=== PATIENT | male | born 1955 | race Caucasian/White ===

== ENCOUNTER → 2018-01-06 | Outpatient (CLI) | payer BC ==
[~2018-01-06] MED LIST: ATOR-24 PO; MELO7.5T5 PO; METF-383 PO; OMEP40CA PO; propanolol PO
--- NOTE | 2018-01-06 18:00 | DIAGNOSTIC IMAGING REPORT ---
L HAND MIN 3 VIEWS ROUTINE CLINICAL HISTORY: M79.641, M79.642, Z00.00 LEFT HAND PAIN. ARTHRITIS. COMPARISON: None. DISCUSSION: The bones are mildly osteopenic. No acute fractures are visualized. There are mild osteoarthritic changes present most pronounced the level of the distal interphalangeal joints, and first and second carpal metacarpal joints. No erosive changes are visualized IMPRESSION: Mild osteoarthritic change. No evidence of erosive disease. Electronically signed by: Marcio Rosen M.D. 01/06/2018 5:59 PM Dictated Date/Time: 01/06/2018 5:58 PM
--- NOTE | 2018-01-06 18:03 | DIAGNOSTIC IMAGING REPORT ---
L KNEE 1 OR 2 VIEWS ROUTINE, R KNEE 1 OR 2 VIEWS ROUTINE HISTORY: 62 years-old Male M79.641, M79.642, Z00.00 chronic bilateral knee pain with history of arthritis COMPARISON: Left knee radiographs 03/04/2008 TECHNIQUE: 2 views of the bilateral knees FINDINGS: LEFT: Left knee arthroplasty noted with satisfactory alignment. No evidence of hardware fracture or loosening. Prior patellar resurfacing. Linear ossifications are noted adjacent to the lateral aspect of the lateral femoral condyle and medial tibial plateau suggesting fragmented osteophytes. No large joint effusion. 4 mm ossification projects over Hoffa fat pad, possibly reflecting a loose body. RIGHT: Mild to moderate medial and lateral compartment joint space narrowing with mild patellofemoral joint space narrowing. The bones appear mildly demineralized. No acute fracture or subluxation. No large joint effusion or opaque foreign body. IMPRESSION: 1. Left knee total joint arthroplasty without evidence of hardware complication. 2. 4 mm ossification projecting over the left infra-patellar fat region may reflect a loose body. 3. No acute fracture or subluxation. 4. Tricompartmental osteoarthritis about the right knee, mild to moderate. The above report was generated using voice recognition software. It may contain grammatical, syntax or spelling errors. Electronically signed by: Antonio Lindquist M.D. 01/06/2018 6:02 PM Dictated Date/Time: 01/06/2018 5:57 PM
--- NOTE | 2018-01-06 18:10 | DIAGNOSTIC IMAGING REPORT ---
R HAND MIN 3 VIEWS ROUTINE CLINICAL HISTORY: M79.641, M79.642, Z00.00 RIGHT HAND PAIN COMPARISON: None. DISCUSSION: The bones are mildly osteopenic. The patient was unable to straighten his fingers fully. There are no erosive changes. There are mild osteoarthritic changes in the hand. There are moderate osteoarthritic changes in the wrist with significant narrowing of the lunate capitate interspace.. IMPRESSION: 1. No acute fractures 2. Osteoarthritic changes, most pronounced within the wrist 3. No evidence of erosive disease Electronically signed by: Marcio Rosen M.D. 01/06/2018 6:08 PM Dictated Date/Time: 01/06/2018 6:07 PM
[2018-01-06 18:25] LABS: TRANSFERRIN 232 mg/dl (200-360)
== END | disposition home or self-care (01) ==
LOC: C.RAD 17:22
PROVIDERS: ATTEND Internal Medicine Rheumatology
DX: Z00.00 Encounter for general adult medical examination without abnormal findings (principal); M79.641 Pain in right hand; M79.642 Pain in left hand; Z96.652 Presence of left artificial knee joint; M17.11 Unilateral primary osteoarthritis, right knee

== ENCOUNTER → 2018-01-23 | Outpatient (CLI) | payer BC ==
[2018-01-23 10:10] LABS: BASO % 0.1 %; BASO ABS # 0.01 K/uL (0-0.2); EOS % 0.5 %; EOS ABS # 0.06 K/uL (0-0.5); HEMATOCRIT 36.3 % (42-52); HEMOGLOBIN 12.4 g/dL (14.0-18.0); IG# 0.03 K/uL (0.00-0.02); LYMPH ABS # 3.03 K/uL (1.2-3.4); MEAN CELL VOLUME 91.4 fL (80-100); MEAN CORPUSCULAR HEMOGLOBIN 31.2 pg (25-34); MEAN CORPUSCULAR HGB CONC 34.2 g/dl (32-36); MEAN PLATELET VOLUME 10.3 fL (7.4-10.4); MONO % 4.1 %; MONO ABS # 0.46 K/uL (0.11-0.59); NEUT ABS # 7.65 K/uL (1.4-6.5); PLATELET COUNT 216 K/uL (130-400); RED CELL DISTRIBUTION WIDTH CV 14.6 % (11.5-14.5); RED CELL DISTRIBUTION WIDTH SD 48.7 fL (36.4-46.3); WHITE BLOOD COUNT 11.24 K/uL (4.8-10.8)
[2018-01-23 10:41] LABS: HEMOGLOBIN A1C 6.6 % (4.5-5.6)
[2018-01-23 10:42] LABS: ALBUMIN 4.2 gm/dl (3.4-5.0); ALT/SGPT 27 U/L (12-78); AST/SGOT 14 U/L (15-37); BLOOD UREA NITROGEN 25 mg/dl (7-18); CALCIUM 8.9 mg/dl (8.5-10.1); CARBON DIOXIDE 29 mmol/L (21-32); CREATININE 0.79 mg/dl (0.60-1.40); GLUCOSE 122 mg/dl (70-99); POTASSIUM 4.5 mmol/L (3.5-5.1); SODIUM 136 mmol/L (136-145)
[2018-01-23 10:47] LABS: ALKALINE PHOSPHATASE 59 U/L (45-117); CHOLESTEROL 144 mg/dl (0-200); LDL CHOLESTEROL CALCULATED 65 mg/dl; TOTAL PROTEIN 7.7 gm/dl (6.4-8.2)
== END | disposition home or self-care (01) ==
LOC: C.LAB1850 09:24
PROVIDERS: ATTEND Physician Assistant
DX: Z00.00 Encounter for general adult medical examination without abnormal findings (principal); E11.9 Type 2 diabetes mellitus without complications

== ENCOUNTER → 2018-05-13 | Outpatient (CLI) | payer BC ==
[2018-05-13 15:36] LABS: BASO % 0.4 %; BASO ABS # 0.03 K/uL (0-0.2); EOS % 1.3 %; EOS ABS # 0.09 K/uL (0-0.5); HEMATOCRIT 35.5 % (42-52); HEMOGLOBIN 11.8 g/dL (14.0-18.0); IG# 0.03 K/uL (0.00-0.02); LYMPH % 48.8 %; LYMPH ABS # 3.35 K/uL (1.2-3.4); MEAN CELL VOLUME 100.6 fL (80-100); MEAN CORPUSCULAR HEMOGLOBIN 33.4 pg (25-34); MEAN CORPUSCULAR HGB CONC 33.2 g/dl (32-36); MEAN PLATELET VOLUME 10.7 fL (7.4-10.4); MONO % 7.4 %; MONO ABS # 0.51 K/uL (0.11-0.59); NEUT % 41.7 %; NEUT ABS # 2.86 K/uL (1.4-6.5); PLATELET COUNT 203 K/uL (130-400); RED CELL DISTRIBUTION WIDTH CV 17.6 % (11.5-14.5); RED CELL DISTRIBUTION WIDTH SD 64.1 fL (36.4-46.3); WHITE BLOOD COUNT 6.87 K/uL (4.8-10.8)
[2018-05-13 16:09] LABS: ALBUMIN 4.2 gm/dl (3.4-5.0); ALKALINE PHOSPHATASE 54 U/L (45-117); ALT/SGPT 38 U/L (12-78); AST/SGOT 18 U/L (15-37); CREATININE 0.85 mg/dl (0.60-1.40); TOTAL PROTEIN 7.4 gm/dl (6.4-8.2)
== END | disposition home or self-care (01) ==
LOC: C.LAB1850 14:11
PROVIDERS: ATTEND Internal Medicine Rheumatology
DX: M06.09 Rheumatoid arthritis without rheumatoid factor, multiple sites (principal); Z79.899 Other long term (current) drug therapy; K21.9 Gastro-esophageal reflux disease without esophagitis

== ENCOUNTER 2019-04-20 16:14 | Inpatient (IN) ==
[2019-04-20] MEDS ORDERED: MoRPHine SULFATE 4 MG/ML 1 ML CARP\\VIAL IV STA (17:38)
[2019-04-20] MEDS ORDERED: ONDANSETRON INJ 2 MG/ML 2 ML VIAL IV STA (17:38)
[2019-04-20] MEDS: SODIUM CHLORIDE 0.9% 1000ML 1,000 ML IV SCH ×2 (18:41→18:42)
[2019-04-20 18:43] LABS: Basophils # (auto) 0.04 K/uL (0-0.2); Basophils % (auto) 0.9 %; Eosinophils # (auto) 0.13 K/uL (0-0.5); Hematocrit (blood only) 37.4 % (42-52); Lymphocytes # (auto) 1.75 K/uL (1.2-3.4); Lymphocytes % (auto) 40.9 %; Mean Corpuscular Hgb Conc 34.8 g/dL (32-36); Mean Corpuscular Volume 93.7 fL (80-100); Mean Platelet Volume 11.2 fL (7.4-10.4); Monocytes % (auto) 9.3 %; Neutrophils # (auto) 1.96 K/uL (1.4-6.5); Neutrophils % (auto) 45.9 %; Platelet Count 162 K/uL (130-400); RDW Coefficient of Variation 15.3 % (11.5-14.5); RDW Standard Deviation 50.7 fL (36.4-46.3); Red Blood Count 3.99 M/uL (4.7-6.1); White Blood Count 4.28 K/uL (4.8-10.8)
[2019-04-20 18:51] LABS: INR 1.2 (0.9-1.1); Prothrombin Time 12.6 Seconds (9.0-12.0)
[2019-04-20 18:59] LABS: Alanine Aminotransferase 30 U/L (12-78); Aspartate Aminotransferase 37 U/L (15-37); BUN Creatinine Ratio 4.3 (10-20); Blood Urea Nitrogen 6 mg/dl (7-18); Carbon Dioxide 28 mmol/L (21-32); Chloride 103 mmol/L (98-107); Creatinine Clr Calc Pharmacy 61.3 ml/min; Est GFR (African American) 59.8; Est GFR (Non-African American) 51.6; Glucose 126 mg/dl (70-99); Potassium 3.1 mmol/L (3.5-5.1); Sodium 141 mmol/L (136-145)
[2019-04-20 19:04] LABS: Albumin Globulin Ratio 1.4 (0.9-2); Alkaline Phosphatase 36 U/L (45-117); Bilirubin,Total 1.6 mg/dl (0.2-1); Globulin 2.9 gm/dl (2.5-4.0); Total Protein 6.9 gm/dl (6.4-8.2); Troponin I < 0.015 ng/ml (0-0.045)
[2019-04-20] MEDS ORDERED: SODIUM CHLORIDE 0.9% 1000ML 1,000 ML IV ONE (19:43)
[2019-04-20] MEDS ORDERED: IOVERSOL 100ml IV PRN (20:07)
[2019-04-20 20:22] LABS: Appearance Urine Clear (Clear); Bilirubin Urine Negative (Negative); Blood Urine Negative (Negative); Color Urine Yellow; Glucose Urine UA Negative (Negative); Ketones Urine Trace (Negative); Leukocyte Esterase Urine Negative (Negative); Nitrite Urine Negative (Negative); Protein Urine Negative (Negative); Specific Gravity Urine 1.018 (1.000-1.030); Urobilinogen Urine Negative (Negative)
--- NOTE | 2019-04-20 20:36 | CT Scan Report ---
CT OF THE ABDOMEN AND PELVIS WITH CONTRAST CLINICAL HISTORY: Severe abdominal pain and vomiting. COMPARISON STUDY: CT of the abdomen and pelvis April 13, 2019. TECHNIQUE: Following IV administration of Optiray-320, axial images of the abdomen and pelvis were ob tained from the lung bases to the proximal femurs. Images were reviewed in the axial, sagittal, and c oronal planes. IV contrast was administered without complication. Automated exposure control was uti lized for the study. A dose lowering technique was utilized adhering to the principles of ALARA. CT DOSE: 1050.74 mGy.cm FINDINGS: Fatty infiltration of the liver is noted. The spleen, adrenal glands, kidneys and pancreas are normal. There is no peripancreatic infiltration. No biliary or pancreatic ductal dilatation is no philippe. There is no hydronephrosis. The appendix is normal. The caliber and wall thickness of small and large bowel are normal. Postoperative findings within the spine are noted. There is no lymphadenopath y or ascites. No pneumatosis, free air or portal venous gas is present. Right testis may be located w ithin the right inguinal canal. This was not evident on prior CT. This may reflect a retractile testi s. IMPRESSION: 1. No acute process within the abdomen or pelvis. 2. Fatty liver. Electronically signed by: Steven Jackson M.D. 04/20/2019 8:35 PM
--- NOTE | 2019-04-20 20:51 | XRay Report ---
XR chest 1V portable CLINICAL HISTORY: vomiting COMPARISON STUDY: Chest radiograph April 13, 2019. FINDINGS: Lung volumes are normal. Linear left basilar opacity suggests atelectasis. There is no pneu mothorax or pleural effusion. Mild cardiomegaly is noted. Mediastinal contours are normal. There is n o evidence for pulmonary edema. IMPRESSION: No acute cardiopulmonary findings. Electronically signed by: Steven Jackson M.D. 04/20/2019 8:50 PM
--- NOTE | 2019-04-20 20:53 | Emergency Department Note ---
Entered by Emma Torres acting as a scribe for History of Present Illness General Chief complaint: Pain (Generalized) Stated complaint: STOMACH , BACK, LEG PAIN Source: patient and family History of Present Illness Onset (ago): week(s) 2 Location: abdomen Pain Consistency: + other (persistent) Maximum Pain Intensity: 5 Quality: + other (generalized pain) Relieved By: not by medication (Zofran) Exacerbated By: + eating Associated symptoms: + fever/chills (Positive chills. Negative fever. ), + nausea/vomiting, + weakness and + other (abdomianl pain, fatigue, pain with urination, hard bowel movements, leg swelling, leg pain) The patient is a 63 year old male who presents to the ED with complaints of persistent generalized pain starting 2 weeks ago. Patient was referred in by his PCP. The patient states that for the past 2 weeks he has been unable to keep anything down. He states that he has been able to keep down minimal fluids. He notes that he does feel like something gets stuck when he swallows in his chest. He states that he has also had abdominal pain across where his belt lays. He reports that it is worse with eating. He states that he as at the ED for the same symptoms on the . He states that they did blood work, a chest x-ray and a CT of his chest. He reports that they discharged him with Zofran. He states that he followed up with his PCP who gave him another prescription of Zofran, but it has not been working. He reports that now he is too weak and t ired to do anything. The patient complains of chills, pain with urination starting a few days ago, bowel movements that are hard as a rock, and leg swelling and pain. The patients notes that this is very unlike him and he is usually very busy running around. She notes that he had back surgery 10/10/2018 that he has a 6 month check up tomorrow to be released to go back to work. The patient denies fever. Of note patient does have a history of esophageal stricture with dilation performed around last July. Home Medications Home Medications Medication Instructions Recorded Confirmed Type atorvastatin 40 mg PO QAM 08/07/18 04/20/19 History meloxicam 15 mg PO QAM 08/07/18 04/20/19 History propranolol 20 mg PO BID 08/07/18 04/20/19 History folic acid 1 mg tablet 1 mg PO DAILY #90 tab 03/25/19 04/20/19 Rx metformin 1,000 mg tablet 1,000 mg PO BID #180 tab 03/25/19 04/20/19 Rx omeprazole 20 mg capsule,delayed 20 mg PO BID #180 cap 04/01/19 04/20/19 Rx release etanercept 50 mg/mL (0.98 mL) 50 mg SQ WK ml 04/13/19 04/20/19 History subcutaneous syringe ondansetron 8 mg PO Q8H PRN 04/20/19 04/20/19 History Allergies Allergy/AdvReac Type Severity Reaction Status Date / Time No Known Allergies Allergy Verified 04/20/19 18:38 Past Med/Surg History Medical History Esophageal stricture Central stenosis of spinal canal (Inactive) Sciatica (Inactive) 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 Degenerative disc disease Diabetes mellitus, type 2 History of esophageal stricture S/P DILATION Hyperlipidemia Hypertension Migraine Obesity Rheumatoid arthritis Surgical History History of back surgery History of blepharoplasty History of esophagogastroduodenoscopy (EGD) History of tooth extraction History of total knee replacement LEFT Family History Mother Family history of diabetes mellitus Hypertension Father Cancer Social History Preferred Language: Kazakh Communication Ability: Effective Visual Impairment: No Limitations Hearing Ability: Normal Beliefs That Will Affect Care: None marital status: Current Living Situation: Spouse current occupational status: employed Feels Safe at Home: Yes Smoking Status: Never smoker Second Hand Exposure: No Hx Alcohol Use: No Hx Substance Use: No Review of Systems See HPI for pertinent positives & negatives. and A total of 10 systems reviewed and were otherwise negative Physical Exam Vital Signs Vital Signs - 24 hr 04/20/19 16:32 04/20/19 17:38 04/20/19 18:22 Temperature 36.9 C Temperature Source Oral Sepsis Recent Fever Within 48 Hours No Sepsis Action Taken by Nursing No Action Required Pulse Rate 78 72 73 Pulse Rate [Apical] Pulse Rate from SpO2 Sensor Pulse Rhythm Regular Regular Pulse Rhythm [Apical] Pulse Strength Normal Pulse Strength [Apical] Respiratory Rate 20 20 20 Respiratory Effort / Characteristics Non-Labored Spontaneous Respiratory Depth Normal Respiratory Pattern Blood Pressure 122/80 164/99 H Blood Pressure [Left Arm] Blood Pressure Mean 94 120 Blood Pressure Mean [Left Arm] Blood Pressure Position [Left Arm] Pulse Oximetry 95 97 Oxygen Delivery Method Room Air Room Air 04/20/19 18:31 04/20/19 18:48 04/20/19 18:53 Temperature Temperature Source Sepsis Recent Fever Within 48 Hours Sepsis Action Taken by Nursing Pulse Rate 78 72 70 Pulse Rate [Apical] Pulse Rate from SpO2 Sensor Pulse Rhythm Pulse Rhythm [Apical] Pulse Strength Pulse Strength [Apical] Respiratory Rate 22 19 17 Respiratory Effort / Characteristics Respiratory Depth Respiratory Pattern Blood Pressure 211/140 H 123/72 Blood Pressure [Left Arm] Blood Pressure Mean 163 89 Blood Pressure Mean [Left Arm] Blood Pressure Position [Left Arm] Pulse Oximetry Oxygen Delivery Method 04/20/19 19:00 04/20/19 20:50 Temperature Temperature Source Sepsis Recent Fever Within 48 Hours Sepsis Action Taken by Nursing Pulse Rate 66 Pulse Rate [Apical] 77 Pulse Rate from SpO2 Sensor 65 Pulse Rhythm Pulse Rhythm [Apical] Regular Pulse Strength Pulse Strength [Apical] Normal Respiratory Rate 18 24 Respiratory Effort / Characteristics Non-Labored Respiratory Depth Normal Respiratory Pattern Regular Blood Pressure 131/71 Blood Pressure [Left Arm] 117/76 Blood Pressure Mean 91 Blood Pressure Mean [Left Arm] 89 Blood Pressure Position [Left Arm] Lying Pulse Oximetry 93 93 Oxygen Delivery Method Room Air GENERAL: sitting up in bed, ill appearing, dishevled, falling asleep through conversation EYE EXAM: normal conjunctiva OROPHARYNX: no exudate, no erythema, lips, buccal mucosa, and tongue normal and mucous membranes are moist NECK: supple, no nuchal rigidity, no adenopathy, non-tender LUNGS: Clear to auscultation. Normal chest wall mechanics HEART: no murmurs, S1 normal and S2 normal ABDOMEN: abdomen soft, tender to palpation throughout the upper abdomen, normo- active bowel sounds, no masses, no rebound or guarding. BACK: Back is symmetrical on inspection and there is no deformity, no midline tenderness, no CVA tenderness. SKIN: no rashes and no bruising UPPER EXTREMITIES: upper extremities are grossly normal. LOWER EXTREMITIES: No pitting edema. NEURO EXAM: Normal sensorium, cranial nerves II-XII grossly intact, normal speech, no gross weakness of arms, no gross weakness of legs. Able to ambulate without difficulty. Course ED COURSE: Vital signs were reviewed and showed hypertension situationally. The patients medical record was reviewed The above diagnostic studies were performed and reviewed. ED treatments and interventions as stated above. 1730: The patient was evaluated in room C6. A complete history and physical examination was performed. 1950: I reevaluated the patient and he got up to give a urine at this time. []: Upon reevaluation, the patient is resting comfortably. I discussed my findings with the patient and he understands and agrees with the treatment plan. Based on the patients age, coexisting illnesses, exam and lab findings the decision to treat as an inpatient was made. The patient remained stable while under my care. The patient will be evaluated for further management. []: I discussed the patient's case with []- [] [facility]. They will evaluate the patient for further management. Consultations Consultation #1: I discussed the patient's case with []- [] [facility]. They will evaluate the patient for further management. Administered Medications Ioversol (Optiray 320 100ml) 94 ml IV ONCE PRN PRN Reason: Interaction Checking Stop: 04/24/19 20:06 Last Admin: 04/20/19 20:07 Dose: 94 ml Documented by: [id number] Discontinued Medications Sodium Chloride (Nss 1000ml) 1,000 mls @ 999 mls/hr IV .Q1H1M KATIE Stop: 04/20/19 19:45 Last Infusion: 04/20/19 19:53 Dose: 0 mls/hr Documented by: [id number] Admin: 04/20/19 18:42 Dose: 999 mls/hr Documented by: [id number] Infusion: 04/20/19 18:42 Dose: 999 mls/hr Documented by: [id number] Admin: 04/20/19 18:41 Dose: 999 mls/hr Documented by: [id number] Sodium Chloride (Nss 1000ml) 1,000 mls @ 999 mls/hr IV .Q1H1M ONE Stop: 04/20/19 20:43 Last Admin: 04/20/19 19:58 Dose: 999 mls/hr Documented by: [id number] Morphine Sulfate (Morphine Sulfate) 4 mg IV NOW STA Stop: 04/20/19 17:39 Last Admin: 04/20/19 18:42 Dose: 4 mg Documented by: [id number] Ondansetron HCl (Zofran) 4 mg IV NOW STA Stop: 04/20/19 17:39 Last Admin: 04/20/19 18:42 Dose: 4 mg Documented by: [id number] Medical Decision Making Differential Diagnosis Differential Diagnosis includes but is not limited to dehydration, stroke, anemia, hypoglycemia, hyponatremia, hypernatremia, urinary tract infection, pneumonia, bronchitis, sepsis, gastroenteritis, additional abdominal pathology, metabolic abnormalities and infections. Medical Records Attestation: I reviewed the patient's medical records. Home Medications Current Medication List: was personally reviewed by me Laboratory Data Attestation: I reviewed the patient's lab results. Result diagrams: 04/20/19 18:24 04/20/19 18:24 Lab Results 04/20/19 04/20/19 04/20/19 Range/Units 18:24 18:24 18:24 WBC 4.28 L (4.8-10.8) K/uL RBC 3.99 L (4.7-6.1) M/uL Hgb 13.0 L (14.0-18.0) g/dL Hct 37.4 L (42-52) % MCV 93.7 (80-100) fL MCH 32.6 (25-34) pg MCHC 34.8 (32-36) g/dL RDW Std Deviation 50.7 H (36.4-46.3) fL RDW Coeff of Tanvir 15.3 H (11.5-14.5) % Plt Count 162 (130-400) K/uL MPV 11.2 H (7.4-10.4) fL Immature Gran % (Auto) 0.0 % Neut % (Auto) 45.9 % Lymph % (Auto) 40.9 % [place] % (Auto) 9.3 % Eos % (Auto) 3.0 % Baso % (Auto) 0.9 % Immature Gran # (Auto) 0.00 (0.00-0.02) K/uL Neut # (Auto) 1.96 (1.4-6.5) K/uL Lymph # (Auto) 1.75 (1.2-3.4) K/uL [place] # (Auto) 0.40 (0.11-0.59) K/uL Eos # (Auto) 0.13 (0-0.5) K/uL Baso # (Auto) 0.04 (0-0.2) K/uL PT 12.6 H (9.0-12.0) Seconds INR 1.2 H (0.9-1.1) Sodium 141 (136-145) mmol/L Potassium 3.1 L (3.5-5.1) mmol/L Chloride 103 (98-107) mmol/L Carbon Dioxide 28 (21-32) mmol/L Anion Gap 10.0 (3-11) BUN 6 L (7-18) mg/dl Creatinine 1.45 H (0.6-1.4) mg/dl Est Cr Clr Drug Dosing 61.3 ml/min Est GFR ( Amer) 59.8 Est GFR (Non-Af Amer) 51.6 BUN/Creatinine Ratio 4.3 L (10-20) Glucose 126 H (70-99) mg/dl Calcium 9.0 (8.5-10.1) mg/dl Total Bilirubin 1.6 H (0.2-1) mg/dl AST 37 (15-37) U/L ALT 30 (12-78) U/L Alkaline Phosphatase 36 L (45-117) U/L Troponin I < 0.015 (0-0.045) ng/ml Total Protein 6.9 (6.4-8.2) gm/dl Albumin 4.0 (3.4-5.0) gm/dl Globulin 2.9 (2.5-4.0) gm/dl Albumin/Globulin Ratio 1.4 (0.9-2) Lipase 187 (73-393) U/L Urine Color Urine Appearance (Clear) Urine pH (4.5-7.5) Ur Specific [place] (1.000-1.030) Urine Protein (Negative) Urine Glucose (UA) (Negative) Urine Ketones (Negative) Urine Blood (Negative) Urine Nitrite (Negative) Urine Bilirubin (Negative) Urine Urobilinogen (Negative) Ur Leukocyte Esterase (Negative) 04/20/19 Range/Units 20:03 WBC (4.8-10.8) K/uL RBC (4.7-6.1) M/uL Hgb (14.0-18.0) g/dL Hct (42-52) % MCV (80-100) fL MCH (25-34) pg MCHC (32-36) g/dL RDW Std Deviation (36.4-46.3) fL RDW Coeff of Tanvir (11.5-14.5) % Plt Count (130-400) K/uL MPV (7.4-10.4) fL Immature Gran % (Auto) % Neut % (Auto) % Lymph % (Auto) % [place] % (Auto) % Eos % (Auto) % Baso % (Auto) % Immature Gran # (Auto) (0.00-0.02) K/uL Neut # (Auto) (1.4-6.5) K/uL Lymph # (Auto) (1.2-3.4) K/uL [place] # (Auto) (0.11-0.59) K/uL Eos # (Auto) (0-0.5) K/uL Baso # (Auto) (0-0.2) K/uL PT (9.0-12.0) Seconds INR (0.9-1.1) Sodium (136-145) mmol/L Potassium (3.5-5.1) mmol/L Chloride (98-107) mmol/L Carbon Dioxide (21-32) mmol/L Anion Gap (3-11) BUN (7-18) mg/dl Creatinine (0.6-1.4) mg/dl Est Cr Clr Drug Dosing ml/min Est GFR ( Amer) Est GFR (Non-Af Amer) BUN/Creatinine Ratio (10-20) Glucose (70-99) mg/dl Calcium (8.5-10.1) mg/dl Total Bilirubin (0.2-1) mg/dl AST (15-37) U/L ALT (12-78) U/L Alkaline Phosphatase (45-117) U/L Troponin I (0-0.045) ng/ml Total Protein (6.4-8.2) gm/dl Albumin (3.4-5.0) gm/dl Globulin (2.5-4.0) gm/dl Albumin/Globulin Ratio (0.9-2) Lipase (73-393) U/L Urine Color Yellow Urine Appearance Clear (Clear) Urine pH 5.0 (4.5-7.5) Ur Specific [place] 1.018 (1.000-1.030) Urine Protein Negative (Negative) Urine Glucose (UA) Negative (Negative) Urine Ketones Trace H (Negative) Urine Blood Negative (Negative) Urine Nitrite Negative (Negative) Urine Bilirubin Negative (Negative) Urine Urobilinogen Negative (Negative) Ur Leukocyte Esterase Negative (Negative) Imaging Data Radiologist's Impression: CT OF THE ABDOMEN AND PELVIS WITH CONTRAST CLINICAL HISTORY: Severe abdominal pain and vomiting. COMPARISON STUDY: CT of the abdomen and pelvis April 13, 2019. TECHNIQUE: Following IV administration of Optiray-320, axial images of the abdomen and pelvis were obtained from the lung bases to the proximal femurs. Images were reviewed in the axial, sagittal, and coronal planes. IV contrast was administered without complication. Automated exposure control was utilized for the study. A dose lowering technique was utilized adhering to the principles of ALARA. CT DOSE: 1050.74 mGy.cm FINDINGS: Fatty infiltration of the liver is noted. The spleen, adrenal glands, kidneys and pancreas are normal. There is no peripancreatic infiltration. No biliary or pancreatic ductal dilatation is noted. There is no hydronephrosis. The appendix is normal. The caliber and wall thickness of small and large bowel are normal. Postoperative findings within the spine are noted. There is no lymphadenopathy or ascites. No pneumatosis, free air or portal venous gas is present. Right testis may be located within the right inguinal canal. This was not evident on prior CT. This may reflect a retractile testis. IMPRESSION: 1. No acute process within the abdomen or pelvis. 2. Fatty liver. ECG Data Attestation: I personally reviewed and interpreted this ECG as follows: Indication: abdominal pain Rate (beats per minute): 67 Rhythm: sinus rhythm Findings: + other (t wave flattening in the lateral leads), + RBBB and + prolonged QT; no PVC Comparison ECG Date: from (04/13/2019) Change: the following changes noted (T wave flattening in the lateral leads is new) Blood Pressure Blood Pressure Findings: Elevated blood pressure Blood Pressure Disposition: elevated BP felt to be situational MDM Narrative Patient is a 63-year-old male who presents the ER for diffuse abdominal pain associated with myalgias and feeling food gets stuck and vomiting it back up. He has a past medical history of a previous esophageal stricture with dilation last July. He notes the symptoms do feel slightly similar. Patient was seen here notes that symptom has been present for the past 2 to 3 weeks. He notes he has been unable to eat anything as after eating he vomits everything back up and has severe belly pain. Patient was referred in by the primary care doctor as he is unable to eat anything. He has been using Zofran without improvement. Patient was given IV fluids. Labs show no significant leukocytosis or anemia. BMP with baseline creatinine of 0.9. Currently slightly elevated at 1.45. Potassium was low at 3.1. LFTs was unremarkable. Bilirubin was slightly elevated at 1.6. Troponin was negative. Lipase was unremarkable. Chest x-ray with some atelectasis in left lower lobe. CT abdomen pelvis shows again no acute findings. Patient was given IV fluids. He was given IV Zofran. Updated bedside. Discussed with the hospitalist as he was sent in by the PCP and this is second visit and still unable to keep anything down. Do favor he may end up needing another EGD with the history of esophageal strictures and unable to keep anything down at this time. Discussed with Dr. Joel at 9 PM and patient will be evaluated for further work-up. Impression & Plan Nausea & vomiting, Abdominal pain, Esophageal stricture Discharge Plan Visit Data Chief Complaint: Pain (Generalized) Stated Complaint: STOMACH , BACK, LEG PAIN ED Provider: Clay Garcias Discharge Problem: Nausea & vomiting, Abdominal pain, Esophageal stricture Patient Disposition: Being Evaluated by Hospitalist Forms Stand Alone Forms: My [facility] Prescriptions Prescriptions: No Action folic acid 1 mg tablet 1 mg PO DAILY Qty: 90 RF: 1 metformin 1,000 mg tablet 1,000 mg PO BID Qty: 180 RF: 1 omeprazole 20 mg capsule,delayed release(DR/EC) 20 mg PO BID Qty: 180 RF: 3 Enbrel 50 mg/mL (0.98 mL) syringe 50 mg SQ WK RF: 0 ondansetron 8 mg tablet,disintegrating 8 mg PO Q8H PRN (Reason: Nausea) RF: 0 atorvastatin 40 mg Tablet 40 mg PO QAM RF: 0 meloxicam 15 mg Tablet 15 mg PO QAM RF: 0 propranolol 20 mg Tablet 20 mg PO BID RF: 0 Referrals Referrals: Pro,Fadi Lau MD [Primary Care Provider] - The scribe's documentation has been prepared under my direction and personally reviewed by me in its entirety. I confirm that the note above accurately reflects all work, treatment, procedures, and medical decision making performed by me.
--- NOTE | 2019-04-20 22:02 | History & Physical Report ---
Date of Service April 20, 2019 Assessment & Plan (1) Nausea & vomiting: Patient presenting with nausea, post-prandial vomiting and feeling of food getting stuck. 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 EGD performed on 08/04/18 with normal esop hagus. NO endoscopic evidence of Nascimento's esophagus. Biopsy showed inflammation with no evidence of Nascimento's esophagitis. Normal stomach and duodenum. Patient with poor appetite, PO intolerance and post-prandial nausea and vomiting. ?GERD vs esophagitis vs Nascimento's vs stricture. ?steroid withdrawal syndrome? -Observation to medical floor -IVF hydration -Electrolyte repletion -Avoid QT prolonging agents as QTc= 505 -Pepcid 20mg IV BID -GI consultation - appreciate assistance with this case. -NPO for now, holding Meloxicam for now for possible EGD/biopsy Present on Admission?: Yes (2) Acute dehydration: Mildly increased Cr, hypokalemia. Patient reports poor po tolerance. Normal UOP. Received 2L NSS in ER -LR at 125mL/hr x 2 liters -Repeat chemistry in AM Present on Admission?: Yes (3) Hypertension: Blood pressure stable at present -Continue Propranolol -Continue to monitor Present on Admission?: Yes (4) Rheumatoid arthritis: Patient presently on Enbrel q weekly, last received today. Was on MTX and steroids in the past but has since been weaned off. ?steroid withdrawal as patient's symptoms began at the time that steroids were discontinued - weakness/fatigue/lethargy/poor appetite/nausea. He is hemodynamically stable, electrolytes with mild hypokalemia. -Continue Enbrel q weekly -Continue Folic Acid -Will give Prednisone 5mg po daily and assess symptoms -Followup with Rheumatology Present on Admission?: Yes (5) Diabetes: Well controlled with Metformin. BS presently 126, HgAIC=7.2 in September 2018 -Hold Metformin while inpatient -ISS Present on Admission?: Yes (6) High cholesterol: Chronic. -Continue Atorvastatin F/E/N - LR at 125mL/hr x 2 liters, KCL 20mEQ IV, NPO for now Ppx - Pepcid BID, low risk for DVT Code - DNR/DNI per discussion with patient Dispo - Observation to medical floor History of Present Illness Chief Complaint: Nausea, post-prandial vomiting, po intoleratnce Primary Care Provider: Fadi Bhatt MD Jose Amado is a 63yo C male with history of DM, HTN, RA and Nascimento's esophagus s/p dilation presenting with post-prandial nausea and vomiting as well as weakness, fatigue and malaise. Patient with history of RA for which he was taking Prednisone for approximately 3 years. He has since been tapered off - last dose of Prednisone was approximately 3 weeks ago. Patient began feeling unwell shortly after steroids were stopped. He developed nausea, watery diarrhea and post-prandial vomiting 3 weeks ago followed by weakness/fatigue and lethargy appx 2 weeks ago. He has had worsening nausea and dry heaves as well as poor appetite for the last 3-4 days. He reports food getting stuck in the substernal region with vomiting of liquid and mucus 10 minutes after eating. No hematemesis/coffee ground emesis. He has had constipation - last BM yesterday, small/hard stool. Mild lower abdominal pain. He has been taking Zofran frequently at home for nausea. Denies chest pain, palpitations, SOB. No urinary complaints. No fevers/chills. No additional complaints at this time. ER Course: Zofran, Morphine, NSS x 2 liters Allergies Allergy/AdvReac Type Severity Reaction Status Date / Time No Known Allergies Allergy Verified 04/20/19 18:38 Home Medications Home Medications Medication Instructions Recorded Confirmed Type atorvastatin 40 mg PO QAM 08/07/18 04/20/19 History meloxicam 15 mg PO QAM 08/07/18 04/20/19 History propranolol 20 mg PO BID 08/07/18 04/20/19 History folic acid 1 mg tablet 1 mg PO DAILY #90 tab 03/25/19 04/20/19 Rx metformin 1,000 mg tablet 1,000 mg PO BID #180 tab 03/25/19 04/20/19 Rx omeprazole 20 mg capsule,delayed 20 mg PO BID #180 cap 04/01/19 04/20/19 Rx release etanercept 50 mg/mL (0.98 mL) 50 mg SQ WK ml 04/13/19 04/20/19 History subcutaneous syringe ondansetron 8 mg PO Q8H PRN 04/20/19 04/20/19 History Past Med/Surg History Medical History Central stenosis of spinal canal (Inactive) Sciatica (Inactive) 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 Degenerative disc disease Diabetes mellitus, type 2 History of esophageal stricture S/P DILATION Hyperlipidemia Hypertension Migraine Obesity Rheumatoid arthritis Surgical History History of back surgery History of blepharoplasty History of tooth extraction History of total knee replacement LEFT Family History Mother Family history of diabetes mellitus Hypertension Father Cancer Social History Preferred Language: Venezuelan Communication Ability: Effective Visual Impairment: No Limitations Hearing Ability: Normal Beliefs That Will Affect Care: None marital status: Current Living Situation: Spouse current occupational status: employed Feels Safe at Home: Yes Smoking Status: Never smoker Second Hand Exposure: No Hx Alcohol Use: No Hx Substance Use: No Review of Systems Review of Systems: All systems reviewed & are unremarkable except as noted in HPI & below +weakness, lethargy, malaise +dysphagia +appetite loss +constipation Physical Exam Physical Exam: General: patient resting comfortably, NAD, non-toxic in appearance, AA&O x 4 Skin: warm, dry, intact, no rashes or lesions HEENT: NC/AT, PERRL, EOMI, anicteric sclera, conjunctiva without injection, external ear normal to inspection and nontender, nares patent, DRY cracked lips and mucus membranes, adentulous, no oropharyngeal lesions, neck supple, trachea midline, no LAD, no thyromegaly, no JVD Heart: +S1/S2, regular, no m/r/g Lungs: equal air entry bilaterally, no rales/rhonchi/wheezes Abd: +BS, soft, NT/ND, no masses/organomegaly/ascites Ext: warm, 2+ pulses in UE/LE bilaterally, +digital clubbing in fingers, + trace pitting edema of bilateral LEs Neuro: nonfocal, patient AA&O x 4, speech intact, no facial droop, moving all extremities on command with equal strength mildly diminished 4/5 Results & Data Vital Signs (Past 12 Hours) Vital Signs Temp Pulse Pulse Resp BP BP Pulse Ox 04/20/19 20:50 77 24 117/76 93 04/20/19 19:00 66 18 131/71 93 04/20/19 18:53 70 17 123/72 04/20/19 18:48 72 19 211/140 H 04/20/19 18:31 78 22 04/20/19 18:22 73 20 164/99 H 04/20/19 17:38 72 20 97 04/20/19 16:32 36.9 C 78 20 122/80 95 Laboratory Results Lab Results 04/20/19 04/20/19 04/20/19 Range/Units 18:24 18:24 18:24 WBC 4.28 L (4.8-10.8) K/uL RBC 3.99 L (4.7-6.1) M/uL Hgb 13.0 L (14.0-18.0) g/dL Hct 37.4 L (42-52) % MCV 93.7 (80-100) fL MCH 32.6 (25-34) pg MCHC 34.8 (32-36) g/dL RDW Std Deviation 50.7 H (36.4-46.3) fL RDW Coeff of Tanvir 15.3 H (11.5-14.5) % Plt Count 162 (130-400) K/uL MPV 11.2 H (7.4-10.4) fL Immature Gran % (Auto) 0.0 % Neut % (Auto) 45.9 % Lymph % (Auto) 40.9 % Trigg % (Auto) 9.3 % Eos % (Auto) 3.0 % Baso % (Auto) 0.9 % Immature Gran # (Auto) 0.00 (0.00-0.02) K/uL Neut # (Auto) 1.96 (1.4-6.5) K/uL Lymph # (Auto) 1.75 (1.2-3.4) K/uL Trigg # (Auto) 0.40 (0.11-0.59) K/uL Eos # (Auto) 0.13 (0-0.5) K/uL Baso # (Auto) 0.04 (0-0.2) K/uL PT 12.6 H (9.0-12.0) Seconds INR 1.2 H (0.9-1.1) Sodium 141 (136-145) mmol/L Potassium 3.1 L (3.5-5.1) mmol/L Chloride 103 (98-107) mmol/L Carbon Dioxide 28 (21-32) mmol/L Anion Gap 10.0 (3-11) BUN 6 L (7-18) mg/dl Creatinine 1.45 H (0.6-1.4) mg/dl Est Cr Clr Drug Dosing 61.3 ml/min Est GFR ( Amer) 59.8 Est GFR (Non-Af Amer) 51.6 BUN/Creatinine Ratio 4.3 L (10-20) Glucose 126 H (70-99) mg/dl Calcium 9.0 (8.5-10.1) mg/dl Total Bilirubin 1.6 H (0.2-1) mg/dl AST 37 (15-37) U/L ALT 30 (12-78) U/L Alkaline Phosphatase 36 L (45-117) U/L Troponin I < 0.015 (0-0.045) ng/ml Total Protein 6.9 (6.4-8.2) gm/dl Albumin 4.0 (3.4-5.0) gm/dl Globulin 2.9 (2.5-4.0) gm/dl Albumin/Globulin Ratio 1.4 (0.9-2) Lipase 187 (73-393) U/L Urine Color Urine Appearance (Clear) Urine pH (4.5-7.5) Ur Specific [place] (1.000-1.030) Urine Protein (Negative) Urine Glucose (UA) (Negative) Urine Ketones (Negative) Urine Blood (Negative) Urine Nitrite (Negative) Urine Bilirubin (Negative) Urine Urobilinogen (Negative) Ur Leukocyte Esterase (Negative) 04/20/19 Range/Units 20:03 WBC (4.8-10.8) K/uL RBC (4.7-6.1) M/uL Hgb (14.0-18.0) g/dL Hct (42-52) % MCV (80-100) fL MCH (25-34) pg MCHC (32-36) g/dL RDW Std Deviation (36.4-46.3) fL RDW Coeff of Tanvir (11.5-14.5) % Plt Count (130-400) K/uL MPV (7.4-10.4) fL Immature Gran % (Auto) % Neut % (Auto) % Lymph % (Auto) % Trigg % (Auto) % Eos % (Auto) % Baso % (Auto) % Immature Gran # (Auto) (0.00-0.02) K/uL Neut # (Auto) (1.4-6.5) K/uL Lymph # (Auto) (1.2-3.4) K/uL Trigg # (Auto) (0.11-0.59) K/uL Eos # (Auto) (0-0.5) K/uL Baso # (Auto) (0-0.2) K/uL PT (9.0-12.0) Seconds INR (0.9-1.1) Sodium (136-145) mmol/L Potassium (3.5-5.1) mmol/L Chloride (98-107) mmol/L Carbon Dioxide (21-32) mmol/L Anion Gap (3-11) BUN (7-18) mg/dl Creatinine (0.6-1.4) mg/dl Est Cr Clr Drug Dosing ml/min Est GFR ( Amer) Est GFR (Non-Af Amer) BUN/Creatinine Ratio (10-20) Glucose (70-99) mg/dl Calcium (8.5-10.1) mg/dl Total Bilirubin (0.2-1) mg/dl AST (15-37) U/L ALT (12-78) U/L Alkaline Phosphatase (45-117) U/L Troponin I (0-0.045) ng/ml Total Protein (6.4-8.2) gm/dl Albumin (3.4-5.0) gm/dl Globulin (2.5-4.0) gm/dl Albumin/Globulin Ratio (0.9-2) Lipase (73-393) U/L Urine Color Yellow Urine Appearance Clear (Clear) Urine pH 5.0 (4.5-7.5) Ur Specific [place] 1.018 (1.000-1.030) Urine Protein Negative (Negative) Urine Glucose (UA) Negative (Negative) Urine Ketones Trace H (Negative) Urine Blood Negative (Negative) Urine Nitrite Negative (Negative) Urine Bilirubin Negative (Negative) Urine Urobilinogen Negative (Negative) Ur Leukocyte Esterase Negative (Negative) Diagnostic Findings XR chest 1V portable CLINICAL HISTORY: vomiting COMPARISON STUDY: Chest radiograph April 13, 2019. FINDINGS: Lung volumes are normal. Linear left basilar opacity suggests atelectasis. There is no pneumothorax or pleural effusion. Mild cardiomegaly is noted. Mediastinal contours are normal. There is no evidence for pulmonary edema. IMPRESSION: No acute cardiopulmonary findings. Electronically signed by: Steven Jackson M.D. 04/20/2019 8:50 PM Dictated: 04/20/192048 Transcribed: 04/20/192048 CT OF THE ABDOMEN AND PELVIS WITH CONTRAST CLINICAL HISTORY: Severe abdominal pain and vomiting. COMPARISON STUDY: CT of the abdomen and pelvis April 13, 2019. TECHNIQUE: Following IV administration of Optiray-320, axial images of the abdomen and pelvis were obtained from the lung bases to the proximal femurs. Images were reviewed in the axial, sagittal, and coronal planes. IV contrast was administered without complication. Automated exposure control was utilized for the study. A dose lowering technique was utilized adhering to the principles of ALARA. CT DOSE: 1050.74 mGy.cm FINDINGS: Fatty infiltration of the liver is noted. The spleen, adrenal glands, kidneys and pancreas are normal. There is no peripancreatic infiltration. No biliary or pancreatic ductal dilatation is noted. There is no hydronephrosis. The appendix is normal. The caliber and wall thickness of small and large bowel are normal. Postoperative findings within the spine are noted. There is no lymphadenopathy or ascites. No pneumatosis, free air or portal venous gas is present. Right testis may be located within the right inguinal canal. This was not evident on prior CT. This may reflect a retractile testis. IMPRESSION: 1. No acute process within the abdomen or pelvis. 2. Fatty liver. Electronically signed by: Steven Jackson M.D. 04/20/2019 8:35 PM Dictated: 04/20/192025 Transcribed: 04/20/192025 ECG Additional Comments: The study shows NSR at 67bpm, left axis deviation, QP=144, SJO=647, EHa=777, nonspecific ST changes Code Status & VTE Plan Code Status DNR per discussion with patient and Critical Care Time Critical Care Time: No PG Care Time/CCT Total # of Minutes Spent Total Time Spent with Patient: Total time spent is greater than 50% in coordination of care (as documented) at patient's floor/unit and/or counseling patient: Critical Care Time: No (1) Nausea & vomiting Vomiting Intractability: non-intractable Vomiting type: unspecified Qualified Code(s): R11.2 - Nausea with vomiting, unspecified (2) Hypertension Hypertension type: essential hypertension Qualified Code(s): I10 - Essential (primary) hypertension (3) Rheumatoid arthritis Rheumatoid arthritis location: unspecified site Rheumatoid factor presence: unspecified presence Qualified Code(s): M06.9 - Rheumatoid arthritis, unspecified (4) Diabetes Diabetes mellitus type: type 2 Diabetes mellitus manager intermediate insulin use: without retirement use Diabetes mellitus complication status: without complication Qualified Code(s): E11.9 - Type 2 diabetes mellitus without complications
[2019-04-20] MEDS ORDERED: GLUCAGON FOR INJ 1 MG VIAL SQ PRN (23:08)
[2019-04-20] MEDS ORDERED: GLUCOSE 10 TABS/TUBE PO PRN (23:08)
[2019-04-20] MEDS ORDERED: CARBOHYDRATES FOR HYPOGLYCEMIA PO PRN (23:08)
[2019-04-20] MEDS ORDERED: GLUCOSE 40% GEL 15 GM TUBE PO PRN (23:08)
[2019-04-20] MEDS ORDERED: DEXTROSE 50% 50 ML SYRINGE IV PRN (23:08)
[2019-04-20] MEDS ORDERED: POLYETHYLENE (MIRALAX) 17 GM PACK PO PRN (23:08)
[2019-04-20] MEDS ORDERED: DOCUSATE SODIUM 100 MG CAP PO PRN (23:08)
[2019-04-20] MEDS ORDERED: Nursing to Pharmacy Communication ONE (23:24)
[2019-04-20 23:26] LABS: Magnesium 1.5 mg/dl (1.8-2.4)
[2019-04-21] MEDS: LACTATED RINGER'S 1,000 ML IV SCH ×2 (00:05→08:22)
[2019-04-21] MEDS: POTASSIUM CHLORIDE / WTR 10 MEQ/100 ML PLCT IV SCH ×6 (00:07→17:38)
[2019-04-21] MEDS: FAMOTIDINE 20 MG in SYRINGE 3 ML IV SCH ×3 (00:11→21:44)
[2019-04-21 06:20] LABS: Basophils # (auto) 0.03 K/uL (0-0.2); Basophils % (auto) 0.8 %; Eosinophils # (auto) 0.13 K/uL (0-0.5); Eosinophils % (auto) 3.3 %; Hematocrit (blood only) 35.4 % (42-52); Hemoglobin 12.1 g/dL (14.0-18.0); Lymphocytes # (auto) 1.76 K/uL (1.2-3.4); Lymphocytes % (auto) 44.3 %; Mean Corpuscular Hgb Conc 34.2 g/dL (32-36); Mean Corpuscular Volume 92.9 fL (80-100); Mean Platelet Volume 11.5 fL (7.4-10.4); Monocytes # (auto) 0.31 K/uL (0.11-0.59); Monocytes % (auto) 7.8 %; Neutrophils # (auto) 1.74 K/uL (1.4-6.5); Neutrophils % (auto) 43.8 %; Platelet Count 138 K/uL (130-400); RDW Coefficient of Variation 15.2 % (11.5-14.5); RDW Standard Deviation 50.5 fL (36.4-46.3); Red Blood Count 3.81 M/uL (4.7-6.1); White Blood Count 3.97 K/uL (4.8-10.8)
[2019-04-21] MEDS: INSULIN ASPART 100 UNITS/ML 3 ML PEN SC SCH ×4 (06:26→23:59)
[2019-04-21 06:45] LABS: Estimated Average Glucose 186 mg/dl; Hemoglobin A1C 8.1 % (4.5-5.6)
[2019-04-21 06:46] LABS: BUN Creatinine Ratio 3.8 (10-20); Creatinine Clr Calc Pharmacy 77.3 ml/min; Est GFR (African American) 83.5; Est GFR (Non-African American) 72.1; Potassium 3.2 mmol/L (3.5-5.1)
[2019-04-21] MEDS ORDERED: POTASSIUM CHLORIDE 20 MEQ TABCR PO STA (08:11)
[2019-04-21] MEDS: PROPRANOLOL HCL 20 MG TAB PO SCH ×2 (08:22→08:38)
[2019-04-21] MEDS: ATORVASTATIN 40 MG TAB PO SCH ×2 (08:22→08:38)
[2019-04-21] MEDS: predniSONE 5 MG TAB PO SCH ×2 (08:22→08:38)
[2019-04-21] MEDS: FOLIC ACID 1 MG TAB PO SCH ×2 (08:22→08:38)
[2019-04-21] MEDS ORDERED: PROCHLORPERAZINE 10 MG in SYRINGE 8 ML IV PRN (08:53)
[2019-04-21] MEDS ORDERED: PROCHLORPERAZINE 5 MG in SYRINGE 4 ML IV PRN (08:54)
--- NOTE | 2019-04-21 10:09 | Gastrointestinal Consultation ---
Date of Consultation April 21, 2019 Assessment & Plan (1) Nausea & vomiting: Differentials considered are henry, reflux esophagitis, withdrawal from steroids. 1. EGD today by Dr. Mon 2. Further recommendations to follow EGD. Present on Admission?: Yes (2) Dysphagia: Present on Admission?: Yes Supervising Physician Co-Signing Physician Notes I performed a history and physical examination of the patient, including specifically on physical exam - soft, nontender abdomen. I have discussed the patient's management with Alysha. Please refer to the nurse practitioner's note for the documented findings and plan of care. 63 male patient with GERD admitted with nausea and dysphagia, prior EGD unremarkable. Plan: EGD today GES as OP to r/o Gastroparesis. History of Present Illness Reason for Consultation: Dysphagia Requesting Physician: Roxie Joel Attending Physician: Minnie Larson MD History of Present Illness Mr. Jose Amado is a 63 yr old male pt of Dr. Fadi Bhatt with a hx of DM, HTN, RA and Nascimento's esophagus, on long terms steroids which were dc'ed about 3-4 weeks ago. Symptoms began at the time that the steroids were discontinued and at that time consisted of nausea and difficulty swallowing both liquids and solids. About a week ago he began with vomiting and in the past 3 days is not been able to hold down any foods. He presented to the ED yesterday. On arrival, CT of the abdomen and pelvis with IV but no oral contrast was without any acute abnormalities. No significant abnormalities and lab work-up. Most recent GD 08/04/18 Dr. Worley: - Normal upper third of esophagus, middle third of esophagus and lower third of esophagus. - There is no endoscopic evidence of Nascimento's esophagus. - Z-line regular, 40 cm from the incisors. - Normal stomach. - Normal examined duodenum Path:Gastroesophageal junction mucosa with chronic and focal acute inflammation and reactive epithelial change. Negative for intestinal metaplasia and dysplasia. Allergies Allergy/AdvReac Type Severity Reaction Status Date / Time No Known Allergies Allergy Verified 04/20/19 18:38 Home Medications Home Medications Medication Instructions Recorded Confirmed Type atorvastatin 40 mg PO QAM 08/07/18 04/20/19 History meloxicam 15 mg PO QAM 08/07/18 04/20/19 History propranolol 20 mg PO BID 08/07/18 04/20/19 History folic acid 1 mg tablet 1 mg PO DAILY #90 tab 03/25/19 04/20/19 Rx metformin 1,000 mg tablet 1,000 mg PO BID #180 tab 03/25/19 04/20/19 Rx omeprazole 20 mg capsule,delayed 20 mg PO BID #180 cap 04/01/19 04/20/19 Rx release etanercept 50 mg/mL (0.98 mL) 50 mg SQ WK ml 04/13/19 04/20/19 History subcutaneous syringe ondansetron 8 mg PO Q8H PRN 04/20/19 04/20/19 History Patient History Medical History Central stenosis of spinal canal (Inactive) Sciatica (Inactive) 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 Degenerative disc disease Diabetes mellitus, type 2 History of esophageal stricture S/P DILATION Hyperlipidemia Hypertension Migraine Obesity Rheumatoid arthritis Surgical History History of back surgery History of blepharoplasty History of tooth extraction History of total knee replacement LEFT Family History Mother Family history of diabetes mellitus Hypertension Father Cancer Social History Preferred Language: Upper Sorbian Communication Ability: Effective Visual Impairment: No Limitations Hearing Ability: Normal Beliefs That Will Affect Care: None marital status: Current Living Situation: Spouse current occupational status: employed Feels Safe at Home: Yes Smoking Status: Never smoker Second Hand Exposure: No Hx Alcohol Use: No Hx Substance Use: No Review of Systems Review of Systems: ROS: Gen: +weakness, No fevers Eyes: No eye redness, or pain, no recent vision changes Resp: No SOB, no cough Cardio: No palpitations/irregular beats, no chest pain GI: + nausea/vomiting; + dysphagia; no abdominal pain : Denies pain on urination Skin: No jaundice, itching or new rashes Constitutional: +weakness, weight loss, denies fevers Physical Exam Constitutional: WD/WN, vitals as above Eyes: PERRL, conjunctivae normal, anicteric sclerae ENMT: Mouth: + oral mucosal abnormality (white plagues - suggesive of henry) Throat: uvula midline; no tonsil abnormality Neck: trachea midline, no thyromegaly Respiratory: normal respiratory effort, lungs clear to auscultation Cardiovascular: RRR, no murmur, no edema Gastrointestinal (Abdomen): normal bowel sounds, soft, nontender, no hepatosplenomegaly Skin: no rashes, warm and dry Neurologic: PERRL, EOMI, accommodation nl, no face palsy, no dysarthria Psychiatric: A+Ox3, euthymic affect Results & Data Vital Signs (Past 12 Hours) Vital Signs Temp Pulse Pulse Pulse Resp BP BP 04/21/19 07:44 36.7 C 75 20 117/77 04/20/19 23:40 36.7 C 78 18 135/78 04/20/19 23:30 37.3 C 80 18 127/81 04/20/19 22:32 77 21 110/80 Pulse Ox 04/21/19 07:44 93 04/20/19 23:40 91 04/20/19 23:30 94 04/20/19 22:32 93 Laboratory Results He has mild pancytopenia hemoglobin 12 hematocrit 35 platelets 138. BUN is 4 creatinine is 1.1 potassium is 3.2 and sodium is [address] abd/pelvis with IV, no oral contrast: 1. No acute process within the abdomen or pelvis. 2. Fatty liver. (1) Nausea & vomiting Vomiting Intractability: non-intractable Vomiting type: unspecified Qualified Code(s): R11.2 - Nausea with vomiting, unspecified
[2019-04-21] MEDS: MAGNESIUM SULFATE / D5W 1 GM/100 ML BAG IV SCH ×2 (10:14→11:22)
[2019-04-21] MEDS: HYDROCORTISONE SOD 25 MG in SYRINGE 0 ML IV SCH ×2 (10:14→18:36)
--- NOTE | 2019-04-21 12:31 | Anesthesiology Consultation ---
Date of Service April 21, 2019 Assessment & Plan Chart Review Chart Review: Acceptable Risk for Surgery and Patient NOT seen in Pre Admission Testing Consults Requested none History Surgery Operation Date: 04/21/19 08:30 Proposed Procedures p Esophagogastroduodenoscopy Dr Mon - Stella Mon MD Height/Weight Height: 5 ft 7 in Weight: 94.5 kg Allergies Allergy/AdvReac Type Severity Reaction Status Date / Time No Known Allergies Allergy Verified 04/20/19 18:38 Medications Home Medications Medication Instructions Recorded Confirmed Last Taken atorvastatin 40 mg PO QAM 08/07/18 04/20/19 10/09/18 13:00 meloxicam 15 mg PO QAM 08/07/18 04/20/19 10/09/18 13:00 propranolol 20 mg PO BID 08/07/18 04/20/19 10/09/18 13:00 folic acid 1 mg tablet 1 mg PO DAILY #90 tab 03/25/19 04/20/19 Unknown metformin 1,000 mg tablet 1,000 mg PO BID #180 tab 03/25/19 04/20/19 Unknown omeprazole 20 mg capsule,delayed 20 mg PO BID #180 cap 04/01/19 04/20/19 04/20/19 release AM DOSE etanercept 50 mg/mL (0.98 mL) 50 mg SQ WK ml 04/13/19 04/20/19 04/20/19 subcutaneous syringe ondansetron 8 mg PO Q8H PRN 04/20/19 04/20/19 04/20/19 13:00 Active Medications Generic Name Dose Route Start Last Admin Trade Name Freq PRN Reason Stop Dose Admin Famotidine 20 mg/ Syringe 5 mls @ 2.5 mls/min 04/20/19 23:08 04/21/19 08:28 IV 05/20/19 23:07 2.5 mls/min BID KATIE Administration Lactated Ringer's 1,000 mls @ 125 mls/hr 04/20/19 23:15 04/21/19 08:22 Lr IV 04/21/19 15:14 125 mls/hr .Q8H KATIE Administration Hydrocortisone Sodium 0.5 mls @ 4 mls/min 04/21/19 10:00 04/21/19 10:14 Succinate 25 mg/ Syringe IV 05/21/19 08:44 4 mls/min Q8H KATIE Administration Potassium Chloride 10 meq in 100 mls @ 100 mls/hr 04/21/19 09:00 04/21/19 11:22 K Pete / Wtr IV 04/21/19 12:59 100 mls/hr Q1H KATIE Administration Insulin Aspart 0 units 04/21/19 06:00 04/21/19 06:26 Novolog Flexpen SC 05/21/19 05:59 Not Given Q6 KATIE Ioversol 94 ml 04/20/19 20:07 04/20/19 20:07 Optiray 320 100ml IV 04/24/19 20:06 94 ml ONCE PRN Administration Interaction Checking NPO Date Last Intake of Fluids: 04/21/19 Time Last Intake of Fluids: 08:20 Last Intake of Fluids Comment: sip of water that pt spit back out into basin Past Medical History Medical History Central stenosis of spinal canal (Inactive) Sciatica (Inactive) 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 Degenerative disc disease Diabetes mellitus, type 2 History of esophageal stricture S/P DILATION Hyperlipidemia Hypertension Migraine Obesity Rheumatoid arthritis Past Family History Family History Mother Family history of diabetes mellitus Hypertension Father Cancer Past Surgical History Surgical History History of back surgery History of blepharoplasty History of tooth extraction History of total knee replacement LEFT Social History Smoking Status: Never smoker Do You Dip or Chew Tobacco: No Hx Alcohol Use: No Hx Substance Use: No substance use type: does not use Physical Exam Vital Signs Last Vital Signs Temp 36.7 C 04/21/19 07:44 Pulse 75 04/21/19 07:44 Resp 20 04/21/19 07:44 BP 117/77 04/21/19 07:44 Pulse Ox 93 04/21/19 07:44 Testing Laboratory Results 04/21/19 05:54 04/21/19 05:54 PT 12.6 Seconds (9.0-12.0) H 04/20/19 18:24 INR 1.2 (0.9-1.1) H 04/20/19 18:24 Hemoglobin A1c 8.1 % (4.5-5.6) H 04/21/19 05:54 Urine Color Yellow 04/20/19 20:03 Urine Appearance Clear (Clear) 04/20/19 20:03 Urine pH 5.0 (4.5-7.5) 04/20/19 20:03 Ur Specific [place] 1.018 (1.000-1.030) 04/20/19 20:03 Urine Protein Negative (Negative) 04/20/19 20:03 Urine Glucose (UA) Negative (Negative) 04/20/19 20:03 Urine Ketones Trace (Negative) H 04/20/19 20:03 Urine Nitrite Negative (Negative) 04/20/19 20:03 Ur Leukocyte Esterase Negative (Negative) 04/20/19 20:03 04/21/19 04/21/19 11:50 06:19 POC Glucose 140 H 99
[2019-04-21] MEDS ORDERED: ePHEDrine sulfate 50 MG/ML AMP IV PRN (12:37)
[2019-04-21] MEDS ORDERED: ATROPINE SULFATE 0.1 MG/ML 10ML SYR IV PRN (12:37)
[2019-04-21] MEDS ORDERED: fentaNYL citrate 100 MCG/2 ML VIAL ONE (12:43)
[2019-04-21] MEDS ORDERED: LIDOCAINE HCL 2% 2 ML VIAL/AMP(20MG/ML) INFIL ONE (12:44)
[2019-04-21] MEDS ORDERED: PROPOFOL IV EMULSION 10 MG/ML 20 ML VIAL IV ONE (12:44)
[2019-04-21] MEDS: NYSTATIN SUSP 500,000 U/5 ML UDC PO SCH ×3 (13:03→21:45)
--- NOTE | 2019-04-21 13:10 | Hospitalist Progress Note ---
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 Had follow up EGD on 08/04/18, normal esophagus visualized. - May be related to GERD vs. stricture vs. adrenal insufficiency - Recently tapered off chronic steroids 3 weeks ago; symptoms started immediately after -- will start Hydrocortisone 25 mg IV q8hr (cannot take PO meds) - Pepcid 20 mg IV BID. LR at 125 cc/hr. - GI consulted, plan for EGD today for further evaluation. - NPO; holding PO meds due to inability to tolerate them. (2) Acute dehydration: - Creatinine increased at admission -- likely dehydration. - Continue LR at 125 cc/hr. - Monitor renal function daily. (3) Chronic steroid use: - Previously on chronic steroids, tapered ~3 weeks ago. - Random cortisol level this morning was 0.73. - Restarting steroids to evaluate for improvement -- Hydrocortisone 25 mg IV q8hr. - TSH pending in the AM. (4) Rheumatoid arthritis: - Receives Enbrel qweekly -- last dose on 04/20/19. - Now weaned off steroids/MTX -- restarting steroids as noted above. - Continue Enbrel qweekly; holding Folic acid due to N/V. - Will need to follow up with rheumatology. (5) Hypertension: - Holding propanolol due to NPO status. - BP is stable, will monitor. (6) Diabetes: - Hgb A1C was 7.2 in September 2018. - Holding Metformin while inpt; SSI coverage. (7) High cholesterol: - Continue statin as prescribed. (8) Thrush: - Due to immunocompromised state and recent N/V. - Start Nystatin QID. (9) Prolonged QT interval: - QTc was 505 on EKG at admission -- avoid QT prolonging meds. - Repeat EKG in the morning. (10) Electrolyte abnormality: - K level 3.2 -- ordered K 40 mEq IV. - Mag level 1.5 -- ordered mag sulfate 2 gm IV. (11) DVT prophylaxis: - Holding for procedure. Dispo: Med/surg for N/V -- GI consulted. Supervising Physician Co-Signing Physician Notes PA Supervision Note: I did not personally see or examine the patient today, but I verified all card points of EROS Lowe's assessment and plan with the following exceptions/additions: None Subjective Pt. complains of a dry mouth related to dehydration, limited PO intake. He had a very small BM 2 days ago, is constipated. Complains of ongoing nausea/vomiting -- cannot tolerate any PO intake, including pills or small sips of water. GI consulted, EGD completed today. His was present at bedside, updated her with plan of care. Review of Systems Review of Systems: All systems reviewed & are unremarkable except as noted in HPI & below Constitutional: + fatigue, + weakness and + anorexia; no fever and no chills Respiratory: no cough, no dyspnea and no dyspnea on exertion Cardiovascular: no chest pain, no palpitations and no edema Gastrointestinal: + nausea, + vomiting and + constipation; no abdominal pain and no diarrhea/loose stools Genitourinary: no difficulty urinating Musculoskeletal: no back pain and no joint pain Integumentary: no non-healing lesions Allergy / Immunological: no rash Physical Exam Physical Exam: General: Resting comfortably in no apparent distress HEENT: NC/AT; PERRLA with EOMI; [place] conjunctiva, MMM. No erythema of posterior pharynx Neck: Supple and nontender Cardiac: RRR Lungs: CTA bilaterally Abdomen: Bowel normoactive X 4; Nontender to palpation Extremities: Warm. No edema present Neuro: No focal weakness Skin: No rash Results & Data Vital Signs (Past 12 Hours) Vital Signs Temp Pulse Resp BP Pulse Ox 04/21/19 12:28 36.7 C 76 20 148/84 H 97 04/21/19 07:44 36.7 C 75 20 117/77 93 Laboratory Results 04/21/19 04/21/19 04/21/19 Range/Units 11:50 09:44 06:19 WBC (4.8-10.8) K/uL RBC (4.7-6.1) M/uL Hgb (14.0-18.0) g/dL Hct (42-52) % MCV (80-100) fL MCH (25-34) pg MCHC (32-36) g/dL RDW Std Deviation (36.4-46.3) fL RDW Coeff of Tanvir (11.5-14.5) % Plt Count (130-400) K/uL MPV (7.4-10.4) fL Immature Gran % (Auto) % Neut % (Auto) % Lymph % (Auto) % [place] % (Auto) % Eos % (Auto) % Baso % (Auto) % Immature Gran # (Auto) (0.00-0.02) K/uL Neut # (Auto) (1.4-6.5) K/uL Lymph # (Auto) (1.2-3.4) K/uL [place] # (Auto) (0.11-0.59) K/uL Eos # (Auto) (0-0.5) K/uL Baso # (Auto) (0-0.2) K/uL PT (9.0-12.0) Seconds INR (0.9-1.1) Sodium (136-145) mmol/L Potassium (3.5-5.1) mmol/L Chloride (98-107) mmol/L Carbon Dioxide (21-32) mmol/L Anion Gap (3-11) BUN (7-18) mg/dl Creatinine (0.6-1.4) mg/dl Est Cr Clr Drug Dosing ml/min Est GFR ( Amer) Est GFR (Non-Af Amer) BUN/Creatinine Ratio (10-20) Glucose (70-99) mg/dl POC Glucose 140 H 99 (70-99) Estimat Average Glucose mg/dl Hemoglobin A1c (4.5-5.6) % Calcium (8.5-10.1) mg/dl Phosphorus (2.5-4.9) mg/dl Magnesium (1.8-2.4) mg/dl Total Bilirubin (0.2-1) mg/dl AST (15-37) U/L ALT (12-78) U/L Alkaline Phosphatase (45-117) U/L Troponin I (0-0.045) ng/ml Total Protein (6.4-8.2) gm/dl Albumin (3.4-5.0) gm/dl Globulin (2.5-4.0) gm/dl Albumin/Globulin Ratio (0.9-2) Lipase (73-393) U/L Random Cortisol 0.73 mcg/dl Urine Color Urine Appearance (Clear) Urine pH (4.5-7.5) Ur Specific [place] (1.000-1.030) Urine Protein (Negative) Urine Glucose (UA) (Negative) Urine Ketones (Negative) Urine Blood (Negative) Urine Nitrite (Negative) Urine Bilirubin (Negative) Urine Urobilinogen (Negative) Ur Leukocyte Esterase (Negative) 04/21/19 04/21/19 04/21/19 Range/Units 05:54 05:54 05:54 WBC (4.8-10.8) K/uL RBC (4.7-6.1) M/uL Hgb (14.0-18.0) g/dL Hct (42-52) % MCV (80-100) fL MCH (25-34) pg MCHC (32-36) g/dL RDW Std Deviation (36.4-46.3) fL RDW Coeff of Tanvir (11.5-14.5) % Plt Count (130-400) K/uL MPV (7.4-10.4) fL Immature Gran % (Auto) % Neut % (Auto) % Lymph % (Auto) % [place] % (Auto) % Eos % (Auto) % Baso % (Auto) % Immature Gran # (Auto) (0.00-0.02) K/uL Neut # (Auto) (1.4-6.5) K/uL Lymph # (Auto) (1.2-3.4) K/uL [place] # (Auto) (0.11-0.59) K/uL Eos # (Auto) (0-0.5) K/uL Baso # (Auto) (0-0.2) K/uL PT (9.0-12.0) Seconds INR (0.9-1.1) Sodium 142 (136-145) mmol/L Potassium 3.2 L (3.5-5.1) mmol/L Chloride 108 H (98-107) mmol/L Carbon Dioxide 29 (21-32) mmol/L Anion Gap 5.0 (3-11) BUN 4 L (7-18) mg/dl Creatinine 1.10 D (0.6-1.4) mg/dl Est Cr Clr Drug Dosing 77.3 ml/min Est GFR ( Amer) 83.5 Est GFR (Non-Af Amer) 72.1 BUN/Creatinine Ratio 3.8 L (10-20) Glucose 95 (70-99) mg/dl POC Glucose (70-99) Estimat Average Glucose 186 mg/dl Hemoglobin A1c 8.1 H (4.5-5.6) % Calcium 8.0 L (8.5-10.1) mg/dl Phosphorus (2.5-4.9) mg/dl Magnesium 1.5 L (1.8-2.4) mg/dl Total Bilirubin (0.2-1) mg/dl AST (15-37) U/L ALT (12-78) U/L Alkaline Phosphatase (45-117) U/L Troponin I (0-0.045) ng/ml Total Protein (6.4-8.2) gm/dl Albumin (3.4-5.0) gm/dl Globulin (2.5-4.0) gm/dl Albumin/Globulin Ratio (0.9-2) Lipase (73-393) U/L Random Cortisol mcg/dl Urine Color Urine Appearance (Clear) Urine pH (4.5-7.5) Ur Specific [place] (1.000-1.030) Urine Protein (Negative) Urine Glucose (UA) (Negative) Urine Ketones (Negative) Urine Blood (Negative) Urine Nitrite (Negative) Urine Bilirubin (Negative) Urine Urobilinogen (Negative) Ur Leukocyte Esterase (Negative) 04/21/19 04/20/19 04/20/19 Range/Units 05:54 20:03 18:24 WBC 3.97 L (4.8-10.8) K/uL RBC 3.81 L (4.7-6.1) M/uL Hgb 12.1 L (14.0-18.0) g/dL Hct 35.4 L (42-52) % MCV 92.9 (80-100) fL MCH 31.8 (25-34) pg MCHC 34.2 (32-36) g/dL RDW Std Deviation 50.5 H (36.4-46.3) fL RDW Coeff of Tanvir 15.2 H (11.5-14.5) % Plt Count 138 (130-400) K/uL MPV 11.5 H (7.4-10.4) fL Immature Gran % (Auto) 0.0 % Neut % (Auto) 43.8 % Lymph % (Auto) 44.3 % [place] % (Auto) 7.8 % Eos % (Auto) 3.3 % Baso % (Auto) 0.8 % Immature Gran # (Auto) 0.00 (0.00-0.02) K/uL Neut # (Auto) 1.74 (1.4-6.5) K/uL Lymph # (Auto) 1.76 (1.2-3.4) K/uL [place] # (Auto) 0.31 (0.11-0.59) K/uL Eos # (Auto) 0.13 (0-0.5) K/uL Baso # (Auto) 0.03 (0-0.2) K/uL PT (9.0-12.0) Seconds INR (0.9-1.1) Sodium 141 (136-145) mmol/L Potassium 3.1 L (3.5-5.1) mmol/L Chloride 103 (98-107) mmol/L Carbon Dioxide 28 (21-32) mmol/L Anion Gap 10.0 (3-11) BUN 6 L (7-18) mg/dl Creatinine 1.45 H (0.6-1.4) mg/dl Est Cr Clr Drug Dosing 61.3 ml/min Est GFR ( Amer) 59.8 Est GFR (Non-Af Amer) 51.6 BUN/Creatinine Ratio 4.3 L (10-20) Glucose 126 H (70-99) mg/dl POC Glucose (70-99) Estimat Average Glucose mg/dl Hemoglobin A1c (4.5-5.6) % Calcium 9.0 (8.5-10.1) mg/dl Phosphorus 4.0 (2.5-4.9) mg/dl Magnesium 1.5 L (1.8-2.4) mg/dl Total Bilirubin 1.6 H (0.2-1) mg/dl AST 37 (15-37) U/L ALT 30 (12-78) U/L Alkaline Phosphatase 36 L (45-117) U/L Troponin I < 0.015 (0-0.045) ng/ml Total Protein 6.9 (6.4-8.2) gm/dl Albumin 4.0 (3.4-5.0) gm/dl Globulin 2.9 (2.5-4.0) gm/dl Albumin/Globulin Ratio 1.4 (0.9-2) Lipase 187 (73-393) U/L Random Cortisol mcg/dl Urine Color Yellow Urine Appearance Clear (Clear) Urine pH 5.0 (4.5-7.5) Ur Specific [place] 1.018 (1.000-1.030) Urine Protein Negative (Negative) Urine Glucose (UA) Negative (Negative) Urine Ketones Trace H (Negative) Urine Blood Negative (Negative) Urine Nitrite Negative (Negative) Urine Bilirubin Negative (Negative) Urine Urobilinogen Negative (Negative) Ur Leukocyte Esterase Negative (Negative) 04/20/19 04/20/19 Range/Units 18:24 18:24 WBC 4.28 L (4.8-10.8) K/uL RBC 3.99 L (4.7-6.1) M/uL Hgb 13.0 L (14.0-18.0) g/dL Hct 37.4 L (42-52) % MCV 93.7 (80-100) fL MCH 32.6 (25-34) pg MCHC 34.8 (32-36) g/dL RDW Std Deviation 50.7 H (36.4-46.3) fL RDW Coeff of Tanvir 15.3 H (11.5-14.5) % Plt Count 162 (130-400) K/uL MPV 11.2 H (7.4-10.4) fL Immature Gran % (Auto) 0.0 % Neut % (Auto) 45.9 % Lymph % (Auto) 40.9 % [place] % (Auto) 9.3 % Eos % (Auto) 3.0 % Baso % (Auto) 0.9 % Immature Gran # (Auto) 0.00 (0.00-0.02) K/uL Neut # (Auto) 1.96 (1.4-6.5) K/uL Lymph # (Auto) 1.75 (1.2-3.4) K/uL [place] # (Auto) 0.40 (0.11-0.59) K/uL Eos # (Auto) 0.13 (0-0.5) K/uL Baso # (Auto) 0.04 (0-0.2) K/uL PT 12.6 H (9.0-12.0) Seconds INR 1.2 H (0.9-1.1) Sodium (136-145) mmol/L Potassium (3.5-5.1) mmol/L Chloride (98-107) mmol/L Carbon Dioxide (21-32) mmol/L Anion Gap (3-11) BUN (7-18) mg/dl Creatinine (0.6-1.4) mg/dl Est Cr Clr Drug Dosing ml/min Est GFR ( Amer) Est GFR (Non-Af Amer) BUN/Creatinine Ratio (10-20) Glucose (70-99) mg/dl POC Glucose (70-99) Estimat Average Glucose mg/dl Hemoglobin A1c (4.5-5.6) % Calcium (8.5-10.1) mg/dl Phosphorus (2.5-4.9) mg/dl Magnesium (1.8-2.4) mg/dl Total Bilirubin (0.2-1) mg/dl AST (15-37) U/L ALT (12-78) U/L Alkaline Phosphatase (45-117) U/L Troponin I (0-0.045) ng/ml Total Protein (6.4-8.2) gm/dl Albumin (3.4-5.0) gm/dl Globulin (2.5-4.0) gm/dl Albumin/Globulin Ratio (0.9-2) Lipase (73-393) U/L Random Cortisol mcg/dl Urine Color Urine Appearance (Clear) Urine pH (4.5-7.5) Ur Specific [place] (1.000-1.030) Urine Protein (Negative) Urine Glucose (UA) (Negative) Urine Ketones (Negative) Urine Blood (Negative) Urine Nitrite (Negative) Urine Bilirubin (Negative) Urine Urobilinogen (Negative) Ur Leukocyte Esterase (Negative) PG Care Time/CCT Total # of Minutes Spent Total Time Spent with Patient: Total time spent is greater than 50% in coordination of care (as documented) at patient's floor/unit and/or counseling patient: (1) Rheumatoid arthritis Rheumatoid arthritis location: unspecified site Rheumatoid factor presence: unspecified presence Qualified Code(s): M06.9 - Rheumatoid arthritis, unspec ified (2) Diabetes Diabetes mellitus complication status: without complication Diabetes mellitus nursing home insulin use: without nursing home use Diabetes mellitus type: type 2 Qualified Code(s): E11.9 - Type 2 diabetes mellitus without complications (3) Nausea & vomiting Vomiting Intractability: non-intractable Vomiting type: unspecified Qualified Code(s): R11.2 - Nausea with vomiting, unspecified (4) Hypertension Hypertension type: essential hypertension Qualified Code(s): I10 - Essential (primary) hypertension
--- NOTE | 2019-04-21 13:21 | GI REPORT ---
Patient Name: Jose Amado Procedure Date: 04/21/2019 12:46 PM Date of : 1955 Admit Type: Inpatient Age: 63 Gender: Male Attending MD: Stella Mon MD Procedure: Upper GI endoscopy Providers: Stella Mon MD Referring MD: Minnie Larson Md, Fadi Bhatt Indications: Dysphagia, Nausea Medicines: Monitored Anesthesia Care Complications: No immediate complications. Estimated Blood Loss: Estimated blood loss: none. Procedure: Pre-Anesthesia Assessment: - Prior to the procedure, a History and Physical was performed, and patient medications and allergies were reviewed. The patient is competent. The risks and benefits of the procedure and the sedation options and risks were discussed with the patient. All questions were answered and informed consent was obtained. Patient identification and proposed procedure were verified by the physician and the nurse in the procedure room. Mental Status Examination: alert and oriented. Airway Examination: normal oropharyngeal airway and neck mobility. Respiratory Examination: clear to auscultation. CV Examination: normal. ASA Grade Assessment: III - A patient with severe systemic disease. After reviewing the risks and benefits, the patient was deemed in satisfactory condition to undergo the procedure. The anesthesia plan was to use monitored anesthesia care (MAC). Immediately prior to administration of medications, the patient was re-assessed for adequacy to receive sedatives. The heart rate, respiratory rate, oxygen saturations, blood pressure, adequacy of pulmonary ventilation, and response to care were monitored throughout the procedure. The physical status of the patient was re-assessed after the procedure. After obtaining informed consent, the endoscope was passed under direct vision. Throughout the procedure, the patient's blood pressure, pulse, and oxygen saturations were monitored continuously. The scope was introduced through the mouth, and advanced to the second part of duodenum. The upper GI endoscopy was accomplished without difficulty. The patient tolerated the procedure well. Findings: The Z-line was regular and was found 41 cm from the incisors. No endoscopic abnormality was evident in the esophagus to explain the patient's complaint of dysphagia. It was decided, however, to proceed with dilation of the entire esophagus. A guidewire was placed and the scope was withdrawn. Dilation was performed with a Savary dilator with no resistance at 45 Fr and 54 Fr. Mildly erythematous mucosa was found in the gastric antrum. Biopsies were taken with a cold forceps for Helicobacter pylori testing. Verification of patient identification for the specimen was done by the physician and nurse using the patient's name and date. The duodenal bulb and second portion of the duodenum were normal. Impression: - Z-line regular, 41 cm from the incisors. - No endoscopic esophageal abnormality to explain patient's dysphagia. Esophagus dilated. Dilated. - Erythematous mucosa in the antrum. Biopsied. - Normal duodenal bulb and second portion of the duodenum. Recommendation: - Return patient to [facility] for ongoing care. - Swallow evaluation to r/o oropharyngeal dysphagia. - Schedule a gastric emptying study as OP. - Schedule esophageal manometry as OP. - Consider stopping Metformin. Stella Mon MD 04/21/2019 1:20:48 PM This report has been signed electronically. Note Initiated On: 04/21/2019 12:46 PM Number of Addenda: 0 I attest to the content of the Intraoperative Record and orders documented therein, exceptions below {[id number]}
--- NOTE | 2019-04-21 13:38 | Anesthesiology Progress Note ---
Date of Service April 21, 2019 Anesthesia Post Procedure Vital Signs Vital Signs: Temp Pulse Pulse Pulse Pulse Resp BP 04/21/19 13:15 66 16 04/21/19 12:28 36.7 C 76 20 04/21/19 07:44 36.7 C 75 20 04/20/19 23:40 36.7 C 78 18 04/20/19 23:30 37.3 C 80 18 04/20/19 22:32 77 21 110/80 04/20/19 20:50 77 24 04/20/19 19:00 66 18 131/71 04/20/19 18:53 70 17 123/72 04/20/19 18:48 72 19 211/140 H 04/20/19 18:31 78 22 04/20/19 18:22 73 20 164/99 H 04/20/19 17:38 72 20 04/20/19 16:32 36.9 C 78 20 122/80 BP BP Pulse Ox 04/21/19 13:15 91/58 L 93 04/21/19 12:28 148/84 H 97 04/21/19 07:44 117/77 93 04/20/19 23:40 135/78 91 04/20/19 23:30 127/81 94 04/20/19 22:32 93 04/20/19 20:50 117/76 93 04/20/19 19:00 93 04/20/19 18:53 04/20/19 18:48 04/20/19 18:31 04/20/19 18:22 04/20/19 17:38 97 04/20/19 16:32 95 Pain Intensity Abdomen: Pain Intensity: 4 Transfer of Care Handoff Completed per policy Notes Mental Status: alert / awake / arousable Patient Amnestic to Procedure: Yes Nausea / Vomiting: adequately controlled Pain: adequately controlled Airway Patency, RR, SpO2: stable & adequate BP & HR: stable & adequate Hydration State: stable & adequate Anesthetic Complications: no major complications apparent and Pt Satisfied with anesthetic care
[2019-04-21 17:47] LABS: BUN Creatinine Ratio 3.8 (10-20); Calcium 8.6 mg/dl (8.5-10.1); Creatinine Clr Calc Pharmacy 98.8 ml/min; Est GFR (African American) 108.5; Est GFR (Non-African American) 93.6; Potassium 3.7 mmol/L (3.5-5.1)
--- NOTE | 2019-04-21 17:57 | Progress Note ---
Date of Service April 21, 2019 Subjective Patient underwent EGD today with empiric dilation. Plan: - Swallow evaluation to r/o oropharyngeal dysphagia. - Schedule a gastric emptying study as OP. - Schedule esophageal manometry as OP. - Consider stopping Metformin. - Trial of Reglan if needed. - Recall GI if any questions or concerns. Results & Data Vital Signs (Past 12 Hours) Vital Signs Temp Pulse Pulse Resp BP BP Pulse Ox 04/21/19 15:00 37.1 C 66 18 145/93 H 96 04/21/19 14:45 36.8 C 69 18 150/84 H 91 04/21/19 14:30 37.1 C 71 20 160/101 H 94 04/21/19 14:15 37.1 C 76 20 146/90 H 91 04/21/19 13:46 71 14 125/78 95 04/21/19 13:30 67 16 123/68 98 04/21/19 13:15 66 16 91/58 L 93 04/21/19 12:28 36.7 C 76 20 148/84 H 97 04/21/19 07:44 36.7 C 75 20 117/77 93
[2019-04-22] MEDS: HYDROCORTISONE SOD 25 MG in SYRINGE 0 ML IV SCH ×3 (01:48→18:39)
[2019-04-22 05:47] LABS: Hemoglobin 11.4 g/dL (14.0-18.0); Mean Corpuscular Hgb Conc 34.5 g/dL (32-36); Mean Corpuscular Volume 93.8 fL (80-100); Mean Platelet Volume 11.4 fL (7.4-10.4); Platelet Count 132 K/uL (130-400); RDW Standard Deviation 50.5 fL (36.4-46.3); Red Blood Count 3.52 M/uL (4.7-6.1); White Blood Count 5.01 K/uL (4.8-10.8)
[2019-04-22 06:15] LABS: BUN Creatinine Ratio 3.1 (10-20); Magnesium 1.7 mg/dl (1.8-2.4); Potassium 3.5 mmol/L (3.5-5.1)
[2019-04-22] MEDS: FAMOTIDINE 20 MG in SYRINGE 3 ML IV SCH (08:19)
[2019-04-22] MEDS: NYSTATIN SUSP 500,000 U/5 ML UDC PO SCH ×4 (08:19→20:47)
[2019-04-22] MEDS: INSULIN ASPART 100 UNITS/ML 3 ML PEN SC SCH ×4 (08:23→20:49)
[2019-04-22] MEDS ORDERED: POTASSIUM CHLORIDE 20 MEQ TABCR PO ONE (08:38)
[2019-04-22] MEDS ORDERED: HYDROCORTISONE SOD 12.5 MG in SYRINGE 0 ML IV SCH (10:00)
[2019-04-22] MEDS: MELOXICAM 7.5 MG TAB PO SCH (10:40)
[2019-04-22] MEDS: PROPRANOLOL HCL 20 MG TAB PO SCH ×2 (10:40→20:47)
[2019-04-22] MEDS: ATORVASTATIN 40 MG TAB PO SCH (10:40)
[2019-04-22] MEDS: POLYETHYLENE (MIRALAX) 17 GM PACK PO SCH (10:40)
[2019-04-22] MEDS: DOCUSATE SODIUM/SENNA 50/8.6MG TAB PO SCH ×2 (10:40→20:47)
[2019-04-22] MEDS: FOLIC ACID 1 MG TAB PO SCH (10:41)
[2019-04-22] MEDS: PANTOprazole 40 MG TAB PO SCH (10:41)
[2019-04-22] MEDS: MAGNESIUM SULFATE / D5W 1 GM/100 ML BAG IV SCH ×2 (10:43→11:54)
[2019-04-22] MEDS ORDERED: METOCLOPRAMIDE HCL INJ 5 MG/ML 2 ML VIAL IV SCH (11:00)
--- NOTE | 2019-04-22 11:12 | Fluoroscopy Report ---
MODIFIED BARIUM SWALLOW CLINICAL HISTORY: Dysphagia/nausea COMPARISON STUDY: None. FLUOROSCOPY TIME: 2 minutes. TECHNIQUE: A modified barium swallow was performed in conjunction with Speech Pathology. The patient ingested varying consistencies of barium containing material. Video fluoroscopy was performed. FINDINGS: No aspiration is identified within liquids, nectar thick liquids, pudding or crackers with paste. Epiglottic inversion is normal. Laryngeal elevation is normal. There is mild esophageal dysmot ility. IMPRESSION: 1. Intact swallowing mechanism. No tracheal aspiration. 2. Mild esophageal dysmotility. 3. Full recommendations by speech pathology to follow. Electronically signed by: Steven Jackson M.D. 04/22/2019 11:11 AM
--- NOTE | 2019-04-22 12:50 | Hospitalist Progress Note ---
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 Had follow up EGD on 08/04/18, normal esophagus visualized. - May be related to GERD vs. stricture vs. steroid withdrawal syndrome. - Recently tapered off chronic steroids 3 weeks ago; symptoms started immediately after -- will start Hydrocortisone 25 mg IV q8hr (cannot take PO meds) - Pepcid 20 mg IV BID. LR at 125 cc/hr. - GI consulted, plan for EGD today for further evaluation. - NPO; holding PO meds due to inability to tolerate them. (2) Acute dehydration: - Creatinine increased at admission -- likely dehydration. - Continue LR at 125 cc/hr. - Monitor renal function daily. (3) Chronic steroid use: - Previously on chronic steroids, tapered ~3 weeks ago. - Random cortisol level this morning was 0.73. - Restarting steroids to evaluate for improvement -- Hydrocortisone 25 mg IV q8hr. - TSH pending in the AM. (4) Rheumatoid arthritis: - Receives Enbrel qweekly -- last dose on 04/20/19. - Now weaned off steroids/MTX -- restarting steroids as noted above. - Continue Enbrel qweekly; holding Folic acid due to N/V. - Will need to follow up with rheumatology. (5) Hypertension: - Holding propanolol due to NPO status. - BP is stable, will monitor. (6) Diabetes: - Hgb A1C was 7.2 in September 2018. - Holding Metformin while inpt; SSI coverage. (7) High cholesterol: - Continue statin as prescribed. (8) Thrush: - Due to immunocompromised state and recent N/V. - Start Nystatin QID. (9) Prolonged QT interval: - QTc was 505 on EKG at admission -- avoid QT prolonging meds. - Repeat EKG in the morning. (10) Electrolyte abnormality: - K level 3.2 -- ordered K 40 mEq IV. - Mag level 1.5 -- ordered mag sulfate 2 gm IV. (11) DVT prophylaxis: - Holding for procedure. Dispo: Med/surg for N/V -- GI consulted. Subjective Pt. is doing well overall with exception of hiccups. He denies pain in ankle, chest pain, SOB, urinary retention. Results & Data Vital Signs (Past 12 Hours) Vital Signs Temp Pulse Resp BP Pulse Ox 04/22/19 07:37 36.6 C 71 21 117/75 95 PG Care Time/CCT Total # of Minutes Spent Total Time Spent with Patient: Total time spent is greater than 50% in coordination of care (as documented) at patient's floor/unit and/or counseling patient: (1) Nausea & vomiting Vomiting Intractability: non-intractable Vomiting type: unspecified Qu alified Code(s): R11.2 - Nausea with vomiting, unspecified (2) Rheumatoid arthritis Rheumatoid arthritis location: unspecified site Rheumatoid factor presence: unspecified presence Qualified Code(s): M06.9 - Rheumatoid arthritis, unspecified (3) Hypertension Hypertension type: essential hypertension Qualified Code(s): I10 - Essential (primary) hypertension (4) Diabetes Diabetes mellitus type: type 2 Diabetes mellitus fpc insulin use: without fpc use Diabetes mellitus complication status: without complication Qualified Code(s): E11.9 - Type 2 diabetes mellitus without complications
--- NOTE | 2019-04-22 15:08 | Hospitalist Progress Note ---
Date of Service April 22, 2019 Assessment & Plan (1) Nausea & vomiting: - Presented with nausea and vomiting for 3 week course. 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 Had follow up EGD on 08/04/18, normal esophagus visualized. - May be related to stricture vs. adrenal insufficiency vs. diabetic gastroparesis. - Recently tapered off chronic steroids 3 weeks ago; symptoms started immediately after -- continue IV steroids q8hr, start Pred 5 mg daily. - GI consulted, s/p EGD on 04/21 with empiric dilation. No acute findings noted with exception of ?gastroparesis. - Will need outpatient gastric emptying study and esophageal manometry. - CLD -- advance to moist diet for breakfast on 04/23 per speech therapy recs (did complete video swallow study this morning) - Continue PPI qAM. (2) Acute dehydration: - Creatinine increased at admission -- likely dehydration. - Renal function currently at baseline. (3) Chronic steroid use: - Previously on chronic steroids, tapered ~3 weeks ago. Adrenal insufficiency was likely leading to (at least partially) nausea/vomiting. - Random cortisol level was 0.73. - Started Hydrocortisone 25 mg IV q8hr with significant improvement in symptoms; will also start Pred 5 mg daily today. Pt. will need to f/u with oven equipment repairer to discuss steroid use in the future. (4) Rheumatoid arthritis: - Receives Enbrel qweekly -- last dose on 04/20/19. - Weaned off steroids/MTX -- restarted steroids as noted above. - Continue Enbrel qweekly; continue folic acid 1 mg daily. - Will need to follow up with rheumatology. (5) Constipation: - May be related to gastroparesis (see above) vs. other. - Senokot S BID with Miralax daily scheduled. - Will need additional agent if no improvement. (6) Hypertension: - Continue propanolol as prescribed. (7) Diabetes: - Hgb A1C is 8.1 (previously 7.2) - Holding Metformin as inpt -- plan to continue this med at discharge as medication was not likely the cause of N/V. - SSI coverage with gluc checks ac/hs. - tobacco educator consulted and glucometer provided; will need One Touch verio test strips and delica lancets at discharge. - F/u with Dr. Bhatt to discuss diabetic management. (8) High cholesterol: - Continue statin as prescribed. (9) Thrush: - Due to immunocompromised state and recent N/V. - Nystatin QID. (10) Prolonged QT interval: - QTc was 505 on EKG at admission -- avoid QT prolonging meds. - Repeat EKG showed improvement in QTc. (11) Electrolyte abnormality: - K level 3.5 - ordered K 20 mEq PO due to limited PO intake. - Mag level 1.7 -- ordered mag sulfate 2 gm IV. (12) DVT prophylaxis: - Lovenox daily. Dispo: Med/surg for treatment of N/V -- discharge likely on 04/23/19. Will need close follow up with GI. Supervising Physician Co-Signing Physician Notes PA Supervision Note: I did not personally see or examine the patient today, but I verified all card points of EROS Lowe's assessment and plan with the following exceptions/additions: None Subjective Pt. is feeling well overall -- he has not had any further episodes of nausea since admission. Is tolerating diet -- ate both dinner and breakfast this morning. He did have slight nausea after drinking water from plastic cup -- was able to drink bottled water without difficulty. He took all PO meds this morning. Has not had a BM -- currently receiving bowel regimen. Did well with swallow study; will need outpt GI studies as well to evaluate for gastroparesis. Discharge likely on 04/23/19 if he remains asymptomatic. Review of Systems Review of Systems: All systems reviewed & are unremarkable except as noted in HPI & below Constitutional: no fever, no chills, no fatigue, no weakness and no anorexia Respiratory: no cough, no dyspnea and no dyspnea on exertion Cardiovascular: no chest pain, no palpitations and no edema Gastrointestinal: + constipation; no abdominal pain, no nausea and no vomiting Genitourinary: no difficulty urinating Musculoskeletal: no back pain and no joint pain Integumentary: no non-healing lesions Allergy / Immunological: no rash Physical Exam Physical Exam: General: Resting comfortably in no apparent distress HEENT: NC/AT; PERRLA with EOMI; [place] conjunctiva, MMM. No erythema of posterior pharynx Neck: Supple and nontender Cardiac: RRR Lungs: CTA bilaterally Abdomen: Bowel normoactive X 4; Nontender to palpation Extremities: Warm. No edema present Neuro: No focal weakness Skin: No rash Results & Data Vital Signs (Past 12 Hours) Vital Signs Temp Pulse Resp BP Pulse Ox 04/22/19 07:37 36.6 C 71 21 117/75 95 Laboratory Results 04/22/19 04/22/19 04/22/19 Range/Units 11:48 07:51 05:29 WBC (4.8-10.8) K/uL RBC (4.7-6.1) M/uL Hgb (14.0-18.0) g/dL Hct (42-52) % MCV (80-100) fL MCH (25-34) pg MCHC (32-36) g/dL RDW Std Deviation (36.4-46.3) fL RDW Coeff of Tanvir (11.5-14.5) % Plt Count (130-400) K/uL MPV (7.4-10.4) fL Sodium 142 (136-145) mmol/L Potassium 3.5 (3.5-5.1) mmol/L Chloride 108 H (98-107) mmol/L Carbon Dioxide 26 (21-32) mmol/L Anion Gap 8.0 (3-11) BUN 3 L (7-18) mg/dl Creatinine 0.85 (0.6-1.4) mg/dl Est Cr Clr Drug Dosing 100.0 ml/min Est GFR ( Amer) 109.0 Est GFR (Non-Af Amer) 94.0 BUN/Creatinine Ratio 3.1 L (10-20) Glucose 168 H (70-99) mg/dl POC Glucose 233 H 178 H (70-99) Calcium 8.0 L (8.5-10.1) mg/dl Magnesium 1.7 L (1.8-2.4) mg/dl TSH 1.380 (0.300-4.500) uIu/ml 04/22/19 04/21/19 04/21/19 Range/Units 05:29 23:57 20:57 WBC 5.01 (4.8-10.8) K/uL RBC 3.52 L (4.7-6.1) M/uL Hgb 11.4 L (14.0-18.0) g/dL Hct 33.0 L (42-52) % MCV 93.8 (80-100) fL MCH 32.4 (25-34) pg MCHC 34.5 (32-36) g/dL RDW Std Deviation 50.5 H (36.4-46.3) fL RDW Coeff of Tanvir 15.0 H (11.5-14.5) % Plt Count 132 (130-400) K/uL MPV 11.4 H (7.4-10.4) fL Sodium (136-145) mmol/L Potassium (3.5-5.1) mmol/L Chloride (98-107) mmol/L Carbon Dioxide (21-32) mmol/L Anion Gap (3-11) BUN (7-18) mg/dl Creatinine (0.6-1.4) mg/dl Est Cr Clr Drug Dosing ml/min Est GFR ( Amer) Est GFR (Non-Af Amer) BUN/Creatinine Ratio (10-20) Glucose (70-99) mg/dl POC Glucose 166 H 168 H (70-99) Calcium (8.5-10.1) mg/dl Magnesium (1.8-2.4) mg/dl TSH (0.300-4.500) uIu/ml 04/21/19 04/21/19 Range/Units 18:48 17:18 WBC (4.8-10.8) K/uL RBC (4.7-6.1) M/uL Hgb (14.0-18.0) g/dL Hct (42-52) % MCV (80-100) fL MCH (25-34) pg MCHC (32-36) g/dL RDW Std Deviation (36.4-46.3) fL RDW Coeff of Tanvir (11.5-14.5) % Plt Count (130-400) K/uL MPV (7.4-10.4) fL Sodium 142 (136-145) mmol/L Potassium 3.7 D (3.5-5.1) mmol/L Chloride 108 H (98-107) mmol/L Carbon Dioxide 24 (21-32) mmol/L Anion Gap 10.0 (3-11) BUN 3 L (7-18) mg/dl Creatinine 0.86 (0.6-1.4) mg/dl Est Cr Clr Drug Dosing 98.8 ml/min Est GFR ( Amer) 108.5 Est GFR (Non-Af Amer) 93.6 BUN/Creatinine Ratio 3.8 L (10-20) Glucose 139 H (70-99) mg/dl POC Glucose 174 H (70-99) Calcium 8.6 (8.5-10.1) mg/dl Magnesium (1.8-2.4) mg/dl TSH (0.300-4.500) uIu/ml PG Care Time/CCT Total # of Minutes Spent Total Time Spent with Patient: Total time spent is greater than 50% in coordination of care (as documented) at patient's floor/unit and/or counseling patient: (1) Rheumatoid arthritis Rheumatoid arthritis location: unspecified site Rheumatoid factor presence: unspecified presence Qualified Code(s): M06.9 - Rheumatoid arthritis, unspecified (2) Diabetes Diabetes mellitus complication status: without complication Diabetes mellitus exterminator helper termite insulin use: without usp use Diabetes mellitus type: type 2 Qualified Code(s): E11.9 - Type 2 diabetes mellitus without complications (3) Nausea & vomiting Vomiting Intractability: non-intractable Vomiting type: unspecified Qualified Code(s): R11.2 - Nausea with vomiting, unspecified (4) Hypertension Hypertension type: essential hypertension Qualified Code(s): I10 - Essential (primary) hypertension
[2019-04-22] MEDS: ENOXAPARIN INJ 40 MG/0.4 ML SYR SQ SCH (16:41)
[2019-04-22] MEDS: predniSONE 5 MG TAB PO SCH (16:41)
[2019-04-23] MEDS: HYDROCORTISONE SOD 25 MG in SYRINGE 0 ML IV SCH ×3 (02:15→12:28)
[2019-04-23 07:03] LABS: Hematocrit (blood only) 33.8 % (42-52); Hemoglobin 11.8 g/dL (14.0-18.0); Mean Corpuscular Hgb Conc 34.9 g/dL (32-36); Mean Corpuscular Volume 93.4 fL (80-100); Mean Platelet Volume 11.5 fL (7.4-10.4); Platelet Count 146 K/uL (130-400); RDW Coefficient of Variation 14.9 % (11.5-14.5); RDW Standard Deviation 50.1 fL (36.4-46.3); Red Blood Count 3.62 M/uL (4.7-6.1); White Blood Count 6.71 K/uL (4.8-10.8)
[2019-04-23 07:41] LABS: BUN Creatinine Ratio 4.1 (10-20); Calcium 8.5 mg/dl (8.5-10.1); Creatinine Clr Calc Pharmacy 86.7 ml/min; Est GFR (African American) 96.1; Est GFR (Non-African American) 82.9; Magnesium 1.9 mg/dl (1.8-2.4); Potassium 3.5 mmol/L (3.5-5.1)
[2019-04-23] MEDS: INSULIN ASPART 100 UNITS/ML 3 ML PEN SC SCH ×2 (09:34→12:31)
[2019-04-23] MEDS: FOLIC ACID 1 MG TAB PO SCH (09:35)
[2019-04-23] MEDS: PROPRANOLOL HCL 20 MG TAB PO SCH (09:36)
[2019-04-23] MEDS: ATORVASTATIN 40 MG TAB PO SCH (09:36)
[2019-04-23] MEDS: ENOXAPARIN INJ 40 MG/0.4 ML SYR SQ SCH (09:38)
[2019-04-23] MEDS: POLYETHYLENE (MIRALAX) 17 GM PACK PO SCH (09:39)
[2019-04-23] MEDS: MELOXICAM 7.5 MG TAB PO SCH (09:39)
[2019-04-23] MEDS: DOCUSATE SODIUM/SENNA 50/8.6MG TAB PO SCH (09:40)
[2019-04-23] MEDS: PANTOprazole 40 MG TAB PO SCH (09:40)
[2019-04-23] MEDS: predniSONE 5 MG TAB PO SCH (09:40)
[2019-04-23] MEDS: NYSTATIN SUSP 500,000 U/5 ML UDC PO SCH ×2 (09:40→13:08)
[2019-04-23] MEDS ORDERED: FUROSEMIDE 20 MG TAB PO ONE (12:40)
--- NOTE | 2019-04-23 13:04 | Discharge Summary ---
Date of Service April 23, 2019 Admission HPI Per Admitting Provider Jose Amado is a 63yo C male with history of DM, HTN, RA and Nascimento's esophagus s/p dilation presenting with post-prandial nausea and vomiting as well as weakness, fatigue and malaise. Patient with history of RA for which he was taking Prednisone for approximately 3 years. He has since been tapered off - last dose of Prednisone was approximately 3 weeks ago. Patient began feeling unwell shortly after steroids were stopped. He developed nausea, watery diarrhea and post-prandial vomiting 3 weeks ago followed by weakness/fatigue and lethargy appx 2 weeks ago. He has had worsening nausea and dry heaves as well as poor appetite for the last 3-4 days. He reports food getting stuck in the substernal region with vomiting of liquid and mucus 10 minutes after eating. No hematemesis/coffee ground emesis. He has had constipation - last BM yesterday, small/hard stool. Mild lower abdominal pain. He has been taking Zofran frequently at home for nausea. Denies chest pain, palpitations, SOB. No urinary complaints. No fevers/chills. No additional complaints at this time. ER Course: Zofran, Morphine, NSS x 2 liters Admission Exam Per Admitting Provider General: patient resting comfortably, NAD, non-toxic in appearance, AA&O x 4 Skin: warm, dry, intact, no rashes or lesions HEENT: NC/AT, PERRL, EOMI, anicteric sclera, conjunctiva without injection, external ear normal to inspection and nontender, nares patent, DRY cracked lips and mucus membranes, adentulous, no oropharyngeal lesions, neck supple, trachea midline, no LAD, no thyromegaly, no JVD Heart: +S1/S2, regular, no m/r/g Lungs: equal air entry bilaterally, no rales/rhonchi/wheezes Abd: +BS, soft, NT/ND, no masses/organomegaly/ascites Ext: warm, 2+ pulses in UE/LE bilaterally, +digital clubbing in fingers, + trace pitting edema of bilateral LEs Neuro: nonfocal, patient AA&O x 4, speech intact, no facial droop, moving all extremities on command with equal strength mildly diminished 4/5 Principal Diagnosis Nausea and Vomiting, Adrenal Insufficiency Discharge Exam General: Resting comfortably in no apparent distress HEENT: NC/AT; PERRLA with EOMI; [place] conjunctiva, MMM. No erythema of posterior pharynx Neck: Supple and nontender Cardiac: RRR Lungs: CTA bilaterally Abdomen: Bowel normoactive X 4; Nontender to palpation Extremities: Warm. No edema present Neuro: No focal weakness Skin: No rash Discharge Data Allergies Allergy/AdvReac Type Severity Reaction Status Date / Time No Known Allergies Allergy Verified 04/20/19 18:38 Consultations 04/20/19 21:04 ED Decision to Admit Stat 04/20/19 23:08 Consult Gastroenterology Routine Procedures Performed Operation Date: 04/21/19 08:30 Actual Procedures p EGD Biopsy Dilatation - Stella Mon MD Ordered Studies 04/20/19 17:38 CT abd pelvis IV con only Stat CXR 04/22/19 10:00 FL video swallow Routine Hospital Course (1) Nausea & vomiting: Presented with nausea and vomiting for 3 week course. 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 Had follow up EGD on 08/04/18, normal esophagus visualized. May be related to stricture vs. adrenal insufficiency vs. diabetic gastroparesis. Recently tapered off chronic steroids 3 weeks ago; symptoms started immediately after -- started IV steroids at admission & Pred 5 mg daily on 04/22/19. Will continue Pred 5 mg daily at home as symptoms completely resolved after restarting IV/PO steroids. GI consulted, s/p EGD on 04/21 with empiric dilation. No acute findings noted with exception of ?gastroparesis. F/u with GI scheduled in April for gastric emptying study and esophageal manometry. Video swallow study completed on 04/22, tolerating diet. Discharged to home on 04/23/19. Symptoms were resolved, tolerating diet and drinking fluids. (2) Acute dehydration: Creatinine increased at admission -- likely dehydration. Now improved back to baseline -- did have UE edema due to IV fluids, prescribed Lasix 20 mg PO daily for 3 days. (3) Chronic steroid use: Previously on chronic steroids, tapered ~3 weeks ago. Adrenal insufficiency was likely leading to (at least partially) nausea/vomiting. Random cortisol level was 0.73. Started Hydrocortisone 25 mg IV q8hr with significant improvement in symptoms; also started Pred 5 mg daily on 04/22/19. F/u with Rheumatology scheduled on 05/07/19. Continue Pred 5 mg daily until follow up appt. (4) Rheumatoid arthritis: Receives Enbrel qweekly -- last dose on 04/20/19. Weaned off steroids/MTX -- restarted steroids as noted above. Continue Enbrel qweekly; continue folic acid 1 mg daily. F/u rheumatology. (5) Hypertension: Continue propanolol as prescribed. (6) Diabetes: Hgb A1C is 8.1 (previously 7.2) Held Metformin as inpt -- plan to continue this med at discharge as medication was not likely the cause of N/V. SSI coverage with gluc checks ac/hs as inpt. para educator consulted and glucometer provided; One Touch verio test strips and delica lancets prescribed at discharge. F/u with Dr. Bhatt scheduled on 04/28/19. (7) High cholesterol: Continue statin as prescribed. (8) Thrush: Due to immunocompromised state and recent N/V. Nystatin QID - will complete course at discharge. (9) Prolonged QT interval: QTc was 505 on EKG at admission -- avoid QT prolonging meds. Repeat EKG showed improvement in QTc. (10) Electrolyte abnormality: Replaced as needed. (11) DVT prophylaxis: Lovenox daily. Discharged to home on 04/23/19. (12) Constipation: - May be related to gastroparesis (see above) vs. other. - Senokot S BID with Miralax daily scheduled. - Will need additional agent if no improvement. Total Time Total Time Spent Total Time Spent (In Minutes): >30 minutes Total Time Includes: Examination of the Patient, Discharge Planning, Medication Reconciliation, Communication With Other Providers and Other Discharge Plan Discharge Items Patient Disposition: Home - Self-Care Reason For Visit: DYSPHAGIA Discharge Diagnosis: Nausea/Vomiting, Adrenal Insufficiency Condition: Good Discharge Goals: Improve disease control, Improve function, Increase independence and Improve nutritional status Activity: As commented below Exercise/Sports: Gradually increase as tolerated Non-emergency contact: Primary Care Provider Call non-emergency contact if: you have any medication questions, your symptoms worsen, your pain is not controlled, your pain is worsening, your pain is unusual for you, your pain is concerning for you and you have a fever Follow-up/Referrals: Fadi Bhatt MD [Primary Care Provider] - 04/28/19 11:30 am (Please, follow up at Dr. Bhatt's office with his associate, Naz MUNOZ, on SaturdayApril 28 at 11:30 am. *If you need to change this appointment, call the office at [phone].) Jaqui Cordero PA-C [Outside Practitioners] - 05/07/19 8:00 am (Please, follow up at [facility] with Jaqui Cordero PA-C on May 07 at 8:00 am. *The office is located at [address] [place] [address] in [place]. If you need to change this appointment, call the office at [phone].) Carmen Vargas [Nurse Practitioner] - 05/20/19 9:45 am (Please, follow up at [facility] with Carmen MUNOZ on SaturdayMay 20 at 9:45 am. *The office is located in [facility]. If you need to change this appointment, call the office at [phone].) Diet: Regular Diet Texture: Mechanical soft (ground) Addtl Provider Instructions: 1. Nausea and Vomiting * Symptoms are likely multi-factorial -- related to adrenal insufficiency (low steroid levels) vs. esophageal stricture vs. diabetic gastroparesis. * Please continue Prednisone 5 mg daily at home x 1 week, then decrease to 2.5mg daily until you see Dr. Camacho; you will need to follow up with rheumatology on 05/07/19. * Please follow up with GI on 05/20/19 to discuss completing outpatient studies for evaluation of diabetic gastroparesis. * Continue a moist, bite sized diet as tolerated; drink plenty of fluids to avoid dehydration. 2. Rheumatoid Arthritis * Continue Enbrel weekly. * Please take Prednisone as above - follow up with air conditioning equipment mechanic on 05/07/19 to discuss steroid dose/taper. 3. Constipation * Please take a bowel regimen at home to avoid constipation -- Colace twice daily scheduled with Miralax daily as needed. 4. Diabetes Mellitus * Hemoglobin A1C was 8.1 during this admission. * Please resume home Metformin at discharge. * Glucometer was provided to monitor blood sugar levels -- please monitor levels with meals and at bedtime. Record all readings and bring to your next appointment. * Prescription for One Touch verio test strips and delica lancets were sent to your pharmacy. * Continue carbohydrate consistent diet. * Please follow up with Dr. Bhatt to discuss diabetic management on 04/28/19. 5. Thrush * Please continue Nystatin swish and swallow to complete a 7 day course. Prescriptions: New polyethylene glycol 3350 [Miralax] 17 gram Powder In Packet 17 g PO DAILY PRN (Reason: constipation) Qty: 1 RF: 0 pantoprazole 40 mg Tablet,Delayed Release (Dr/Ec) 40 mg PO QAM 30 Days Qty: 30 RF: 0 prednisone 5 mg Tablet 5 mg PO DAILY 30 Days Qty: 30 RF: 1 furosemide [Lasix] 20 mg tablet 20 mg PO DAILY Qty: 3 RF: 0 Continued folic acid 1 mg tablet 1 mg PO DAILY Qty: 90 RF: 1 metformin 1,000 mg tablet 1,000 mg PO BID Qty: 180 RF: 1 omeprazole 20 mg capsule,delayed release(DR/EC) 20 mg PO BID Qty: 180 RF: 3 Enbrel 50 mg/mL (0.98 mL) syringe 50 mg SQ WK RF: 0 atorvastatin 40 mg Tablet 40 mg PO QAM RF: 0 meloxicam 15 mg Tablet 15 mg PO QAM RF: 0 propranolol 20 mg Tablet 20 mg PO BID RF: 0 Discontinued ondansetron 8 mg tablet,disintegrating 8 mg PO Q8H PRN (Reason: Nausea) RF: 0 No Action methotrexate sodium 2.5 mg tablet 2.5 mg PO DAILY Qty: 30 RF: 2 Stand-Alone Forms: [facility] [employer] [facility]/Other Patient Handouts: Blood Sugar Check, Diabetes Type 2 Oral Meds, Diabetes Healthy Meals, Blood Sugar Manage Exercise, Diabetes Manage A1C Test Discharge Orders: Discharge Order (Routine); Ordered 04/23/19 Ordered By: Minnie Larson Admission Data Admit Date/Time: 04/22/19 08:37 Attending Provider: Minnie Larson Admit Provider: Roxie Joel Primary Care Provider: Fadi Bhatt Other Providers: Roxie Joel ; Fadi Worley Service: Medical Other Interventions: Discharge Summary Assessment (RN) Last Done: 04/23/19 14:19 Pending Studies at Discharge: No DC Date/Time DO NOT enter until pt leaves facility: 04/23/19 14:40 Supervising Physician Co-Signing Physician Notes PA Supervision Note: I personally saw and examined the patient. I verified all card points and agree with EROS Lowe with the following exceptions and/or additions: Pt significantly improved with his N/V being resolved since restarting steroids. N/V and severe fatigue likely secondary to secondary adrenal insufficiency. Plan to restart low dose prednisone and taper down with a slower taper over a few months. Has some extremity edema, plan for gentle diuresis over the next 3 days Follow closely with PCP Vitals reviewed NAD RRR no mGR CTAB no wcr, breathing unlabored 1+ pitting edema ankles, feet, hands
== END 2019-04-23 14:40 | disposition home or self-care (01) | DRG 392 ==
LOC: 4E 16:14 → ED 16:14 → SUATTDRO 21:56 → 4E 22:32
DX: Z79.52 Long term (current) use of systemic steroids; E87.8 Other disorders of electrolyte and fluid balance, not elsewhere classified; M06.9 Rheumatoid arthritis, unspecified; E86.0 Dehydration; Z80.9 Family history of malignant neoplasm, unspecified; I10 Essential (primary) hypertension; E11.9 Type 2 diabetes mellitus without complications; Z79.84 Long term (current) use of oral hypoglycemic drugs; K22.2 Esophageal obstruction; K59.00 Constipation, unspecified; Z82.49 Family history of ischemic heart disease and other diseases of the circulatory system; E27.40 Unspecified adrenocortical insufficiency; E87.6 Hypokalemia; Z66 Do not resuscitate; I45.81 Long QT syndrome; Z83.3 Family history of diabetes mellitus; R11.2 Nausea with vomiting, unspecified; Z96.652 Presence of left artificial knee joint; E78.00 Pure hypercholesterolemia, unspecified; E78.5 Hyperlipidemia, unspecified; R13.10 Dysphagia, unspecified; B37.9 Candidiasis, unspecified

== ENCOUNTER 2023-09-07 15:13 | Inpatient (IN) ==
[2023-09-07] MEDS ORDERED: SODIUM CHLORIDE 0.9% 1,000 ML IV ONE ×2 (15:42→16:32)
[2023-09-07] MEDS ORDERED: ONDANSETRON INJ 2 MG/ML 2 ML VIAL IV STA (15:42)
--- NOTE | 2023-09-07 15:50 | Emergency Department Note ---
Impression & Plan Acute alteration in mental status, Acute dehydration, LUIS (acute kidney injury), Urinary tract infection ED Provider Note NAME: HOLLIE ROACH AGE: 67 SEX: M : 1955 ARRIVES VIA: Walk-In INFORMANT: Patient, the patient's significant other ED PROVIDER(S): Fadi Okeefe DO CHIEF COMPLAINT: Altered mental status HPI: The patient is a 67-year-old male who presented to the emergency department for an evaluation of altered mental status. The patient's significant other does give most of the history. The patient's been confused and lethargic throughout the day. He has been having problems with elevated blood sugar. He is also had 3 days of illness including diarrhea and muscle aches. The patient states he has bilateral leg weakness. He denies having any abdominal pain or chest pain. He has been using [id number] Dramamine because of the way he has been feeling. He denies having any rectal bleeding. He denies having any fever. He has been very nauseated and this is why he is taking the Dramamine. He denies having any headache but his significant other states that he has been confused especially today. Patient was seen our facility recently for a problem with his heart. He was diagnosed with myocarditis. He had extensive work-up but no answer to his abnormal troponin could be found. ROS: See above HPI for pertinent positives & negatives. A total of 10 systems reviewed and were otherwise negative. PAST MEDICAL HISTORY: See Below PAST SURGICAL HISTORY: See Below FAMILY HISTORY: See Below SOCIAL HISTORY: See Below HOME MEDICATIONS: See Below ALLERGIES: See Below VITALS: See Below PHYSICAL EXAMINATION: GENERAL: The patient is listless and slow to respond to questioning. The patient does not appear to be uncomfortable. EYES: The conjunctivae are clear. The pupils are constricted but reactive bilaterally. EARS, NOSE, MOUTH AND THROAT: The nose is without any evidence of any deformity. Mucous membranes are dry. NECK: The neck is nontender and supple. RESPIRATORY: Normal respiratory effort is noted there is no evidence of wheezing rhonchi or rales CARDIOVASCULAR: Regular rate and rhythm noted there no murmurs rubs or gallops normal S1 normal S2. GASTROINTESTINAL: The abdomen was soft and mildly distended. There is right- sided tenderness to palpation but no guarding rigidity. BACK: No midline tenderness or or step-off noted range of motion in flexion extension as well as rotation no signs of muscle spasm noted MUSCULOSKELETAL/EXTREMITIES: There is no evidence of gross deformity full range of motion is noted in the hips and shoulders. SKIN: Trace pedal edema was noted bilaterally. Skin was pale and dry. Lips were very pale and nailbeds were pale. NEUROLOGIC: Patient is awake and oriented to person place and situation. Strength was diminished but symmetric. MEDICAL DECISION MAKING: The patient is a 67-year-old male who presented to the emergency department for an evaluation of altered mental status and weakness. The patient was found have hypotension. He was treated as a septic patient and received IV fluids and IV antibiotics early in his course. I discussed the patient's laboratory and radiographic studies with him and his significant other. At this time he does appear to have signs of urinary tract infection. It is possible this is causing his sepsis. The patient also has a history of chronic steroid use. I discussed the patient's laboratory and radiographic studies with the [facility] hospitalist group. They have agreed to evaluate the patient in the emergency department for further management and disposition. The patient was having episodes of diarrhea. It is possible the patient is very dehydrated because this. Triage Nursing notes reviewed. Prior medical records reviewed Vital Signs: reviewed and remarkable for initial hypotension. Differential diagnosis: Infection, hypoglycemia, electrolyte abnormalities, overdose, toxicologic, cardiac sources, intracerebral event, neurologic, trauma, as well as other pathologies. ER treatment provided: See below Diagnostics interpreted by me: ECG: EKG was obtained in the emergency department. My interpretation is sinus rhythm at 68 bpm. PVCs were noted. Nonspecific ST depression with T wave abnormalities were noted diffusely. This was compared to a tracing from July 20, 2023. No changes were noted. Cardiac Monitoring: An order was placed for continuous cardiac monitoring. The monitor shows a rate of 69 bpm with sinus rhythm. Laboratory studies: As stated above and show below. Imaging studies: See below. Radiographic imaging was reviewed by myself Consultation(s): I discussed this case with Dr Thomas ED COURSE: Procedures: none Critical Care: I have personally spent greater than 55 minutes of critical care time in the direct management of this patient. This includes bedside care, interpretation of diagnostic studies, and testing, discussion with consultants, patient, and family members, and other required patient management activities. This 55 minutes is in excess of all separately billable procedures. 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 per -"better since he had his brain surgery" Hx of migraines Anemia pt and deny Erectile dysfunction GERD (gastroesophageal reflux disease) Obesity Hyperlipidemia Central stenosis of spinal canal Sciatica "Had surgery to fix" 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 Rheumatoid arthritis Degenerative disc disease History of esophageal stricture S/P DILATION Diabetes mellitus, type 2 Hypertension Surgical History H/O brain surgery 10/2020, C 11/23/21, [facility] [place] History of colonoscopy Hx of esophagogastroduodenoscopy dilation History of back surgery lumbar fusion History of total knee replacement LEFT History of tooth extraction History of blepharoplasty right and left Family History Mother Family history of diabetes mellitus Hypertension Father Cancer Brother Emphysema lung Social History Smoking Status: Never smoker Second Hand Exposure: No; Do You Dip or Chew Tobacco: No; Hx Alcohol Use: No Hx Substance Use: No Preferred Language: Emirati Communication Ability: Effective Visual Impairment: No Limitations Hearing Ability: Normal Manager Inpatient Required: No Beliefs That Will Affect Care: None marital status: Current Living Situation: Spouse current occupational status: employed Feels Safe at Home: Yes Assistive Devices: None Allergies Allergies Allergy/AdvReac Type Severity Reaction Status Date / Time No Known Drug Allergies Allergy Verified 08/22/23 10:26 Home Meds Home Medications Medication Instructions Recorded Confirmed alfuzosin 10 mg tablet,extended 10 mg PO QAM 04/22/23 09/07/23 release 24 hr (Uroxatral) levothyroxine 175 mcg tablet 175 mcg PO QAM 04/22/23 09/07/23 testosterone cypionate 100 mg/mL 100 mg IM Q7D 04/22/23 09/07/23 intramuscular oil acetaminophen 650 mg 1,300 mg PO QAM 07/18/23 09/07/23 tablet,extended release (Tylenol Arthritis Pain) atorvastatin 40 mg tablet 40 mg PO QAM 07/18/23 09/07/23 gabapentin 100 mg capsule 100 mg PO TID 07/18/23 09/07/23 hydrocortisone 10 mg tablet 10 mg PO UD 07/18/23 09/07/23 oypzlsmccybz-plnxlvay-xglkxk 1 tab PO DAILY 07/18/23 09/07/23 tablet (Multivitamin 50 Plus tablet) propranolol 20 mg tablet 20 mg PO BID 07/18/23 09/07/23 metformin 1,000 mg tablet 1,000 mg PO BID 09/07/23 09/07/23 Previous Rx's Medication Instructions Recorded tadalafil 10 mg tablet (Cialis) 10 mg PO DAILY PRN sexual activity 01/20/21 #6 tabs pen needle, diabetic 32 gauge x #100 ea 05/30/21" (BD Ultra-Fine Elsa Pen Needle) blood sugar diagnostic (OneTouch #200 ea 07/09/22 Verio test strips) lancets 30 gauge (OneTouch Delica #200 ea 07/09/22 Plus Lancet) needle (disp) 18 G 18 gauge x 1 #100 ea 07/09/22 1/2" (BD PrecisionGlide Non-Sterile) syringe with needle, safety 3 mL #100 ea 07/09/22 25 gauge x 5/8" (Monoject Safety Syringes) meloxicam 15 mg tablet 15 mg PO QAM #90 tabs 09/28/22 pantoprazole 40 mg tablet,delayed 40 mg PO QAM #90 tabs 09/28/22 release furosemide 40 mg tablet (Lasix) 40 mg PO QAM #90 tabs 07/15/23 Results & Data (ED) Vital Signs Vital Signs - 24 hr 09/07/23 15:18 09/07/23 15:45 09/07/23 16:08 Temperature 36.7 C Temperature Source Temporal Artery Scan Pulse Rate 80 70 75 Pulse Rate from SpO2 Sensor Respiratory Rate 16 24 33 H Respiratory Effort / Characteristics Non-Labored Spontaneous Respiratory Depth Normal Blood Pressure 74/53 L 102/59 L 91/73 L Blood Pressure Mean 60 73 79 Blood Pressure Position Sitting Pulse Oximetry 95 Oxygen Delivery Method Room Air Sepsis Recent Fever Within 48 Hours No Sepsis New/Unexplained Change in Mental Status N/A Sepsis Action Taken by Nursing No Action Required 09/07/23 16:15 09/07/23 16:25 09/07/23 16:40 Temperature Temperature Source Pulse Rate 68 69 74 Pulse Rate from SpO2 Sensor Respiratory Rate 22 18 Respiratory Effort / Characteristics Respiratory Depth Blood Pressure 100/58 L 94/68 L Blood Pressure Mean 72 76 Blood Pressure Position Pulse Oximetry Oxygen Delivery Method Sepsis Recent Fever Within 48 Hours Sepsis New/Unexplained Change in Mental Status Sepsis Action Taken by Nursing 09/07/23 17:00 09/07/23 17:10 09/07/23 17:16 Temperature Temperature Source Pulse Rate 74 71 Pulse Rate from SpO2 Sensor 71 Respiratory Rate 20 16 Respiratory Effort / Characteristics Respiratory Depth Blood Pressure 95/59 L 81/62 L Blood Pressure Mean 66 68 Blood Pressure Position Pulse Oximetry 96 Oxygen Delivery Method Sepsis Recent Fever Within 48 Hours Sepsis New/Unexplained Change in Mental Status Sepsis Action Taken by Nursing 09/07/23 17:30 09/07/23 17:45 09/07/23 17:45 Temperature Temperature Source Pulse Rate 73 Pulse Rate from SpO2 Sensor 74 Respiratory Rate 19 Respiratory Effort / Characteristics Respiratory Depth Blood Pressure 90/59 L 99/64 L Blood Pressure Mean 62 70 Blood Pressure Position Pulse Oximetry 95 Oxygen Delivery Method Sepsis Recent Fever Within 48 Hours Sepsis New/Unexplained Change in Mental Status Sepsis Action Taken by Nursing 09/07/23 18:00 09/07/23 18:00 09/07/23 18:15 Temperature Temperature Source Pulse Rate 76 72 Pulse Rate from SpO2 Sensor 76 71 Respiratory Rate 19 15 Respiratory Effort / Characteristics Respiratory Depth Blood Pressure 122/58 L Blood Pressure Mean 85 Blood Pressure Position Pulse Oximetry 93 96 Oxygen Delivery Method Sepsis Recent Fever Within 48 Hours Sepsis New/Unexplained Change in Mental Status Sepsis Action Taken by Nursing 09/07/23 18:15 09/07/23 18:30 09/07/23 18:30 Temperature Temperature Source Pulse Rate 77 Pulse Rate from SpO2 Sensor 77 Respiratory Rate 18 Respiratory Effort / Characteristics Respiratory Depth Blood Pressure 97/71 L 101/60 Blood Pressure Mean 77 67 Blood Pressure Position Pulse Oximetry 94 Oxygen Delivery Method Sepsis Recent Fever Within 48 Hours Sepsis New/Unexplained Change in Mental Status Sepsis Action Taken by Nursing 09/07/23 18:45 09/07/23 18:45 09/07/23 19:00 Temperature Temperature Source Pulse Rate 78 78 Pulse Rate from SpO2 Sensor 79 79 Respiratory Rate 17 15 Respiratory Effort / Characteristics Respiratory Depth Blood Pressure 97/63 L Blood Pressure Mean 72 Blood Pressure Position Pulse Oximetry 94 96 Oxygen Delivery Method Sepsis Recent Fever Within 48 Hours Sepsis New/Unexplained Change in Mental Status Sepsis Action Taken by Nursing 09/07/23 19:01 09/07/23 19:01 09/07/23 19:15 Temperature Temperature Source Pulse Rate 77 Pulse Rate from SpO2 Sensor 77 Respiratory Rate 21 Respiratory Effort / Characteristics Respiratory Depth Blood Pressure 88/59 L 82/52 L Blood Pressure Mean 67 55 Blood Pressure Position Pulse Oximetry 95 Oxygen Delivery Method Sepsis Recent Fever Within 48 Hours Sepsis New/Unexplained Change in Mental Status Sepsis Action Taken by Nursing 09/07/23 19:15 09/07/23 19:16 09/07/23 19:30 Temperature Temperature Source Pulse Rate 77 77 75 Pulse Rate from SpO2 Sensor 78 74 Respiratory Rate 19 13 Respiratory Effort / Characteristics Respiratory Depth Blood Pressure Blood Pressure Mean Blood Pressure Position Pulse Oximetry 94 93 Oxygen Delivery Method Sepsis Recent Fever Within 48 Hours Sepsis New/Unexplained Change in Mental Status Sepsis Action Taken by Nursing 09/07/23 19:30 09/07/23 19:45 09/07/23 19:45 Temperature Temperature Source Pulse Rate 76 Pulse Rate from SpO2 Sensor 77 Respiratory Rate 17 Respiratory Effort / Characteristics Respiratory Depth Blood Pressure 82/46 L 93/54 L Blood Pressure Mean 55 77 Blood Pressure Position Pulse Oximetry 94 Oxygen Delivery Method Sepsis Recent Fever Within 48 Hours Sepsis New/Unexplained Change in Mental Status Sepsis Action Taken by Nursing 09/07/23 20:00 09/07/23 20:00 09/07/23 20:15 Temperature Temperature Source Pulse Rate 68 Pulse Rate from SpO2 Sensor 69 76 Respiratory Rate 19 20 Respiratory Effort / Characteristics Respiratory Depth Blood Pressure 95/60 L Blood Pressure Mean 67 Blood Pressure Position Pulse Oximetry 94 95 Oxygen Delivery Method Sepsis Recent Fever Within 48 Hours Sepsis New/Unexplained Change in Mental Status Sepsis Action Taken by Nursing 09/07/23 20:15 09/07/23 20:30 09/07/23 20:30 Temperature Temperature Source Pulse Rate 74 Pulse Rate from SpO2 Sensor 74 Respiratory Rate 14 Respiratory Effort / Characteristics Respiratory Depth Blood Pressure 97/67 L 111/69 Blood Pressure Mean 74 86 Blood Pressure Position Pulse Oximetry 96 Oxygen Delivery Method Sepsis Recent Fever Within 48 Hours Sepsis New/Unexplained Change in Mental Status Sepsis Action Taken by Nursing 09/07/23 20:45 09/07/23 20:45 09/07/23 21:00 Temperature Temperature Source Pulse Rate 71 72 Pulse Rate from SpO2 Sensor 72 71 Respiratory Rate 20 17 Respiratory Effort / Characteristics Respiratory Depth Blood Pressure 100/62 Blood Pressure Mean 73 Blood Pressure Position Pulse Oximetry 95 87 L Oxygen Delivery Method Sepsis Recent Fever Within 48 Hours Sepsis New/Unexplained Change in Mental Status Sepsis Action Taken by Nursing 09/07/23 21:00 09/07/23 21:15 09/07/23 21:15 Temperature Temperature Source Pulse Rate 71 Pulse Rate from SpO2 Sensor 72 Respiratory Rate 22 Respiratory Effort / Characteristics Respiratory Depth Blood Pressure 108/69 107/66 Blood Pressure Mean 87 78 Blood Pressure Position Pulse Oximetry 93 Oxygen Delivery Method Sepsis Recent Fever Within 48 Hours Sepsis New/Unexplained Change in Mental Status Sepsis Action Taken by Nursing 09/07/23 21:30 09/07/23 21:30 Temperature Temperature Source Pulse Rate 69 Pulse Rate from SpO2 Sensor 73 Respiratory Rate 22 Respiratory Effort / Characteristics Respiratory Depth Blood Pressure 105/63 Blood Pressure Mean 84 Blood Pressure Position Pulse Oximetry 93 Oxygen Delivery Method Sepsis Recent Fever Within 48 Hours Sepsis New/Unexplained Change in Mental Status Sepsis Action Taken by Alf Medications Current Medication List: was personally reviewed by me Laboratory Data Attestation: I reviewed the patient's lab results. 09/07/23 15:35 09/07/23 15:35 Lab Results 09/07/23 09/07/23 09/07/23 Range/Units 15:35 15:41 15:50 WBC 5.84 (4.8-10.8) K/ul RBC 4.14 L (4.70-6.10) M/uL Hgb 12.5 L (14.0-18.0) g/dl POC Hgb 12.2 L (14.0-18.0) g/dl Hct 36.6 L (42.0-52.0) % POC Hct 36 L (42-52) % MCV 88.4 (80.0-100.0) fL MCH 30.2 (25.0-34.0) pg MCHC 34.2 (32.0-36.0) g/dL RDW Std Deviation 42.1 (36.4-46.3) fL RDW Coeff of Tanvir 13.0 (11.5-14.5) % Plt Count 181 (130-400) K/uL MPV 11.0 (9.4-12.4) fL Immature Gran % (Auto) 0.2 % Neut % (Auto) 35.5 % Lymph % (Auto) 46.4 % Carl[place] % (Auto) 10.6 % Eos % (Auto) 6.3 % Baso % (Auto) 1.0 % Neut # (Auto) 2.07 (1.40-6.50) K/uL Lymph # (Auto) 2.71 (1.20-3.40) K/uL [place] # (Auto) 0.62 H (0.11-0.59) K/uL Eos # (Auto) 0.37 (0.00-0.50) K/uL Baso # (Auto) 0.06 (0.00-0.20) K/uL Immature Gran # (Auto) 0.01 (0.01-0.20) K/uL PT 12.4 H (9.0-12.0) Seconds INR 1.1 (0.9-1.1) APTT 28.9 (21.0-31.0) Seconds PTT Ratio 1.0 VBG pH (7.36-7.41) VBG pCO2 (38-50) mmHg VBG pO2 mmHg VBG HCO3 mmol/L VBG O2 Saturation % VBG Base Excess mEq/L Carboxyhemoglobin % THgb Methemoglobin (0.0-1.5) % POC Sodium 138 (135-144) mmol/L Sodium 137 (136-145) mmol/L POC Potassium 4.2 (3.3-5.0) mmol/L Potassium 4.1 (3.5-5.1) mmol/L POC Chloride 101 (101-112) mmol/L Chloride 101 (98-107) mmol/L Carbon Dioxide 27 (21-32) mmol/L POC Total CO2 24 (24-31) mmol/L Anion Gap 9 (3-11) POC Anion Gap 18.0 (16-25) mmol/L POC BUN 19 H (7-18) mg/dl BUN 19 (6-23) mg/dl Creatinine 1.87 H (0.6-1.4) mg/dl POC Creatinine 2.0 H (0.6-1.3) mg/dl Est Cr Clr Drug Dosing 42.2 ml/min Est GFR ( Amer) 42.8 ml/min Est GFR (Non-Af Amer) 36.9 ml/min BUN/Creatinine Ratio 10.2 (10-20) Glucose 172 H (70-99(Fasting)) mg/dl POC Glucose (70-99) mg/dl POC Glucose (other) 172 H (70-99) mg/dl Lactate (0.4-2.0) mmol/L Calcium 10.8 H (8.6-10.3) mg/dl POC Ioniz Calcium Alhaji 1.30 (1.12-1.32) mmol/l Magnesium 1.7 (1.7-2.4) mg/dl Total Bilirubin 1.0 (0.2-1.0) mg/dl Direct Bilirubin 0.2 (0-0.2) mg/dl AST 33 (13-39) U/L ALT 23 (7-52) U/L Alkaline Phosphatase 36 (34-104) U/L Ammonia (18-72) umol/L Total Creatine Kinase 92 (30-223) U/L Troponin I High Sens 5.1 (0-20) pg/ml C-Reactive Protein 0.57 H (0-0.5) mg/dl Total Protein 7.3 (6.0-8.3) gm/dl Albumin 4.2 (3.4-5.0) gm/dl Procalcitonin 0.26 (0-0.5) ng/ml Random Cortisol 0.89 mcg/dl Urine Color Urine Appearance (Clear) Urine pH (4.5-7.5) Ur Specific [place] (1.000-1.030) Urine Protein (Negative) Urine Glucose (UA) (Negative) Urine Ketones (Negative) Urine Blood (Negative) Urine Nitrite (Negative) Urine Bilirubin (Negative) Urine Urobilinogen (Negative) Ur Leukocyte Esterase (Negative) Urine WBC (Auto) (0-5) /hpf Urine RBC (Auto) (0-4) /hpf U Hyaline Cast (Auto) (0-5) /lpf U Epithel Cells (Auto) (0-5) /lpf Urine Bacteria (Auto) (Negative) Urine Yeast Adenovirus (PCR) Not Detected (NotDetected) B. pertussis DNA (PCR) Not Detected (NotDetected) B.parapertussis DNA PCR Not Detected (NotDetected) C. pneumoniae DNA (PCR) Not Detected (NotDetected) Coronavirus OC43 (PCR) Not Detected (NotDetected) Coronavirus HKU1 (PCR) Not Detected (NotDetected) Coronavirus 229E (PCR) Not Detected (NotDetected) SARS-CoV-2 (PCR) Not Detected (NotDetected) Coronavirus NL63 (PCR) Not Detected (NotDetected) Human Metapneumovir PCR Not Detected (NotDetected) Influenza Type A (PCR) Not Detected (NotDetected) Influenza Type B (PCR) Not Detected (NotDetected) M. pneumoniae (PCR) Not Detected (NotDetected) Parainfluenza 1 (PCR) Not Detected (NotDetected) Parainfluenza 2 (PCR) Not Detected (NotDetected) Parainfluenza 3 (PCR) Not Detected (NotDetected) Parainfluenza 4 (PCR) Not Detected (NotDetected) RSV (PCR) Not Detected (NotDetected) Entero/Rhino (PCR) Not Detected (NotDetected) Blood Type Antibody Screen 09/07/23 09/07/23 09/07/23 Range/Units 15:54 17:26 17:50 WBC (4.8-10.8) K/ul RBC (4.70-6.10) M/uL Hgb (14.0-18.0) g/dl POC Hgb (14.0-18.0) g/dl Hct (42.0-52.0) % POC Hct (42-52) % MCV (80.0-100.0) fL MCH (25.0-34.0) pg MCHC (32.0-36.0) g/dL RDW Std Deviation (36.4-46.3) fL RDW Coeff of Tanvir (11.5-14.5) % Plt Count (130-400) K/uL MPV (9.4-12.4) fL Immature Gran % (Auto) % Neut % (Auto) % Lymph % (Auto) % [place] % (Auto) % Eos % (Auto) % Baso % (Auto) % Neut # (Auto) (1.40-6.50) K/uL Lymph # (Auto) (1.20-3.40) K/uL [place] # (Auto) (0.11-0.59) K/uL Eos # (Auto) (0.00-0.50) K/uL Baso # (Auto) (0.00-0.20) K/uL Immature Gran # (Auto) (0.01-0.20) K/uL PT (9.0-12.0) Seconds INR (0.9-1.1) APTT (21.0-31.0) Seconds PTT Ratio VBG pH 7.27 L (7.36-7.41) VBG pCO2 52 H (38-50) mmHg VBG pO2 < 20 mmHg VBG HCO3 24 mmol/L VBG O2 Saturation < 60.0 % VBG Base Excess -3.6 mEq/L Carboxyhemoglobin 1.0 % THgb Methemoglobin 0.7 (0.0-1.5) % POC Sodium (135-144) mmol/L Sodium (136-145) mmol/L POC Potassium (3.3-5.0) mmol/L Potassium (3.5-5.1) mmol/L POC Chloride (101-112) mmol/L Chloride (98-107) mmol/L Carbon Dioxide (21-32) mmol/L POC Total CO2 (24-31) mmol/L Anion Gap (3-11) POC Anion Gap (16-25) mmol/L POC BUN (7-18) mg/dl BUN (6-23) mg/dl Creatinine (0.6-1.4) mg/dl POC Creatinine (0.6-1.3) mg/dl Est Cr Clr Drug Dosing ml/min Est GFR ( Amer) ml/min Est GFR (Non-Af Amer) ml/min BUN/Creatinine Ratio (10-20) Glucose (70-99(Fasting)) mg/dl POC Glucose (70-99) mg/dl POC Glucose (other) (70-99) mg/dl Lactate 3.1 H* 2.2 H* (0.4-2.0) mmol/L Calcium (8.6-10.3) mg/dl POC Ioniz Calcium Alhaji (1.12-1.32) mmol/l Magnesium (1.7-2.4) mg/dl Total Bilirubin (0.2-1.0) mg/dl Direct Bilirubin (0-0.2) mg/dl AST (13-39) U/L ALT (7-52) U/L Alkaline Phosphatase (34-104) U/L Ammonia 30.0 (18-72) umol/L Total Creatine Kinase (30-223) U/L Troponin I High Sens (0-20) pg/ml C-Reactive Protein (0-0.5) mg/dl Total Protein (6.0-8.3) gm/dl Albumin (3.4-5.0) gm/dl Procalcitonin (0-0.5) ng/ml Random Cortisol mcg/dl Urine Color Yellow Urine Appearance Cloudy A (Clear) Urine pH 5.0 (4.5-7.5) Ur Specific [place] 1.042 H (1.000-1.030) Urine Protein 2+ H (Negative) Urine Glucose (UA) Negative (Negative) Urine Ketones Negative (Negative) Urine Blood 3+ H (Negative) Urine Nitrite Negative (Negative) Urine Bilirubin Negative (Negative) Urine Urobilinogen Negative (Negative) Ur Leukocyte Esterase Negative (Negative) Urine WBC (Auto) 10-30 H (0-5) /hpf Urine RBC (Auto) >30 H (0-4) /hpf U Hyaline Cast (Auto) 10-30 H (0-5) /lpf U Epithel Cells (Auto) >30 H (0-5) /lpf Urine Bacteria (Auto) 1+ H (Negative) Urine Yeast Not Reportable Adenovirus (PCR) (NotDetected) B. pertussis DNA (PCR) (NotDetected) B.parapertussis DNA PCR (NotDetected) C. pneumoniae DNA (PCR) (NotDetected) Coronavirus OC43 (PCR) (NotDetected) Coronavirus HKU1 (PCR) (NotDetected) Coronavirus 229E (PCR) (NotDetected) SARS-CoV-2 (PCR) (NotDetected) Coronavirus NL63 (PCR) (NotDetected) Human Metapneumovir PCR (NotDetected) Influenza Type A (PCR) (NotDetected) Influenza Type B (PCR) (NotDetected) M. pneumoniae (PCR) (NotDetected) Parainfluenza 1 (PCR) (NotDetected) Parainfluenza 2 (PCR) (NotDetected) Parainfluenza 3 (PCR) (NotDetected) Parainfluenza 4 (PCR) (NotDetected) RSV (PCR) (NotDetected) Entero/Rhino (PCR) (NotDetected) Blood Type B Positive Antibody Screen NEGATIVE 09/07/23 Range/Units 21:14 WBC (4.8-10.8) K/ul RBC (4.70-6.10) M/uL Hgb (14.0-18.0) g/dl POC Hgb (14.0-18.0) g/dl Hct (42.0-52.0) % POC Hct (42-52) % MCV (80.0-100.0) fL MCH (25.0-34.0) pg MCHC (32.0-36.0) g/dL RDW Std Deviation (36.4-46.3) fL RDW Coeff of Tanvir (11.5-14.5) % Plt Count (130-400) K/uL MPV (9.4-12.4) fL Immature Gran % (Auto) % Neut % (Auto) % Lymph % (Auto) % [place] % (Auto) % Eos % (Auto) % Baso % (Auto) % Neut # (Auto) (1.40-6.50) K/uL Lymph # (Auto) (1.20-3.40) K/uL [place] # (Auto) (0.11-0.59) K/uL Eos # (Auto) (0.00-0.50) K/uL Baso # (Auto) (0.00-0.20) K/uL Immature Gran # (Auto) (0.01-0.20) K/uL PT (9.0-12.0) Seconds INR (0.9-1.1) APTT (21.0-31.0) Seconds PTT Ratio VBG pH (7.36-7.41) VBG pCO2 (38-50) mmHg VBG pO2 mmHg VBG HCO3 mmol/L VBG O2 Saturation % VBG Base Excess mEq/L Carboxyhemoglobin % THgb Methemoglobin (0.0-1.5) % POC Sodium (135-144) mmol/L Sodium (136-145) mmol/L POC Potassium (3.3-5.0) mmol/L Potassium (3.5-5.1) mmol/L POC Chloride (101-112) mmol/L Chloride (98-107) mmol/L Carbon Dioxide (21-32) mmol/L POC Total CO2 (24-31) mmol/L Anion Gap (3-11) POC Anion Gap (16-25) mmol/L POC BUN (7-18) mg/dl BUN (6-23) mg/dl Creatinine (0.6-1.4) mg/dl POC Creatinine (0.6-1.3) mg/dl Est Cr Clr Drug Dosing ml/min Est GFR ( Amer) ml/min Est GFR (Non-Af Amer) ml/min BUN/Creatinine Ratio (10-20) Glucose (70-99(Fasting)) mg/dl POC Glucose 195 H (70-99) mg/dl POC Glucose (other) (70-99) mg/dl Lactate (0.4-2.0) mmol/L Calcium (8.6-10.3) mg/dl POC Ioniz Calcium Alhaji (1.12-1.32) mmol/l Magnesium (1.7-2.4) mg/dl Total Bilirubin (0.2-1.0) mg/dl Direct Bilirubin (0-0.2) mg/dl AST (13-39) U/L ALT (7-52) U/L Alkaline Phosphatase (34-104) U/L Ammonia (18-72) umol/L Total Creatine Kinase (30-223) U/L Troponin I High Sens (0-20) pg/ml C-Reactive Protein (0-0.5) mg/dl Total Protein (6.0-8.3) gm/dl Albumin (3.4-5.0) gm/dl Procalcitonin (0-0.5) ng/ml Random Cortisol mcg/dl Urine Color Urine Appearance (Clear) Urine pH (4.5-7.5) Ur Specific [place] (1.000-1.030) Urine Protein (Negative) Urine Glucose (UA) (Negative) Urine Ketones (Negative) Urine Blood (Negative) Urine Nitrite (Negative) Urine Bilirubin (Negative) Urine Urobilinogen (Negative) Ur Leukocyte Esterase (Negative) Urine WBC (Auto) (0-5) /hpf Urine RBC (Auto) (0-4) /hpf U Hyaline Cast (Auto) (0-5) /lpf U Epithel Cells (Auto) (0-5) /lpf Urine Bacteria (Auto) (Negative) Urine Yeast Adenovirus (PCR) (NotDetected) B. pertussis DNA (PCR) (NotDetected) B.parapertussis DNA PCR (NotDetected) C. pneumoniae DNA (PCR) (NotDetected) Coronavirus OC43 (PCR) (NotDetected) Coronavirus HKU1 (PCR) (NotDetected) Coronavirus 229E (PCR) (NotDetected) SARS-CoV-2 (PCR) (NotDetected) Coronavirus NL63 (PCR) (NotDetected) Human Metapneumovir PCR (NotDetected) Influenza Type A (PCR) (NotDetected) Influenza Type B (PCR) (NotDetected) M. pneumoniae (PCR) (NotDetected) Parainfluenza 1 (PCR) (NotDetected) Parainfluenza 2 (PCR) (NotDetected) Parainfluenza 3 (PCR) (NotDetected) Parainfluenza 4 (PCR) (NotDetected) RSV (PCR) (NotDetected) Entero/Rhino (PCR) (NotDetected) Blood Type Antibody Screen Administered Medications Insulin Aspart (Insulin Aspart Per Unit Charge) 0 units SC ACHS KATIE Stop: 10/07/23 20:59 Last Admin: 09/07/23 21:27 Dose: 2 units Documented By: TIFFANIE Co-signed By: TW Discontinued Medications Hydrocortisone Sodium Succinate (Hydrocortisone Sod Succinate 100 Mg/2 Ml Vial) 100 mg IV NOW STA Stop: 09/07/23 18:29 Last Admin: 09/07/23 18:43 Dose: Not Given Documented By: TIFFANIE Hydrocortisone Sodium Succinate (Hydrocortisone Sod Succinate 100 Mg/2 Ml Vial) Confirm Administered Dose 100 mg .ROUTE .STK-MED ONE Stop: 09/07/23 18:37 Last Admin: 09/07/23 18:39 Dose: 100 mg Documented By: TIFFANIE Hydrocortisone Sodium Succinate (Hydrocortisone Sod Succinate 100 Mg/2 Ml Vial) Confirm Administered Dose 100 mg .ROUTE .STK-MED ONE Stop: 09/07/23 21:27 Last Admin: 09/07/23 21:27 Dose: 50 mg Documented By: ARS Sodium Chloride (Nss) 1,000 mls @ 999 mls/hr IV .Q1H1M ONE Stop: 09/07/23 16:42 Last Infusion: 09/07/23 16:41 Dose: Infused Documented By: Admin: 09/07/23 16:06 Dose: 999 mls/hr Documented By: ARS Sodium Chloride (Nss) 1,000 mls @ 999 mls/hr IV .Q1H1M ONE Stop: 09/07/23 17:32 Last Infusion: 09/07/23 21:55 Dose: Infused Documented By: Admin: 09/07/23 16:41 Dose: 999 mls/hr Documented By: ARS Cefepime HCl (Maxipime) 2,000 mg in 20 mls @ 5 mls/min IV NOW STA; Protocol Stop: 09/07/23 16:35 Last Admin: 09/07/23 16:41 Dose: 5 mls/min Documented By: ARS Lactated Ringer's (Lr) 1,000 mls @ 999 mls/hr IV .Q1H1M ONE Stop: 09/07/23 20:13 Last Infusion: 09/07/23 21:55 Dose: Infused Documented By: Admin: 09/07/23 19:50 Dose: 999 mls/hr Documented By: TIFFANIE Acetaminophen (Ofirmev) 1,000 mg in 100 mls @ 400 mls/hr IV NOW STA Stop: 09/07/23 19:28 Last Infusion: 09/07/23 21:55 Dose: Infused Documented By: Admin: 09/07/23 19:48 Dose: 400 mls/hr Documented By: TIFFANIE Piperacillin Sod/Tazobactam Sod (Zosyn) 4.5 gm in 100 mls @ 200 mls/hr IV NOW ONE Stop: 09/07/23 20:19 Last Infusion: 09/07/23 21:55 Dose: Infused Documented By: Admin: 09/07/23 20:31 Dose: 200 mls/hr Documented By: TIFFANIE Ioversol (Optiray 320 125ml) 118 ml IV ONCE ONE Stop: 09/07/23 16:32 Last Admin: 09/07/23 16:32 Dose: 118 ml Documented By: MABEL Ondansetron HCl (Ondansetron Inj 2 Mg/Ml 2 Ml Vial) 4 mg IV NOW STA Stop: 09/07/23 15:43 Last Admin: 09/07/23 16:06 Dose: 4 mg Documented By: TIFFANIE Imaging Data My Impression: 1 view chest x-ray was obtained in the emergency department. My interpretation is no free air or definite infiltrate, final report below. CT the brain was obtained in the emergency department. My interpretation is no intracranial hemorrhage, this was compared to a previous CT of the brain, there was enhancement on the left lateral horn, this was present on previous CT, final report below. CT of the abdomen and pelvis was obtained in the emergency department. My interpretation is no free air or signs of bowel obstruction, final report below. Radiologist's Impression: Chest X-Ray 09/07/23 15:37 SINGLE VIEW CHEST CLINICAL HISTORY: Sepsis. FINDINGS: An AP, portable, upright chest radiograph is compared to chest x-ray and chest CT dated 07/18/2023. The examination is degraded by portable technique and apical lordotic positioning. The heart is enlarged. The pulmonary vasculature is noncongested. Chronic interstitial thickening similar to previous. There is bibasilar scarring/atelectasis. The lungs and pleural spaces are otherwise clear. No pneumothorax is seen. The skeletal structures are osteopenic. The bony thorax is grossly intact. IMPRESSION: Cardiomegaly with no active disease in the chest. ACT 112: Negative or not required by law. Electronically signed by: Mohsen Pal M.D. 09/07/2023 5:48 PM Abdomen/Pelvis CT 09/07/23 15:43 CT ANGIOGRAM OF THE CHEST; CT SCAN OF THE ABDOMEN AND PELVIS WITH IV CONTRAST CLINICAL HISTORY: Change in mental status. Generalized weakness. Diarrhea. Right-sided abdominal pain. COMPARISON STUDY: CT scan of the chest, abdomen, and pelvis dated 07/18/2023. The chest x-ray dated 09/07/2023. TECHNIQUE: Following the IV administration of 118 of Optiray 320, CT angiogram of the chest is performed from the upper abdomen to the thoracic inlet utilizing the pulmonary embolus protocol. Images are reviewed in the axial, sagittal, coronal planes. 3-D MIPS images are created and assessed. Subsequently, CT scan of the abdomen and pelvis was performed from the lung bases to the proximal femora. Images are reviewed in the axial, sagittal, and coronal planes. IV contrast was administered without complication. A dose lowering technique was utilized adhering to the principles of ALARA. FINDINGS: CHEST: Thyroid: Atrophic and heterogeneous. Thoracic aorta: The thoracic aorta is normal in caliber and demonstrates standard 3-vessel arch anatomy. The thoracic aorta is not well opacified. Pulmonary vasculature: The pulmonary trunk is normal in caliber. There are no filling defects identified in the main, lobar, or segmental pulmonary arteries to indicate pulmonary embolus. Heart: The heart is enlarged and without pericardial effusion. The coronary arteries are densely calcified. Lungs and pleural spaces: There is bibasilar scarring/atelectasis. No airspace consolidation or pleural effusion is identified. The trachea and central airways are clear. Mild diffuse peribronchial thickening suggests bronchitis/reactive airway disease. Mediastinum: There is no mediastinal lymphadenopathy. Katerine: Clear. Axillae: There is no axillary lymphadenopathy. Bony thorax: The skeletal structures are osteopenic. No lytic or blastic lesions are identified. ABDOMEN AND PELVIS: Liver: The contrast-enhanced liver is enlarged, measuring 21 cm in length. Attenuation is diminished indicating steatosis. There is no intrahepatic biliary ductal dilatation. The hepatic veins and portal veins are patent. A 10 mm left lobe hypodensity on image #49 may represent a cyst or hemangioma but is too small for definitive characterization. Gallbladder: There are small calcified gallstones without CT evidence of acute cholecystitis. Spleen: Normal in size and attenuation. Pancreas: Unremarkable. Adrenal glands: Unremarkable. Kidneys: The contrast enhanced kidneys are normal in size and without hydronephrosis. The kidneys enhance symmetrically. A circumaortic left renal vein is incidentally noted. Abdominal vasculature: The abdominal aorta is normal in course and caliber. Stomach and bowel: There is a small hiatal hernia. There is no bowel obstruction. The appendix is well-visualized and normal. Peritoneum: There is no intraperitoneal free air or abdominal ascites. There is a fat-containing umbilical hernia. Lymphadenopathy: Prominent lymph nodes in the sandie hepatis and portacaval region measure up to 11 mm in short axis. Pelvic viscera: The bladder is decompressed around a Dean catheter and not well evaluated. The bladder appears thick walled. The prostate gland is normal as visualized. Skeletal structures: The skeletal structures are osteopenic. There is lumbosacral spondylosis, with postsurgical change from L4-L5 spinal fusion. No lytic or blastic lesions are seen. IMPRESSION: 1. There is no evidence of pulmonary embolus in the main, lobar, or segmental pulmonary arteries. 2. There is no airspace consolidation or pleural effusion. 3. Cardiomegaly with advanced coronary artery atherosclerosis. 4. The bladder is decompressed around a Dean catheter and appears thick-walled. Correlate with clinical findings and urinalysis. 5. Hepatomegaly and hepatic steatosis. 6. Cholelithiasis. 7. Additional findings as above. ACT 112: Negative or not required by law. Electronically signed by: Mohsen Pal M.D. 09/07/2023 6:04 PM Chest CTA 09/07/23 15:43 CT ANGIOGRAM OF THE CHEST; CT SCAN OF THE ABDOMEN AND PELVIS WITH IV CONTRAST CLINICAL HISTORY: Change in mental status. Generalized weakness. Diarrhea. Right-sided abdominal pain. COMPARISON STUDY: CT scan of the chest, abdomen, and pelvis dated 07/18/2023. The chest x-ray dated 09/07/2023. TECHNIQUE: Following the IV administration of 118 of Optiray 320, CT angiogram of the chest is performed from the upper abdomen to the thoracic inlet utilizing the pulmonary embolus protocol. Images are reviewed in the axial, sagittal, coronal planes. 3-D MIPS images are created and assessed. Subsequently, CT scan of the abdomen and pelvis was performed from the lung bases to the proximal femora. Images are reviewed in the axial, sagittal, and coronal planes. IV contrast was administered without complication. A dose lowering technique was utilized adhering to the principles of ALARA. FINDINGS: CHEST: Thyroid: Atrophic and heterogeneous. Thoracic aorta: The thoracic aorta is normal in caliber and demonstrates standard 3-vessel arch anatomy. The thoracic aorta is not well opacified. Pulmonary vasculature: The pulmonary trunk is normal in caliber. There are no filling defects identified in the main, lobar, or segmental pulmonary arteries to indicate pulmonary embolus. Heart: The heart is enlarged and without pericardial effusion. The coronary arteries are densely calcified. Lungs and pleural spaces: There is bibasilar scarring/atelectasis. No airspace consolidation or pleural effusion is identified. The trachea and central airways are clear. Mild diffuse peribronchial thickening suggests bronchitis/reactive airway disease. Mediastinum: There is no mediastinal lymphadenopathy. Katerine: Clear. Axillae: There is no axillary lymphadenopathy. Bony thorax: The skeletal structures are osteopenic. No lytic or blastic lesions are identified. ABDOMEN AND PELVIS: Liver: The contrast-enhanced liver is enlarged, measuring 21 cm in length. Attenuation is diminished indicating steatosis. There is no intrahepatic biliary ductal dilatation. The hepatic veins and portal veins are patent. A 10 mm left lobe hypodensity on image #49 may represent a cyst or hemangioma but is too small for definitive characterization. Gallbladder: There are small calcified gallstones without CT evidence of acute cholecystitis. Spleen: Normal in size and attenuation. Pancreas: Unremarkable. Adrenal glands: Unremarkable. Kidneys: The contrast enhanced kidneys are normal in size and without hydronephrosis. The kidneys enhance symmetrically. A circumaortic left renal vein is incidentally noted. Abdominal vasculature: The abdominal aorta is normal in course and caliber. Stomach and bowel: There is a small hiatal hernia. There is no bowel obstruction. The appendix is well-visualized and normal. Peritoneum: There is no intraperitoneal free air or abdominal ascites. There is a fat-containing umbilical hernia. Lymphadenopathy: Prominent lymph nodes in the sandie hepatis and portacaval region measure up to 11 mm in short axis. Pelvic viscera: The bladder is decompressed around a Dean catheter and not well evaluated. The bladder appears thick walled. The prostate gland is normal as visualized. Skeletal structures: The skeletal structures are osteopenic. There is lumbosacral spondylosis, with postsurgical change from L4-L5 spinal fusion. No lytic or blastic lesions are seen. IMPRESSION: 1. There is no evidence of pulmonary embolus in the main, lobar, or segmental pulmonary arteries. 2. There is no airspace consolidation or pleural effusion. 3. Cardiomegaly with advanced coronary artery atherosclerosis. 4. The bladder is decompressed around a Dean catheter and appears thick-walled. Correlate with clinical findings and urinalysis. 5. Hepatomegaly and hepatic steatosis. 6. Cholelithiasis. 7. Additional findings as above. ACT 112: Negative or not required by law. Electronically signed by: Mohsen Pal M.D. 09/07/2023 6:[address] 09/07/23 15:43 CT SCAN OF THE BRAIN WITHOUT IV CONTRAST CLINICAL HISTORY: Change in mental status. COMPARISON STUDY: CT of the brain dated 07/19/2023. MRI of the brain dated 10/12/2021. TECHNIQUE: Unenhanced axial CT scan of the brain is performed from the vertex to the skull base. A dose lowering technique was utilized adhering to the principles of ALARA. CT DOSE: 2850.04 mGy.cm FINDINGS: Brain parenchyma: A 13 mm hyperdensity within the deep left frontal lobe white matter is consistent with the patient's known cavernoma. There is age-related involutional change noting minimal subcortical and periventricular microangiopathic disease. There is no hemorrhage, mass effect, or evidence of acute territorial ischemia by CT criteria. Davis-white matter differentiation is preserved. No extra-axial fluid collection is seen. Ventricles, sulci, cisterns: Prominent secondary to involutional change. Intracranial vasculature: There is atherosclerotic calcification of the cavernous carotid and vertebral arteries. Calvarium: Postoperative change is noted in the right frontal bone. No destructive calvarial lesion is identified. Sinuses and mastoids: There is moderate to severe mucosal thickening within the frontal and ethmoid sinuses. Moderate mucosal thickening is noted in the right sphenoid sinus. The mastoid air cells are well pneumatized. Orbits: The bony orbits are grossly intact. IMPRESSION: 1. There is no hemorrhage, mass effect, or evidence of acute territorial ischemia by CT criteria. 2. 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 3. Paranasal sinus disease as above. ACT 112: Negative or not required by law. Electronically signed by: Mohsen Pal M.D. 09/07/2023 4:36 PM Knee X-Ray 09/07/23 20:04 LEFT KNEE 2 VIEWS CLINICAL HISTORY: Fall. Left knee pain. FINDINGS: AP and crosstable lateral views of the left knee are compared to study dated 01/06/2018. The skeletal structures are osteopenic. No fracture is seen. A left knee arthroplasty is in near anatomic alignment. No periprosthetic lucency is identified. There has been undersurface remodeling of the patella. There is a joint effusion. Small calcified joint bodies are noted. Prepatellar soft tissue swelling is observed. A calcified fabella is incidentally noted. IMPRESSION: 1. Soft tissue swelling and joint effusion with no acute bony abnormality identified. 2. A left knee arthroplasty is in near anatomic alignment. Electronically signed by: Mohsen Pal M.D. 09/07/2023 8:35 PM Knee X-Ray 09/07/23 20:04 RIGHT KNEE 2 VIEWS CLINICAL HISTORY: Fall. Right knee pain. FINDINGS: AP and crosstable lateral views of the right knee are compared to study dated 01/06/2018. The skeletal structures are osteopenic. No fracture is seen. There is mild tricompartmental degenerative joint space narrowing. A calcified fabella is incidentally noted. No joint effusion is identified. There is prepatellar soft tissue swelling. IMPRESSION: Soft tissue swelling with no radiographic evidence of acute fracture. Electronically signed by: Mohsen Pal M.D. 09/07/2023 8:36 PM Discharge Plan Visit Data Chief Complaint: Illness Stated Complaint: NOT EATING OR DRINKING/LEG PAIN ED Provider: Fadi Okeefe Discharge Problem: Acute alteration in mental status, Acute dehydration, LUIS (acute kidney injury), Urinary tract infection Patient Disposition: Being Evaluated by Hospitalist Forms Stand Alone Forms: [facility] [email or web address] Prescriptions Prescriptions: No Action tadalafil [Cialis] 10 mg tablet 10 mg PO DAILY PRN (Reason: sexual activity) Qty: 6 5RF Rx Instructions: administer approximately 30 min before sexual activity; do not use more than 1 dose per 48hrs (DME) pen needle, diabetic [BD Ultra-Fine Elsa Pen Needle] 32 gauge x 5/32" needle See Rx Instructions .Route Qty: 100 3RF Rx Instructions: use once daily with growth hormone (DME) OneTouch Verio test strips Strip See Rx Instructions miscellaneous .MEDSUPPLY Qty: 200 3RF Rx Instructions: Check 2x a day (DME) lancets [OneTouch Delica Plus Lancet] 30 gauge misc See Rx Instructions miscellaneous .MEDSUPPLY Qty: 200 3RF Rx Instructions: Check 2x a day (DME) BD PrecisionGlide Non-Sterile 18 gauge x 1 1/2" needle See Rx Instructions .ROUTE .MEDSUPPLY Qty: 100 0RF Rx Instructions: use once weekly for testosterone (DME) Monoject Safety Syringes 3 mL 25 gauge x 5/8" syringe See Rx Instructions .ROUTE .MEDSUPPLY Qty: 100 0RF Rx Instructions: use onece weekly with testosterone pantoprazole 40 mg tablet,delayed release (DR/EC) 40 mg PO QAM Qty: 90 3RF meloxicam 15 mg tablet 15 mg PO QAM Qty: 90 3RF Hold Instructions: PER [facility] [place]- hold x 1 week 11/2021 Rx Instructions: TAKE 1 TABLET BY MOUTH ONCE DAILY IN THE MORNING furosemide [Lasix] 40 mg tablet 40 mg PO QAM Qty: 90 3RF levothyroxine 175 mcg tablet 175 mcg PO QAM testosterone cypionate 100 mg/mL oil 100 mg IM Q7D Rx Instructions: Takes q sun alfuzosin [Uroxatral] 10 mg tablet extended release 24 hr 10 mg PO QAM Rx Instructions: administer after the same meal each day acetaminophen [Tylenol Arthritis Pain] 650 mg Tablet Extended Release 1,300 mg PO QAM Multivitamin 50 Plus Tablet 1 tab PO DAILY atorvastatin 40 mg tablet 40 mg PO QAM Patient Comments: takes qam gabapentin 100 mg capsule 100 mg PO TID hydrocortisone 10 mg tablet 10 mg PO UD Patient Comments: takes 1.5 tablets in the AM and 1/2 tablet 30 minutes later Rx Instructions: take 1.5 tablets in then morning and 1/2 tablet at least 30 minutes later per propranolol 20 mg tablet 20 mg PO BID metformin 1,000 mg tablet 1,000 mg PO BID Referrals Referrals: Fadi Bhatt MD [Primary Care Provider] - Discharge Problem: Urinary tract infection Qualifiers: Urinary tract infection type: site unspecified Hematuria presence: without hematuria Qualified Code(s): N39.0 - Urinary tract infection, site not specified
[2023-09-07 15:52] LABS: iSTAT Hemoglobin 12.2 g/dl (14.0-18.0); iSTAT Ionized Calcium 1.3 mmol/l (1.12-1.32); iSTAT Potassium 4.2 mmol/L (3.3-5.0)
[2023-09-07 15:54] LABS: Basophils # (auto) 0.06 K/uL (0.00-0.20); Eosinophils # (auto) 0.37 K/uL (0.00-0.50); Eosinophils % (auto) 6.3 %; Hematocrit (blood only) 36.6 % (42.0-52.0); Hemoglobin 12.5 g/dl (14.0-18.0); Immature Granulocytes # (auto) 0.01 K/uL (0.01-0.20); Immature Granulocytes % (auto) 0.2 %; Lymphocytes # (auto) 2.71 K/uL (1.20-3.40); Lymphocytes % (auto) 46.4 %; Mean Corpuscular Hemoglobin 30.2 pg (25.0-34.0); Mean Corpuscular Hgb Conc 34.2 g/dL (32.0-36.0); Mean Corpuscular Volume 88.4 fL (80.0-100.0); Monocytes # (auto) 0.62 K/uL (0.11-0.59); Monocytes % (auto) 10.6 %; Neutrophils # (auto) 2.07 K/uL (1.40-6.50); Neutrophils % (auto) 35.5 %; Platelet Count 181 K/uL (130-400); RDW Standard Deviation 42.1 fL (36.4-46.3); Red Blood Count 4.14 M/uL (4.70-6.10); White Blood Count 5.84 K/ul (4.8-10.8)
[2023-09-07 16:09] LABS: Base Excess VBG -3.6 mEq/L; HCO3 VBG 24 mmol/L; Oxygen Saturation VBG < 60.0 %; PCO2 VBG 52 mmHg (38-50); PO2 VBG < 20 mmHg; pH VBG 7.27 (7.36-7.41)
[2023-09-07 16:11] LABS: Methemoglobin 0.7 % (0.0-1.5)
[2023-09-07 16:11] LABS: Albumin Level 4.2 gm/dl (3.4-5.0); BUN Creatinine Ratio 10.2 (10-20); Bilirubin Direct 0.2 mg/dl (0-0.2); C Reactive Protein 0.57 mg/dl (0-0.5); Calcium 10.8 mg/dl (8.6-10.3); Creatinine Clr Calc Pharmacy 42.2 ml/min; Est GFR (African American) 42.8 ml/min; Est GFR (Non-African American) 36.9 ml/min; Magnesium 1.7 mg/dl (1.7-2.4); Potassium 4.1 mmol/L (3.5-5.1); Total Protein 7.3 gm/dl (6.0-8.3)
[2023-09-07 16:17] LABS: Troponin I High Sensitivity 5.1 pg/ml (0-20)
[2023-09-07 16:22] LABS: INR 1.1 (0.9-1.1); Partial Thromboplastin Time 28.9 Seconds (21.0-31.0); Prothrombin Time 12.4 Seconds (9.0-12.0)
[2023-09-07] MEDS ORDERED: OPTIRAY 320 125ml IV ONE (16:31)
[2023-09-07] MEDS ORDERED: CEFEPIME 2,000 MG/20 ML VIAL IV STA (16:32)
--- NOTE | 2023-09-07 16:39 | CT Scan Report ---
CT SCAN OF THE BRAIN WITHOUT IV CONTRAST CLINICAL HISTORY: Change in mental status. COMPARISON STUDY: CT of the brain dated 07/19/2023. MRI of the brain dated 10/12/2021. TECHNIQUE: Unenhanced axial CT scan of the brain is performed from the vertex to the skull base. A do se lowering technique was utilized adhering to the principles of ALARA. CT DOSE: 2850.04 mGy.cm FINDINGS: Brain parenchyma: A 13 mm hyperdensity within the deep left frontal lobe white matter is consistent w ith the patient's known cavernoma. There is age-related involutional change noting minimal subcortica l and periventricular microangiopathic disease. There is no hemorrhage, mass effect, or evidence of a cute territorial ischemia by CT criteria. Davis-white matter differentiation is preserved. No extra-ax ial fluid collection is seen. Ventricles, sulci, cisterns: Prominent secondary to involutional change. Intracranial vasculature: There is atherosclerotic calcification of the cavernous carotid and vertebr al arteries. Calvarium: Postoperative change is noted in the right frontal bone. No destructive calvarial lesion i s identified. Sinuses and mastoids: There is moderate to severe mucosal thickening within the frontal and ethmoid s inuses. Moderate mucosal thickening is noted in the right sphenoid sinus. The mastoid air cells are w ell pneumatized. Orbits: The bony orbits are grossly intact. IMPRESSION: 1. There is no hemorrhage, mass effect, or evidence of acute territorial ischemia by CT criteria. 2. 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 3. Paranasal sinus disease as above. ACT 112: Negative or not required by law. Electronically signed by: Mohsen Pal M.D. 09/07/2023 4:36 PM
[2023-09-07 16:56] LABS: Adenovirus PCR Not Detected (NotDetected); Bordetella parapertussis PCR Not Detected (NotDetected); Bordetella pertussis PCR Not Detected (NotDetected); Chlamydia pneumoniae PCR Not Detected (NotDetected); Coronavirus 229E PCR Not Detected (NotDetected); Coronavirus CoV-2 (COVID19)PCR Not Detected (NotDetected); Coronavirus HKU1 PCR Not Detected (NotDetected); Coronavirus NL63 PCR Not Detected (NotDetected); Coronavirus OC43PCR Not Detected (NotDetected); Human Metapneumovirus PCR Not Detected (NotDetected); Influenza A PCR Not Detected (NotDetected); Influenza B PCR Not Detected (NotDetected); Mycoplasma pneumoniae PCR Not Detected (NotDetected); Parainfluenza Virus 1 PCR Not Detected (NotDetected); Parainfluenza Virus 2 PCR Not Detected (NotDetected); Parainfluenza Virus 3 PCR Not Detected (NotDetected); Parainfluenza Virus 4 PCR Not Detected (NotDetected); Respiratory Syncytial VirusPCR Not Detected (NotDetected); Rhinovirus/Enterovirus PCR Not Detected (NotDetected)
[2023-09-07 17:49] LABS: Appearance Urine Cloudy (Clear); Bacteria Urine Automated 1+ (Negative); Bilirubin Urine Negative (Negative); Blood Urine 3+ (Negative); Color Urine Yellow; Epithelial Cell Urine Auto >30 /lpf (0-5); Glucose Urine UA Negative (Negative); Ketones Urine Negative (Negative); Leukocyte Esterase Urine Negative (Negative); Nitrite Urine Negative (Negative); Protein Urine 2+ (Negative); RBC Urine Automated >30 /hpf (0-4); Specific Gravity Urine 1.042 (1.000-1.030); Urobilinogen Urine Negative (Negative)
--- NOTE | 2023-09-07 17:49 | XRay Report ---
SINGLE VIEW CHEST CLINICAL HISTORY: Sepsis. FINDINGS: An AP, portable, upright chest radiograph is compared to chest x-ray and chest CT dated 06/22. The examination is degraded by portable technique and apical lordotic positioning. The heart is enlarged. The pulmonary vasculature is noncongested. Chronic interstitial thickening similar to pr evious. There is bibasilar scarring/atelectasis. The lungs and pleural spaces are otherwise clear. No pneumothorax is seen. The skeletal structures are osteopenic. The bony thorax is grossly intact. IMPRESSION: Cardiomegaly with no active disease in the chest. ACT 112: Negative or not required by law. Electronically signed by: Mohsen Pal M.D. 09/07/2023 5:48 PM
--- NOTE | 2023-09-07 18:06 | CT Scan Report ---
CT ANGIOGRAM OF THE CHEST; CT SCAN OF THE ABDOMEN AND PELVIS WITH IV CONTRAST CLINICAL HISTORY: Change in mental status. Generalized weakness. Diarrhea. Right-sided abdominal pain . COMPARISON STUDY: CT scan of the chest, abdomen, and pelvis dated 07/18/2023. The chest x-ray dated 11/07/2022. TECHNIQUE: Following the IV administration of 118 of Optiray 320, CT angiogram of the chest is perfor med from the upper abdomen to the thoracic inlet utilizing the pulmonary embolus protocol. Images are reviewed in the axial, sagittal, coronal planes. 3-D MIPS images are created and assessed. Subsequen tly, CT scan of the abdomen and pelvis was performed from the lung bases to the proximal femora. Imag es are reviewed in the axial, sagittal, and coronal planes. IV contrast was administered without comp lication. A dose lowering technique was utilized adhering to the principles of ALARA. FINDINGS: CHEST: Thyroid: Atrophic and heterogeneous. Thoracic aorta: The thoracic aorta is normal in caliber and demonstrates standard 3-vessel arch anato my. The thoracic aorta is not well opacified. Pulmonary vasculature: The pulmonary trunk is normal in caliber. There are no filling defects identif ied in the main, lobar, or segmental pulmonary arteries to indicate pulmonary embolus. Heart: The heart is enlarged and without pericardial effusion. The coronary arteries are densely calc ified. Lungs and pleural spaces: There is bibasilar scarring/atelectasis. No airspace consolidation or pleur al effusion is identified. The trachea and central airways are clear. Mild diffuse peribronchial thic kening suggests bronchitis/reactive airway disease. Mediastinum: There is no mediastinal lymphadenopathy. Katerine: Clear. Axillae: There is no axillary lymphadenopathy. Bony thorax: The skeletal structures are osteopenic. No lytic or blastic lesions are identified. ABDOMEN AND PELVIS: Liver: The contrast-enhanced liver is enlarged, measuring 21 cm in length. Attenuation is diminished indicating steatosis. There is no intrahepatic biliary ductal dilatation. The hepatic veins and sandie l veins are patent. A 10 mm left lobe hypodensity on image #49 may represent a cyst or hemangioma but is too small for definitive characterization. Gallbladder: There are small calcified gallstones without CT evidence of acute cholecystitis. Spleen: Normal in size and attenuation. Pancreas: Unremarkable. Adrenal glands: Unremarkable. Kidneys: The contrast enhanced kidneys are normal in size and without hydronephrosis. The kidneys enh ance symmetrically. A circumaortic left renal vein is incidentally noted. Abdominal vasculature: The abdominal aorta is normal in course and caliber. Stomach and bowel: There is a small hiatal hernia. There is no bowel obstruction. The appendix is we ll-visualized and normal. Peritoneum: There is no intraperitoneal free air or abdominal ascites. There is a fat-containing umbi lical hernia. Lymphadenopathy: Prominent lymph nodes in the sandie hepatis and portacaval region measure up to 11 mm in short axis. Pelvic viscera: The bladder is decompressed around a Dean catheter and not well evaluated. The bladd er appears thick walled. The prostate gland is normal as visualized. Skeletal structures: The skeletal structures are osteopenic. There is lumbosacral spondylosis, with p ostsurgical change from L4-L5 spinal fusion. No lytic or blastic lesions are seen. IMPRESSION: 1. There is no evidence of pulmonary embolus in the main, lobar, or segmental pulmonary arteries. 2. There is no airspace consolidation or pleural effusion. 3. Cardiomegaly with advanced coronary artery atherosclerosis. 4. The bladder is decompressed around a Dean catheter and appears thick-walled. Correlate with clini kevin findings and urinalysis. 5. Hepatomegaly and hepatic steatosis. 6. Cholelithiasis. 7. Additional findings as above. ACT 112: Negative or not required by law. Electronically signed by: Mohsen Pal M.D. 09/07/2023 6:04 PM
[2023-09-07] MEDS ORDERED: HYDROCORTISONE SOD SUCCINATE 100 MG/2 ML VIAL IV STA ×2 (18:28→21:29)
[2023-09-07] MEDS ORDERED: HYDROCORTISONE SOD SUCCINATE 100 MG/2 ML VIAL ONE ×2 (18:36→21:26)
[2023-09-07] MEDS ORDERED: LACTATED RINGER'S 1,000 ML IV ONE (19:13)
[2023-09-07] MEDS ORDERED: ACETAMINOPHEN 1,000 MG/100 ML VIAL IV STA (19:14)
--- NOTE | 2023-09-07 19:23 | History & Physical Report ---
Date of Service September 07, 2023 Assessment & Plan (1) Hypotension: Plan: -Admit to the PCU on tele -Presented to the ED with generalized weakness, BL leg aching, diarrhea, and progressive dysphagia -Initially hypotensive at 74/53 but otherwise stable -S/P 2L NSS and a dose of cefepime in the ED with initial stabilization but BP fell back to 81/62 -At this time his hypotension is likely a combination of infection of unknown etiology at this time and need for stress dose steroids -CTA of the chest is negative for PE and pneumonia, CT of the abd/pelvis w/IV con is negative for bleeding or significant gastroenteritis -Low suspicion foir C. diff at this time as his WBC is WNL, is without abd pain, and has a benign abd exam -Given 100 mg IV Hydrocortisone stat on admission along with 1L LR -Patient is alert and oriented and in no acute distress -Hold antihypertensives for now -Can continue maintenance IV fluids if he cannot tolerate clears -Will continue IV hydrocortisone at 50 mg IV q6h for now -Will start him on Zosyn for now to cover multiple possible sources of infection including possible sinusitis on CT head, gastroenteritis with recent diarrhea, and UA concerning for possible UTI -Follow blood/urine cultures and stool studies -SQ heparin for DVT PPX with LUIS -Clear liquid diet until he is evaluated by speech -Fall and aspiration precautions -AM CBC, CMP, Mag, (2) Infection: Plan: -At this time the patient has multiple possible sources of infection -CT head shows signs consistent with acute sinusitis -Patient has been experiencing non-bloody diarrhea -UA today is concerning for possible UTI -S/P one dose of Cefepime in the ED -Will continue with Zosyn for now to cover possible sources -Follow infectious workup -Continue stress dose steroids (3) LUIS (acute kidney injury): Plan: -Cr at 1.87 today, baseline is near 1.1 -Likely pre-renal in nature as he is dehydrated on exam and was still taking antihypertensive and diuretics -Dean cath was initially placed in the ED as patient was much less alert and unstable on arrival -CT of the abd/pelvis is negative for signs of obstruction -Will need voiding trial prior to DC -Monitor intake/output and daily renal function -Continue IV fluids -Avoid nephrotoxic agents (4) Lactate blood increase: Plan: -Initial lactate of 3.1 on arrival, down to 2.2 after initial resuscitation -Likely a combination of infection and significant dehydration -Continue IV fluids and broad spectrum abx -Repeat lactate ordered, will follow (5) Diarrhea: Plan: -No recent abx use - states they only drink bottled water -Follow infectious workup -Continue zosyn for now (6) Dysphagia: Plan: -Has a hx of castrejon's esophagus with gastritis -[place] [facility], S/P EGD with balloon dilation with Dr. Scott in April -Initial improvement with dilation but symptoms have been progressively worsening -Currently tolerating liquids and most pills/caps -Per the clinic notes from GI, they recommended Esophageal Motility Study but the patient never scheduled -Clear liquid diet with aspiration precautions for now -Speech and GI consults have been placed -Will order Garfield Shakes TID for additional nutritional support with poor oral intake (7) Leg pain: Plan: -Complaining of BL leg aching -Has chronic leg pain but has been exacerbated since recent fall -Will obtain xrays of the BL knees for further evaluation -Continue home Gabapentin, decreasing from 100 mg TID to BID for now with LUIS (8) Barretts esophagus: Plan: -Continue protonix (9) Central hypothyroidism: Plan: -Continue levothyroxine (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 Thomas at the time of the admission History of Present Illness Chief Complaint: Generalized weakness, BL leg pain, progressive, dysphagia, diarrhea Primary Care Provider: Fadi Bhatt MD Jose is a 67 year old male with a PMH significant for Panhypopituitarism (On daily Hydrocortisone), castrejon's esophagus, dysphagia S/P EGD with balloon dilation with Dr. Scott on 04/29/23, DMII, HTN, hypothyroidism, and hyperlipidemia who presented to the [facility] ED on 09/07 with his for multiple complaints including Generalized weakness, increased dysphagia with decreased PO intake, BL leg pain, and diarrhea. The patient was noted to be hypotensive at 74/53 on arrival but otherwise stable. Labs were significant for a Cr of 1.87 (baseline of 1.1-1.2), initial lactate of 3.1, calcium of 10.8, CRP of 0.57, UA with cloudy appearance, 3+ blood, 10-30 WBC, > 30 RBC's, 10-30 hyaline casts, > 30 epithelial cells, and 1+ bacteria, and full respiratory biofire negative. CT of the head wo con was read as "1. There is no hemorrhage, mass effect, or evidence of acute territorial ischemia by CT criteria. 2. 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 3. Paranasal sinus disease as above. ". Chest xray was negative for acute disease. CT angiogram of the chest and CT of the abd/pelvis w/IV con were read as "1. There is no evidence of pulmonary embolus in the main, lobar, or segmental pulmonary arteries. 2. There is no airspace consolidation or pleural effusion. 3. Cardiomegaly with advanced coronary artery atherosclerosis. 4. The bladder is decompressed around a Dean catheter and appears thick-walled. Correlate with clinical findings and urinalysis. 5. Hepatomegaly and hepatic steatosis. 6. Cholelithiasis. 7. Additional findings as above.". Prior to admission the patient was given a dose of cefepime and 2L NSS. At the time of the exam the patient was sitting in bed and appears fatigued but in no acute distress with his standing bedside; history was obtained from both. His states that the patient has been dealing with progressive dysphagia since his last EGD with balloon dilation with Dr. Scott on 04/29/23. When asked, they explain that it has gotten to the point where he has difficulty swallowing solids and his pills, he can currently tolerate liquids. He will have early satiety and will occasionally vomit after eating. They explain that his symptoms had improved after balloon dilation but are now worse than prior to his last EGD. Approximately 2 days ago he fell walking in their driveway because his tripped on his untied shoelace. His witnessed the fall, they both confirm that he landed on his knees and outstretched hands. He did not hit his head or lose consciousness. He was able to get up quickly after and ambulate without issue. He has been having 2-3 episodes of non-bloody diarrhea over the past 3 days, they deny recent abx use. The patient states that his legs have been aching which has been aching since his fall. The patient denies recent fever, chest pain, SOB, cough, abd pain, nausea, new back pain, dysuria, hematuria, increased urinary frequency, melena, bloody BM's, and LE swelling. His states that the patient often does not complain when he is experiencing acute symptoms such as infections. We discussed code status, he is a full code and would want his to make medical decisions for him if he cannot make them himself. Please refer to Dr. Thomas's attestation for any changes to the treatment plan Allergies Allergy/AdvReac Type Severity Reaction Status Date / Time No Known Drug Allergies Allergy Verified 08/22/23 10:26 Home Medications Medication Instructions Recorded Confirmed Type tadalafil 10 mg tablet (Cialis) 10 mg PO DAILY PRN sexual activity 01/20/21 09/07/23 Rx #6 tabs pen needle, diabetic 32 gauge x #100 ea 05/30/21 09/07/23 Rx 5/32" (BD Ultra-Fine Elsa Pen Needle) blood sugar diagnostic (OneTouch #200 ea 07/09/22 09/07/23 Rx Verio test strips) lancets 30 gauge (OneTouch Delica #200 ea 07/09/22 09/07/23 Rx Plus Lancet) needle (disp) 18 G 18 gauge x 1 #100 ea 07/09/22 09/07/23 Rx 1/2" (BD PrecisionGlide Non-Sterile) syringe with needle, safety 3 mL #100 ea 07/09/22 09/07/23 Rx 25 gauge x 5/8" (Monoject Safety Syringes) meloxicam 15 mg tablet 15 mg PO QAM #90 tabs 09/28/22 09/07/23 Rx pantoprazole 40 mg tablet,delayed 40 mg PO QAM #90 tabs 09/28/22 09/07/23 Rx release alfuzosin 10 mg tablet,extended 10 mg PO QAM 04/22/23 09/07/23 History release 24 hr (Uroxatral) levothyroxine 175 mcg tablet 175 mcg PO QAM 04/22/23 09/07/23 History testosterone cypionate 100 mg/mL 100 mg IM Q7D 04/22/23 09/07/23 History intramuscular oil furosemide 40 mg tablet (Lasix) 40 mg PO QAM #90 tabs 07/15/23 09/07/23 Rx acetaminophen 650 mg 1,300 mg PO QAM 07/18/23 09/07/23 History tablet,extended release (Tylenol Arthritis Pain) atorvastatin 40 mg tablet 40 mg PO QAM 07/18/23 09/07/23 History gabapentin 100 mg capsule 100 mg PO TID 07/18/23 09/07/23 History hydrocortisone 10 mg tablet 10 mg PO UD 07/18/23 09/07/23 History scwhhfevzzwp-tiokzeum-ntwray 1 tab PO DAILY 07/18/23 09/07/23 History tablet (Multivitamin 50 Plus tablet) propranolol 20 mg tablet 20 mg PO BID 07/18/23 09/07/23 History metformin 1,000 mg tablet 1,000 mg PO BID 09/07/23 09/07/23 History 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 per -"better since he had his brain surgery" Hx of migraines Anemia pt and deny Erectile dysfunction GERD (gastroesophageal reflux disease) Obesity Hyperlipidemia Central stenosis of spinal canal Sciatica "Had surgery to fix" 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 Rheumatoid arthritis Degenerative disc disease History of esophageal stricture S/P DILATION Diabetes mellitus, type 2 Hypertension Surgical History [place] [facility] [place] [facility] [place]oscopy Hx of esophagogastroduodenoscopy dilation History of back surgery lumbar fusion History of total knee replacement LEFT History of tooth extraction History of blepharoplasty right and left Family History Mother Family history of diabetes mellitus Hypertension Father Cancer Brother Emphysema lung Social History Smoking Status: Never smoker Second Hand Exposure: No; Do You Dip or Chew Tobacco: No; Hx Alcohol Use: No Hx Substance Use: No Preferred Language: Italian Communication Ability: Effective Visual Impairment: No Limitations Hearing Ability: Normal Coating Line Worker Required: No Beliefs That Will Affect Care: None marital status: Current Living Situation: Spouse current occupational status: employed Other Information That Helps Us Care for You: No Feels Safe at Home: Yes Safety Concerns: Feels Safe At This Time Assistive Devices: None Physical Exam Physical Exam: Physical Exam: General: In no acute distress, fatigued but non-toxic appearing HEENT: Normocephalic, atraumatic, negative tenderness to palpation of the frontal and maxillary sinuses, no scleral icterus, pupils around round, symmetrical, and reactive to light, dry mucus membranes, trachea midline, no thyromegaly Chest/Pulm: No respiratory distress, symmetrical chest expansion, clear breath sounds throughout Cardiac: RRR, no murmurs noted Abdomen: Negative for ascites and bruising, normoactive bowel sounds, soft, non-tender to palpation throughout Musculoskeletal: No acute trauma noted on the face, head, neck, cervical, thoracic, lumbar spine, and BL upper extremities. Patient with non-bleeding skin abrasions to the BL knees, able to move BL LE's without limitation Extremities: Radial, dorsalis pedis, and posterior tibial pulses are intact and symmetrical, no edema noted in the BL LE's Skin: As described above Neuro: Alert and oriented to person, place, month, year, and president, no focal defects, CN II-XII tested and intact, no tremors noted Psych: No acute distress, calm and cooperative during the exam Results & Data Results & Data Vital Signs (Past 12 Hours) Vital Signs Temp Pulse Resp BP Pulse Ox O2 Del Method 09/07/23 19:16 77 09/07/23 17:16 71 16 81/62 L 96 09/07/23 17:10 74 20 09/07/23 17:00 95/59 L 09/07/23 16:40 74 18 94/68 L 09/07/23 16:25 69 09/07/23 16:15 68 22 100/58 L 09/07/23 16:08 75 33 H 91/73 L 09/07/23 15:45 70 24 102/59 L 09/07/23 15:18 36.7 C 80 16 74/53 L 95 Room Air Laboratory Results Abnormal lab results 09/07/23 09/07/23 09/07/23 Range/Units 15:35 15:41 15:54 RBC 4.14 L (4.70-6.10) M/uL Hgb 12.5 L (14.0-18.0) g/dl POC Hgb 12.2 L (14.0-18.0) g/dl Hct 36.6 L (42.0-52.0) % POC Hct 36 L (42-52) % Bulloch # (Auto) 0.62 H (0.11-0.59) K/uL PT 12.4 H (9.0-12.0) Seconds VBG pH 7.27 L (7.36-7.41) VBG pCO2 52 H (38-50) mmHg POC BUN 19 H (7-18) mg/dl Creatinine 1.87 H (0.6-1.4) mg/dl POC Creatinine 2.0 H (0.6-1.3) mg/dl Glucose 172 H (70-99(Fasting)) mg/dl POC Glucose (other) 172 H (70-99) mg/dl Lactate 3.1 H* (0.4-2.0) mmol/L Calcium 10.8 H (8.6-10.3) mg/dl C-Reactive Protein 0.57 H (0-0.5) mg/dl Urine Appearance (Clear) Ur Specific Chester (1.000-1.030) Urine Protein (Negative) Urine Blood (Negative) Urine WBC (Auto) (0-5) /hpf Urine RBC (Auto) (0-4) /hpf U Hyaline Cast (Auto) (0-5) /lpf U Epithel Cells (Auto) (0-5) /lpf Urine Bacteria (Auto) (Negative) 09/07/23 09/07/23 Range/Units 17:26 17:50 RBC (4.70-6.10) M/uL Hgb (14.0-18.0) g/dl POC Hgb (14.0-18.0) g/dl Hct (42.0-52.0) % POC Hct (42-52) % Bulloch # (Auto) (0.11-0.59) K/uL PT (9.0-12.0) Seconds VBG pH (7.36-7.41) VBG pCO2 (38-50) mmHg POC BUN (7-18) mg/dl Creatinine (0.6-1.4) mg/dl POC Creatinine (0.6-1.3) mg/dl Glucose (70-99(Fasting)) mg/dl POC Glucose (other) (70-99) mg/dl Lactate 2.2 H* (0.4-2.0) mmol/L Calcium (8.6-10.3) mg/dl C-Reactive Protein (0-0.5) mg/dl Urine Appearance Cloudy A (Clear) Ur Specific Chester 1.042 H (1.000-1.030) Urine Protein 2+ H (Negative) Urine Blood 3+ H (Negative) Urine WBC (Auto) 10-30 H (0-5) /hpf Urine RBC (Auto) >30 H (0-4) /hpf U Hyaline Cast (Auto) 10-30 H (0-5) /lpf U Epithel Cells (Auto) >30 H (0-5) /lpf Urine Bacteria (Auto) 1+ H (Negative) Diagnostic Findings Chest X-Ray 09/07/23 15:37 SINGLE VIEW CHEST CLINICAL HISTORY: Sepsis. FINDINGS: An AP, portable, upright chest radiograph is compared to chest x-ray and chest CT dated 07/18/2023. The examination is degraded by portable technique and apical lordotic positioning. The heart is enlarged. The pulmonary vasculature is noncongested. Chronic interstitial thickening similar to previous. There is bibasilar scarring/atelectasis. The lungs and pleural spaces are otherwise clear. No pneumothorax is seen. The skeletal structures are osteopenic. The bony thorax is grossly intact. IMPRESSION: Cardiomegaly with no active disease in the chest. ACT 112: Negative or not required by law. Electronically signed by: Mohsen Pal M.D. 09/07/2023 5:48 PM Abdomen/Pelvis CT 09/07/23 15:43 CT ANGIOGRAM OF THE CHEST; CT SCAN OF THE ABDOMEN AND PELVIS WITH IV CONTRAST CLINICAL HISTORY: Change in mental status. Generalized weakness. Diarrhea. Right-sided abdominal pain. COMPARISON STUDY: CT scan of the chest, abdomen, and pelvis dated 07/18/2023. The chest x-ray dated 09/07/2023. TECHNIQUE: Following the IV administration of 118 of Optiray 320, CT angiogram of the chest is performed from the upper abdomen to the thoracic inlet utilizing the pulmonary embolus protocol. Images are reviewed in the axial, sagittal, coronal planes. 3-D MIPS images are created and assessed. Subsequently, CT scan of the abdomen and pelvis was performed from the lung bases to the proximal femora. Images are reviewed in the axial, sagittal, and coronal planes. IV contrast was administered without complication. A dose lowering technique was utilized adhering to the principles of ALARA. FINDINGS: CHEST: Thyroid: Atrophic and heterogeneous. Thoracic aorta: The thoracic aorta is normal in caliber and demonstrates standard 3-vessel arch anatomy. The thoracic aorta is not well opacified. Pulmonary vasculature: The pulmonary trunk is normal in caliber. There are no filling defects identified in the main, lobar, or segmental pulmonary arteries to indicate pulmonary embolus. Heart: The heart is enlarged and without pericardial effusion. The coronary arteries are densely calcified. Lungs and pleural spaces: There is bibasilar scarring/atelectasis. No airspace consolidation or pleural effusion is identified. The trachea and central airways are clear. Mild diffuse peribronchial thickening suggests bronchitis/reactive airway disease. Mediastinum: There is no mediastinal lymphadenopathy. Katerine: Clear. Axillae: There is no axillary lymphadenopathy. Bony thorax: The skeletal structures are osteopenic. No lytic or blastic lesions are identified. ABDOMEN AND PELVIS: Liver: The contrast-enhanced liver is enlarged, measuring 21 cm in length. Attenuation is diminished indicating steatosis. There is no intrahepatic biliary ductal dilatation. The hepatic veins and portal veins are patent. A 10 mm left lobe hypodensity on image #49 may represent a cyst or hemangioma but is too small for definitive characterization. Gallbladder: There are small calcified gallstones without CT evidence of acute cholecystitis. Spleen: Normal in size and attenuation. Pancreas: Unremarkable. Adrenal glands: Unremarkable. Kidneys: The contrast enhanced kidneys are normal in size and without hydronephrosis. The kidneys enhance symmetrically. A circumaortic left renal vein is incidentally noted. Abdominal vasculature: The abdominal aorta is normal in course and caliber. Stomach and bowel: There is a small hiatal hernia. There is no bowel obstruction. The appendix is well-visualized and normal. Peritoneum: There is no intraperitoneal free air or abdominal ascites. There is a fat-containing umbilical hernia. Lymphadenopathy: Prominent lymph nodes in the sandie hepatis and portacaval region measure up to 11 mm in short axis. Pelvic viscera: The bladder is decompressed around a Dean catheter and not well evaluated. The bladder appears thick walled. The prostate gland is normal as visualized. Skeletal structures: The skeletal structures are osteopenic. There is lumbosacral spondylosis, with postsurgical change from L4-L5 spinal fusion. No lytic or blastic lesions are seen. IMPRESSION: 1. There is no evidence of pulmonary embolus in the main, lobar, or segmental pulmonary arteries. 2. There is no airspace consolidation or pleural effusion. 3. Cardiomegaly with advanced coronary artery atherosclerosis. 4. The bladder is decompressed around a Dean catheter and appears thick-walled. Correlate with clinical findings and urinalysis. 5. Hepatomegaly and hepatic steatosis. 6. Cholelithiasis. 7. Additional findings as above. ACT 112: Negative or not required by law. Electronically signed by: Mohsen Pal M.D. 09/07/2023 6:04 PM Chest CTA 09/07/23 15:43 CT ANGIOGRAM OF THE CHEST; CT SCAN OF THE ABDOMEN AND PELVIS WITH IV CONTRAST CLINICAL HISTORY: Change in mental status. Generalized weakness. Diarrhea. Right-sided abdominal pain. COMPARISON STUDY: CT scan of the chest, abdomen, and pelvis dated 07/18/2023. The chest x-ray dated 09/07/2023. TECHNIQUE: Following the IV administration of 118 of Optiray 320, CT angiogram of the chest is performed from the upper abdomen to the thoracic inlet utilizing the pulmonary embolus protocol. Images are reviewed in the axial, sagittal, coronal planes. 3-D MIPS images are created and assessed. Subsequently, CT scan of the abdomen and pelvis was performed from the lung bases to the proximal femora. Images are reviewed in the axial, sagittal, and coronal planes. IV contrast was administered without complication. A dose lowering technique was utilized adhering to the principles of ALARA. FINDINGS: CHEST: Thyroid: Atrophic and heterogeneous. Thoracic aorta: The thoracic aorta is normal in caliber and demonstrates standard 3-vessel arch anatomy. The thoracic aorta is not well opacified. Pulmonary vasculature: The pulmonary trunk is normal in caliber. There are no filling defects identified in the main, lobar, or segmental pulmonary arteries to indicate pulmonary embolus. Heart: The heart is enlarged and without pericardial effusion. The coronary arteries are densely calcified. Lungs and pleural spaces: There is bibasilar scarring/atelectasis. No airspace consolidation or pleural effusion is identified. The trachea and central airways are clear. Mild diffuse peribronchial thickening suggests bronchitis/reactive airway disease. Mediastinum: There is no mediastinal lymphadenopathy. Katerine: Clear. Axillae: There is no axillary lymphadenopathy. Bony thorax: The skeletal structures are osteopenic. No lytic or blastic lesions are identified. ABDOMEN AND PELVIS: Liver: The contrast-enhanced liver is enlarged, measuring 21 cm in length. Attenuation is diminished indicating steatosis. There is no intrahepatic biliary ductal dilatation. The hepatic veins and portal veins are patent. A 10 mm left lobe hypodensity on image #49 may represent a cyst or hemangioma but is too small for definitive characterization. Gallbladder: There are small calcified gallstones without CT evidence of acute cholecystitis. Spleen: Normal in size and attenuation. Pancreas: Unremarkable. Adrenal glands: Unremarkable. Kidneys: The contrast enhanced kidneys are normal in size and without hydronephrosis. The kidneys enhance symmetrically. A circumaortic left renal vein is incidentally noted. Abdominal vasculature: The abdominal aorta is normal in course and caliber. Stomach and bowel: There is a small hiatal hernia. There is no bowel obstruction. The appendix is well-visualized and normal. Peritoneum: There is no intraperitoneal free air or abdominal ascites. There is a fat-containing umbilical hernia. Lymphadenopathy: Prominent lymph nodes in the sandie hepatis and portacaval region measure up to 11 mm in short axis. Pelvic viscera: The bladder is decompressed around a Dean catheter and not well evaluated. The bladder appears thick walled. The prostate gland is normal as visualized. Skeletal structures: The skeletal structures are osteopenic. There is lumbosacral spondylosis, with postsurgical change from L4-L5 spinal fusion. No lytic or blastic lesions are seen. IMPRESSION: 1. There is no evidence of pulmonary embolus in the main, lobar, or segmental pulmonary arteries. 2. There is no airspace consolidation or pleural effusion. 3. Cardiomegaly with advanced coronary artery atherosclerosis. 4. The bladder is decompressed around a Dean catheter and appears thick-walled. Correlate with clinical findings and urinalysis. 5. Hepatomegaly and hepatic steatosis. 6. Cholelithiasis. 7. Additional findings as above. ACT 112: Negative or not required by law. Electronically signed by: Mohsen Pal M.D. 09/07/2023 6:[address] 09/07/23 15:43 CT SCAN OF THE BRAIN WITHOUT IV CONTRAST CLINICAL HISTORY: Change in mental status. COMPARISON STUDY: CT of the brain dated 07/19/2023. MRI of the brain dated 10/12/2021. TECHNIQUE: Unenhanced axial CT scan of the brain is performed from the vertex to the skull base. A dose lowering technique was utilized adhering to the principl es of YUE. CT DOSE: 2850.04 mGy.cm FINDINGS: Brain parenchyma: A 13 mm hyperdensity within the deep left frontal lobe white matter is consistent with the patient's known cavernoma. There is age-related involutional change noting minimal subcortical and periventricular microangiopathic disease. There is no hemorrhage, mass effect, or evidence of acute territorial ischemia by CT criteria. Davis-white matter differentiation is preserved. No extra-axial fluid collection is seen. Ventricles, sulci, cisterns: Prominent secondary to involutional change. Intracranial vasculature: There is atherosclerotic calcification of the cavernous carotid and vertebral arteries. Calvarium: Postoperative change is noted in the right frontal bone. No destructive calvarial lesion is identified. Sinuses and mastoids: There is moderate to severe mucosal thickening within the frontal and ethmoid sinuses. Moderate mucosal thickening is noted in the right sphenoid sinus. The mastoid air cells are well pneumatized. Orbits: The bony orbits are grossly intact. IMPRESSION: 1. There is no hemorrhage, mass effect, or evidence of acute territorial ischemia by CT criteria. 2. 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 3. Paranasal sinus disease as above. ACT 112: Negative or not required by law. Electronically signed by: Mohsen Pal M.D. 09/07/2023 4:36 PM ECG Additional Comments: Sinus rhythm with Premature supraventricular complexes Left axis deviation Right bundle branch block Abnormal ECG When compared with ECG of 20-JUL-2023 06:30, Premature supraventricular complexes are now Present T wave inversion no longer evident in Lateral leads Code Status & VTE Plan Code Status Full code VTE Prophylaxis Plan VTE Prophylaxis will be ordered: Yes Supervising Physician Co-Signing Physician Notes I personally saw and examined the patient. I verified all card points and agree with Otis Adamson PA-C with the following exceptions and/or additions: 67 year old male presents to the ER with generalized weakness, bilateral leg pain, dysphagia, decreased oral intake. No fever, chills, respiratory or urinary symptoms. Notably having diarrhea without nausea, vomiting. O/E A&Ox3, HS RRR, no murmurs, Chest CTAB, Abdo SNT, no CVA tenderness A/P UTI - follow up urine and blood cultures, empiric Zosyn Hypotension - infection +/- hypopituitarism +/- poor oral intake Diarrhea - stool PCR, c. diff PCR Doubtful sinusitis given no symptoms of nasal congestion or sinus pain Esophageal dysphagia - consult gastroenterology Panhypopituitarism - Hydrocortisone 100mg IV now then 50mg q6h PG Care Time/CCT Total # of Minutes Spent Total Time Spent with Patient: Total time spent is greater than 50% in coordination of care (as documented) at patient's floor/unit and/or counseling patient: C[place] [address] INT INP/OBS CARE 2/55MIN Patient Type Established Medical Decision Making Moderate Complexity Diagnoses Hypotension I95.9 Infection B99.9 LUIS (acute kidney injury) N17.9 Lactate blood increase R79.89 Diarrhea R19.7 Diarrhea type: unspecified type Dysphagia R13.10 Leg pain M79.606 Barretts esophagus K22.70 Central hypothyroidism E03.8 Panhypopituitarism E23.0 Type 2 diabetes mellitus with other specified complication, without long-term current use of insulin E11.69 Diabetes mellitus complication status: with other specified complication Diabetes mellitus terminal superintendent insulin use: without halfway use (5) Diarrhea Diarrhea type: unspecified type Qualified Code(s): R19.7 - Diarrhea, unspecified (11) Diabetes mellitus, type 2 Diabetes mellitus complication status: with other specified complication Diabetes mellitus terminal superintendent insulin use: without terminal superintendent use Qualified Code(s): E11.69 - Type 2 diabetes mellitus with other specified complication
[2023-09-07] MEDS ORDERED: PIPERACILLIN/TAZOBACTAM 4.5 GM/100 ML BAG IV ONE (19:50)
--- NOTE | 2023-09-07 20:37 | XRay Report ---
LEFT KNEE 2 VIEWS CLINICAL HISTORY: Fall. Left knee pain. FINDINGS: AP and crosstable lateral views of the left knee are compared to study dated 01/06/2018. The skeletal structures are osteopenic. No fracture is seen. A left knee arthroplasty is in near anatomi c alignment. No periprosthetic lucency is identified. There has been undersurface remodeling of the p atella. There is a joint effusion. Small calcified joint bodies are noted. Prepatellar soft tissue sw elling is observed. A calcified fabella is incidentally noted. IMPRESSION: 1. Soft tissue swelling and joint effusion with no acute bony abnormality identified. 2. A left knee arthroplasty is in near anatomic alignment. Electronically signed by: Mohsen Pal M.D. 09/07/2023 8:35 PM
--- NOTE | 2023-09-07 20:38 | XRay Report ---
RIGHT KNEE 2 VIEWS CLINICAL HISTORY: Fall. Right knee pain. FINDINGS: AP and crosstable lateral views of the right knee are compared to study dated 01/06/2018. Th e skeletal structures are osteopenic. No fracture is seen. There is mild tricompartmental degenerativ e joint space narrowing. A calcified fabella is incidentally noted. No joint effusion is identified. There is prepatellar soft tissue swelling. IMPRESSION: Soft tissue swelling with no radiographic evidence of acute fracture. Electronically signed by: Mohsen Pal M.D. 09/07/2023 8:36 PM
[2023-09-07] MEDS ORDERED: DEXTROSE 50% 50 ML SYRINGE IV PRN (20:41)
[2023-09-07] MEDS ORDERED: CARBOHYDRATES FOR HYPOGLYCEMIA PO PRN (20:41)
[2023-09-07] MEDS ORDERED: GLUCAGON FOR INJ 1 MG VIAL SQ PRN (20:41)
[2023-09-07] MEDS ORDERED: GLUCOSE 10 TAB/TUBE PO PRN (20:41)
[2023-09-07] MEDS ORDERED: GLUCOSE 40% GEL 15 GM TUBE PO PRN (20:41)
[2023-09-07] MEDS ORDERED: traMADol HCL 50 MG TABLET PO PRN (21:21)
[2023-09-07] MEDS: INSULIN ASPART PER UNIT CHARGE SC SCH (21:27)
[2023-09-07] MEDS ORDERED: HYDROCORTISONE SOD SUCCINATE 100 MG/2 ML VIAL IV SCH (22:00)
[2023-09-07] MEDS: HEPARIN SOD 5,000 UNIT/0.5 ML VIAL SQ SCH (23:54)
[2023-09-07] MEDS: GABAPENTIN 100 MG CAP PO SCH (23:54)
[2023-09-08] MEDS: PIPERACILLIN/TAZOBACTAM 4.5 GM in DEXTROSE 5% MINI-B 100 ML IV SCH ×2 (02:01→10:13)
[2023-09-08] MEDS: HEPARIN SOD 5,000 UNIT/0.5 ML VIAL SQ SCH ×3 (05:30→21:17)
[2023-09-08] MEDS: HYDROCORTISONE SOD 50 MG in SYRINGE 0 ML IV SCH ×3 (05:30→19:11)
[2023-09-08] MEDS: LEVOTHYROXINE SODIUM 175 MCG TABLET PO SCH (05:31)
[2023-09-08] MEDS ORDERED: HYDROCORTISONE SOD SUCCINATE 100 MG/2 ML VIAL IV SCH (06:00)
[2023-09-08 06:10] LABS: Basophils # (auto) 0.02 K/uL (0.00-0.20); Basophils % (auto) 0.3 %; Hematocrit (blood only) 29.9 % (42.0-52.0); Hemoglobin 10.4 g/dl (14.0-18.0); Immature Granulocytes # (auto) 0.01 K/uL (0.01-0.20); Immature Granulocytes % (auto) 0.2 %; Lymphocytes # (auto) 1.28 K/uL (1.20-3.40); Mean Corpuscular Hemoglobin 30.2 pg (25.0-34.0); Mean Corpuscular Hgb Conc 34.8 g/dL (32.0-36.0); Mean Corpuscular Volume 86.9 fL (80.0-100.0); Mean Platelet Volume 11.6 fL (9.4-12.4); Monocytes # (auto) 0.35 K/uL (0.11-0.59); Neutrophils # (auto) 4.16 K/uL (1.40-6.50); Neutrophils % (auto) 71.5 %; Platelet Count 150 K/uL (130-400); RDW Coefficient of Variation 12.9 % (11.5-14.5); Red Blood Count 3.44 M/uL (4.70-6.10); White Blood Count 5.82 K/ul (4.8-10.8)
[2023-09-08 06:28] LABS: Albumin Globulin Ratio 1.3 (0.9-2); Albumin Level 3.6 gm/dl (3.4-5.0); Bilirubin,Total 0.8 mg/dl (0.2-1.0); Calcium 9.6 mg/dl (8.6-10.3); Creatinine Clr Calc Pharmacy 40.7 ml/min; Est GFR (African American) 39.4 ml/min; Globulin 2.7 gm/dl (2.5-4.0); Magnesium 1.5 mg/dl (1.7-2.4); Potassium 4.4 mmol/L (3.5-5.1); Total Protein 6.3 gm/dl (6.0-8.3)
--- NOTE | 2023-09-08 07:25 | Hospitalist Progress Note ---
Date of Service September 08, 2023 Assessment & Plan (1) Hypotension: (2) Infection: (3) LUIS (acute kidney injury): (4) Lactate blood increase: (5) Diarrhea: (6) Dysphagia: (7) Leg pain: (8) Barretts esophagus: (9) Central hypothyroidism: (10) Panhypopituitarism: (11) Diabetes mellitus, type 2: Plan Jose is a 67 year old male with a PMH significant for Panhypopituitarism , castrjeon's esophagus, dysphagia, DMII, HTN, hypothyroidism, and hyperlipidemia Here due to generalized weakness, increased fatigue, increased dysphagia with decreased PO intake, BL leg pain and diarrhea. Hypotension: -Hypotension in ER: 74/53 resolved after 2L NSS, s/p stress dose steroids 100 mg IV hydrocortisone -low intake vs UTI vs hx of hypopituitarism -No leukocytosis -CTA chest: negative for PE -CT abdomen/pelvis: no bleeding, no obstruction - Home anti hypertensive hold -Continue hydrocortisone 50 mg Q6H Dysphagia: Hx of Esophageal stricture hx of Castrejon esophagus -Follows with [facility], S/P EGD with balloon dilation with Dr. Scott in April -Initial improvement with dilation but symptoms have been progressively worsening -Currently tolerating liquids and most pills/caps -Clear liquid diet with aspiration precautions -Speech consulted -Continue Garfield Shakes TID -Continue Pantoprazole 40 mg AM -GI consulted: - Video swallow study tomorrow -No EGD UTI -WBC, wnl, lactate increased on ER, -IV Zosyn -Pending urine culture, blood culture, and stool studies LUIS (acute kidney injury): -Cr at 2.00 today, baseline is near 1.1 -Likely pre-renal due to dehydration -Collins cath was initially placed in the ED, removed today -Continue IV fluids -Avoid nephrotoxic agents Diarrhea: -No recent abx use -Follow infectious workup -No diarrhea since admission Leg pain: -Complaining of BL leg aching -Has chronic leg pain but has been exacerbated since recent fall -Xrays: negative for any acute bony abdornmality -Continue home Gabapentin, decreasing from 100 mg TID to BID for now with LUIS Barretts esophagus: -Continue protonix Central hypothyroidism: -Continue levothyroxine Panhypopituitarism: -Continue home hydrocortisone with stress dosed steroids Diabetes mellitus, type 2: -Hold metformin -Monitor BSG ACHS, goal is 110-140 -Start CF 50 ACHS for now with poor oral intake -Will hold basal insulin tonight to avoid hypoglycemia -Clear liquid diet -Adjust regimen as needed Disposition: PCU/ Telemetry DVT : Heparin 5,000 units SQ Q6H Diet: Clear liquid Admission and Anticipated Discharge Date Admission Date: September 07, 2023 Supervising Physician Co-Signing Physician Notes Resident Physician Supervision Note: I independently interviewed and examined the patient and verified the card history and physical, reviewed labs and image studies and agree with resident findings and care plan. Here with weakness, recurrence of dysphagia after recent esophageal stricture dilation, poor PO intake and diarrhea. Was hypotensive in ED and received stress dose steroids. h/o Hypopituitarism. Feeling much better this am. A&Ox3, Heart regular. Lung CTA Hypovolemic shock in setting of decreased PO intake/diarrhea with adrenal insufficiency -responsive to IVF and Stress dose steroids - continue LUIS- creatinine 1.0 at baseline. 1.8 on admission. 2.0 today despite fluid resuscitation. Non-oliguric. UA >30 RBC and hyaline case. -recheck bmp. -check renal ultrasound. -no concern of obstruction. Esophageal dysphagia - consulted GI - video swallow in am. PPI daily. Panhypopituitarism - Hydrocortisone 100mg IV now then 50mg q6h Diarrhea - no BM since admission. Pending tests - stool PCR, c. diff PCR UTI - ruled out. urine and blood cx neg. abx d/[place]. Heparin nursing to D/c [place] per protocol Tata Garcia is a 67 year old male with a PMH significant for Panhypopituitarism (On daily Hydrocortisone), castrejon's esophagus, dysphagia S/P EGD with balloon dilation with Dr. Scott on 04/29/23, DMII, HTN, hypothyroidism, and hyperlipidemia Here due to generalized weakness, increased fatigue, increased dysphagia with decreased PO intake, BL leg pain and diarrhea. refers progressive dysphagia since his last EGD with balloon dilatation on 04/[address] Scott. Difficult swallowing solids and his pills, tolerated liquids. Early satiety and occasionally vomit after eating. Had the symptoms before EGD but are now worse. He had been having non-bloody diarrhea over the last 3 days. The patient denies recent fever, chest pain, SOB, cough, abd pain, nausea, new back pain, dysuria, hematuria, increased urinary frequency, melena, bloody BM's, and LE swelling. Review of Systems Review of Systems: as per HPI Physical Exam Physical Exam: Constitutional: WD/WN, vitals as above Respiratory: normal respiratory effort, lungs clear to auscultation Cardiovascular: RRR, no murmur, no edema Gastrointestinal (Abdomen): normal bowel sounds, soft, nontender, no hepatosplenomegaly Skin: no rashes, warm and dry Results & Data Results & Data Vital Signs (Past 12 Hours) Vital Signs Temp Pulse Pulse Resp BP BP Pulse Ox 09/08/23 03:51 36.9 C 70 18 98/60 L 94 09/07/23 23:15 76 20 108/64 94 09/07/23 23:15 37.1 C 70 22 108/64 95 09/07/23 23:14 09/07/23 23:11 09/07/23 21:30 69 22 93 09/07/23 21:30 105/63 09/07/23 21:15 107/66 09/07/23 21:15 71 22 93 09/07/23 21:00 108/69 09/07/23 21:00 72 17 87 L 09/07/23 20:45 100/62 09/07/23 20:45 71 20 95 09/07/23 20:30 111/69 09/07/23 20:30 74 14 96 09/07/23 20:15 97/67 L 09/07/23 20:15 20 95 09/07/23 20:00 95/60 L 09/07/23 20:00 68 19 94 09/07/23 19:45 93/54 L 09/07/23 19:45 76 17 94 09/07/23 19:30 82/46 L 09/07/23 19:30 75 13 93 Pulse Ox O2 Del Method O2 Del Method 09/08/23 03:51 Room Air 09/07/23 23:15 Room Air 09/07/23 23:15 Room Air 09/07/23 23:14 Room Air 09/07/23 23:11 94 Room Air 09/07/23 21:30 09/07/23 21:30 09/07/23 21:15 09/07/23 21:15 09/07/23 21:00 09/07/23 21:00 09/07/23 20:45 09/07/23 20:45 09/07/23 20:30 09/07/23 20:30 09/07/23 20:15 09/07/23 20:15 09/07/23 20:00 09/07/23 20:00 09/07/23 19:45 09/07/23 19:45 09/07/23 19:30 09/07/23 19:30 Resident Activity Tracking Resident Involvement: Resident Care Provided Care Provided: Adult Hospital Medicine (5) Diarrhea Diarrhea type: unspecified type Qualified Code(s): R19.7 - Diarrhea, unspecified (11) Diabetes mellitus, type 2 Diabetes mellitus complication status: with other specified complication Diabetes mellitus fpc insulin use: without exterminator termite use Qualified Code(s): E11.69 - Type 2 diabetes mellitus with other specified complication
[2023-09-08] MEDS: GABAPENTIN 100 MG CAP PO SCH ×2 (07:40→21:17)
[2023-09-08] MEDS: PANTOprazole 40 MG TAB PO SCH (07:41)
[2023-09-08] MEDS: ATORVASTATIN 40 MG TAB PO SCH (07:41)
[2023-09-08] MEDS: INSULIN ASPART PER UNIT CHARGE SC SCH ×4 (07:42→21:16)
[2023-09-08] MEDS ORDERED: LACTATED RINGER'S 1,000 ML IV SCH (08:00)
[2023-09-08] MEDS: MAGNESIUM SULFATE / D5W 1 GM/100 ML BAG IV SCH ×2 (08:27→10:13)
[2023-09-08] MEDS ORDERED: HYDROCORTISONE 10 MG TAB PO SCH ×2 (09:00→10:00)
--- NOTE | 2023-09-08 13:00 | Gastrointestinal Consultation ---
Date of Consultation September 08, 2023 Assessment & Plan (1) LUIS (acute kidney injury): (2) Hypotension: (3) Urinary tract infection: (4) Dysphagia: Continue current therapy and supportive care as per the primary team Video swallow study tomorrow Continue Pantoprazole 40 mg by mouth each morning. No role for EGD in this setting as he is acutely ill, and just underwent EGD for same complaint in the past 4 months. History of Present Illness Reason for Consultation: Dysphagia Attending Physician: Mel Mae MD History of Present Illness Jose Amado is a 67 yo CM with an extensive PMHx who presented to the ER this AM with complaints of dysphagia, general malaise, and diarrhea. He was noted to be hypotensive in the ER as well. He states that he feels that he has difficulty swallowing and describes this as being from his mouth to his proximal esophagus. He did undergo an EGD by Dr. Scott in April for dysphagia, and although nothing was physically seen, he did undergo an empiric dilation to 16 mm without any notable change, he also had unremarkable biopsies of the esophagus though he does have a history of Nascimento's esophagus. His lab work in the ER showed an H/H of 12.5/36.6. He was also noted to have evidence of an LUIS with a Cr of 1.87. His UA showed a possible UTI and a CT head showed findings of a sinusitis. He was subsequently admitted and given IVF and IV abx. At the time I saw him, he states that he is feeling somewhat better, though, "I just can't swallow. He denies any fevers, chills, nausea, vomiting, hematemesis, melena or hematochezia. He has no further complaints. Allergies Allergy/AdvReac Type Severity Reaction Status Date / Time No Known Drug Allergies Allergy Verified 08/22/23 10:26 Home Medications Medication Instructions Recorded Confirmed Type tadalafil 10 mg tablet (Cialis) 10 mg PO DAILY PRN sexual activity 01/20/21 09/07/23 Rx #6 tabs pen needle, diabetic 32 gauge x #100 ea 05/30/21 09/07/23 Rx 5/32" (BD Ultra-Fine Elsa Pen Needle) blood sugar diagnostic (OneTouch #200 ea 07/09/22 09/07/23 Rx Verio test strips) lancets 30 gauge (OneTouch [employer] #200 ea 07/09/22 09/07/23 Rx Plus Lancet) needle (disp) 18 G 18 gauge x 1 #100 ea 07/09/22 09/07/23 Rx 1/2" (BD PrecisionGlide Non-Sterile) syringe with needle, safety 3 mL #100 ea 07/09/22 09/07/23 Rx 25 gauge x 5/8" (Monoject Safety Syringes) meloxicam 15 mg tablet 15 mg PO QAM #90 tabs 09/28/22 09/07/23 Rx pantoprazole 40 mg tablet,delayed 40 mg PO QAM #90 tabs 09/28/22 09/07/23 Rx release alfuzosin 10 mg tablet,extended 10 mg PO QAM 04/22/23 09/07/23 History release 24 hr (Uroxatral) levothyroxine 175 mcg tablet 175 mcg PO QAM 04/22/23 09/07/23 History testosterone cypionate 100 mg/mL 100 mg IM Q7D 04/22/23 09/07/23 History intramuscular oil furosemide 40 mg tablet (Lasix) 40 mg PO QAM #90 tabs 07/15/23 09/07/23 Rx acetaminophen 650 mg 1,300 mg PO QAM 07/18/23 09/07/23 History tablet,extended release (Tylenol Arthritis Pain) atorvastatin 40 mg tablet 40 mg PO QAM 07/18/23 09/07/23 History gabapentin 100 mg capsule 100 mg PO TID 07/18/23 09/07/23 History hydrocortisone 10 mg tablet 10 mg PO UD 07/18/23 09/07/23 History [id number]-nmlgqrpl-wedhlj 1 tab PO DAILY 07/18/23 09/07/23 History tablet (Multivitamin 50 Plus tablet) propranolol 20 mg tablet 20 mg PO BID 07/18/23 09/07/23 History metformin 1,000 mg tablet 1,000 mg PO BID 09/07/23 09/07/23 History Patient History Medical History (Updated 09/08/23 @ 13:06 by Haim Paula, DO) Dysphagia Hx of peptic ulcer x3 Dysesthesia Diabetic peripheral 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 adrenal insufficiency hx Growth hormone deficiency Panhypopituitarism Hypogonadotropic hypogonadism in male Bitemporal hemianopsia per -"better since he had his brain surgery" Hx of migraines Anemia pt and deny Erectile dysfunction GERD (gastroesophageal reflux disease) Obesity Hyperlipidemia Central stenosis of spinal canal Sciatica "Had surgery to fix" 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 Rheumatoid arthritis Degenerative disc disease History of esophageal stricture S/P DILATION Diabetes mellitus, type 2 Hypertension Surgical History [place]2020[place] [facility] [place] Hx of esophagogastroduodenoscopy dilation History of back surgery lumbar fusion History of total knee replacement LEFT History of tooth extraction History of blepharoplasty right and left Family History Mother Family history of diabetes mellitus Hypertension Father Cancer Brother Emphysema lung Social History Smoking Status: Never smoker Second Hand Exposure: No; Do You Dip or Chew Tobacco: No; Hx Alcohol Use: No Hx Substance Use: No Preferred Language: Romanian Communication Ability: Effective Visual Impairment: No Limitations Hearing Ability: Normal Boarding Kennel Or Cattery Operator Required: No Beliefs That Will Affect Care: None marital status: Current Living Situation: Spouse current occupational status: employed Other Information That Helps Us Care for You: No Feels Safe at Home: Yes Safety Concerns: Feels Safe At This Time Assistive Devices: None Review of Systems Review of Systems: All systems reviewed & are unremarkable except as noted in Subjective Physical Exam Constitutional: WD/WN, vitals as above Chronic ill-appearing Respiratory: normal respiratory effort, lungs clear to auscultation Cardiovascular: RRR, no murmur, no edema Gastrointestinal (Abdomen): normal bowel sounds, soft, nontender, no hepatosplenomegaly Skin: no rashes, warm and dry Psychiatric: A+Ox3, euthymic affect Results & Data Vital Signs (Past 12 Hours) Vital Signs Temp Pulse Resp BP Pulse Ox O2 Del Method 09/08/23 11:27 36.8 C 77 18 96/60 L 95 Room Air 09/08/23 07:26 36.9 C 75 21 113/67 93 Room Air 09/08/23 03:51 36.9 C 70 18 98/60 L 94 Room Air PG Care Time/CCT Total # of Minutes Spent Total Time Spent with Patient: Total time spent is greater than 50% in coordination of care (as documented) at patient's floor/unit and/or counseling patient: Coding Level of Care Code 51794 IN/OBS CONSULT LVL 4,60M Diagnoses LUIS (acute kidney injury) N17.9 Hypotension I95.9 Urinary tract infection N39.0 Hematuria presence: without hematuria Urinary tract infection type: site unspecified Dysphagia R13.10 (3) Urinary tract infection Hematuria presence: without hematuria Urinary tract infection type: site unspecified Qualified Code(s): N39.0 - Urinary tract infection, site not specified
[2023-09-08] MEDS ORDERED: MICONAZOLE NITRATE POWDER 85 GM EXT PRN (13:55)
[2023-09-08 19:13] LABS: BUN Creatinine Ratio 11.7 (10-20); Calcium 9.5 mg/dl (8.6-10.3); Creatinine Clr Calc Pharmacy 45.2 ml/min; Est GFR (African American) 44.8 ml/min; Est GFR (Non-African American) 38.6 ml/min; Potassium 3.9 mmol/L (3.5-5.1)
--- NOTE | 2023-09-08 20:31 | Ultrasound Report ---
RENAL ULTRASOUND CLINICAL HISTORY: Renal failure. COMPARISON STUDY: CT of the abdomen and pelvis September 07, 2023. TECHNIQUE: Sonography of the kidneys and the urinary bladder was performed. FINDINGS: Incidental note is made of increased hepatic echogenicity consistent with hepatic steatosis . There is no hydronephrosis. The right kidney measures 11.4 x 3.8 x 5 cm and the left measures 11.1 x 5.8 x 4.7 cm. No renal calculus or mass is identified. Both ureteral jets were identified. IMPRESSION: Unremarkable sonographic appearance of the kidneys. No hydronephrosis. ACT 112: Negative or not required by law. Electronically signed by: Steven Jackson M.D. 09/08/2023 8:29 PM
[2023-09-09] MEDS: HYDROCORTISONE SOD 50 MG in SYRINGE 0 ML IV SCH ×4 (00:05→18:02)
[2023-09-09] MEDS: LEVOTHYROXINE SODIUM 175 MCG TABLET PO SCH (05:46)
[2023-09-09] MEDS: HEPARIN SOD 5,000 UNIT/0.5 ML VIAL SQ SCH ×2 (05:47→14:14)
[2023-09-09 06:25] LABS: Basophils # (auto) 0.02 K/uL (0.00-0.20); Basophils % (auto) 0.3 %; Hematocrit (blood only) 28.3 % (42.0-52.0); Hemoglobin 9.7 g/dl (14.0-18.0); Immature Granulocytes # (auto) 0.03 K/uL (0.01-0.20); Immature Granulocytes % (auto) 0.5 %; Lymphocytes % (auto) 26.2 %; Mean Corpuscular Hemoglobin 29.9 pg (25.0-34.0); Mean Corpuscular Hgb Conc 34.3 g/dL (32.0-36.0); Mean Corpuscular Volume 87.3 fL (80.0-100.0); Mean Platelet Volume 11.4 fL (9.4-12.4); Monocytes % (auto) 6.5 %; Neutrophils # (auto) 4.06 K/uL (1.40-6.50); Neutrophils % (auto) 66.5 %; Platelet Count 129 K/uL (130-400); RDW Coefficient of Variation 12.9 % (11.5-14.5); RDW Standard Deviation 41.1 fL (36.4-46.3); Red Blood Count 3.24 M/uL (4.70-6.10); White Blood Count 6.11 K/ul (4.8-10.8)
--- NOTE | 2023-09-09 06:36 | Hospitalist Progress Note ---
Date of Service September 09, 2023 Assessment & Plan (1) Hypotension: (2) Infection: (3) Lactate blood increase: (4) Dysphagia: (5) Leg pain: (6) Barretts esophagus: (7) Central hypothyroidism: (8) Panhypopituitarism: (9) Diabetes mellitus, type 2: Plan Jose is a 67 year old male with a PMH significant for Panhypopituitarism , castrejon's esophagus, dysphagia, DMII, HTN, hypothyroidism, and hyperlipidemia Here due to generalized weakness, increased fatigue, increased dysphagia with decreased PO intake, BL leg pain and diarrhea. Hypotension: -Hypotension in ER: 74/53 resolved after 2L NSS, s/p stress dose steroids 100 mg IV hydrocortisone -low intake vs UTI vs hx of hypopituitarism -No leukocytosis -CTA chest: negative for PE -CT abdomen/pelvis: no bleeding, no obstruction - Home anti hypertensive hold -Continue hydrocortisone 50 mg Q6H Dysphagia: Hx of Esophageal stricture hx of Castrejon esophagus -Follows with [facility], S/P EGD with balloon dilation with Dr. Scott in April -Initial improvement with dilation but symptoms have been progressively worsening -Currently tolerating liquids and most pills/caps -Speech consulted: PO full liquids, can increase as tolerated, soft but sized slippery diet. -Continue Garfield Shakes TID -Continue Pantoprazole 40 mg AM -GI consulted: - Video swallow study today -No EGD - Barium Swallow: [id number] esophageal dysmotility. - Diet advanced today, aspirations precautions LUIS (acute kidney injury): -Resolved, baseline is near 1.1 -Likely pre-renal due to dehydration - s/p IV fluids -Avoid nephrotoxic agents Positive UA -WBC, wnl, lactate increased on ER, Blood culture/ urine culture negative -Rule out UTI, d/c antibiotics Diarrhea: -No recent abx use -Follow infectious workup Leg pain: -Complaining of BL leg aching -Has chronic leg pain but has been exacerbated since recent fall -Xrays: negative for any acute bony abnormality -Continue home Gabapentin, decreasing from 100 mg TID to BID for now with LUIS Barretts esophagus: -Continue protonix Central hypothyroidism: -Continue levothyroxine Panhypopituitarism: -Continue home hydrocortisone 50 mg Q6H Diabetes mellitus, type 2: -Hold metformin -Monitor BSG ACHS, goal is 110-140 -Start CF 50 ACHS for now with poor oral intake -Will hold basal insulin tonight to avoid hypoglycemia -Clear liquid diet -Adjust regimen as needed Disposition: PCU/ Telemetry DVT : Heparin 5,000 units SQ Q8H Diet: Clear liquid Admission and Anticipated Discharge Date Admission Date: September 07, 2023 Supervising Physician Co-Signing Physician Notes I personally examined the patient and verified all card points of history and exam, discussed case, and agree with decision making with Dr Bayron Joyce Swallowing liquids now. Generally feeling better. concerned because he has been in and out of the hospital and she wants to make sure that he is better before getting him home. Separately, later found me in the hallway and asked if he would be able to go home today because his barium swallow was done. Vitals noted, in general he is awake and alert pleasant no distress. HEENT normocephalic atraumatic mucous membranes moist. Breathing unlabored no accessory muscle use good effort. Skin shows no rashes no pallor or icterus. Neuro without focal deficits. Weakness/dehydration/failure to thriveseems to be doing better now. Possibly esophageal dysmotility as culprit,, less likely suboptimal dosing of steroids. Highly doubt UTI was real at all. Speech therapy input appreciated. Advance diet, follow closely. Hopefully home soon. Tata Garcia is a 67 year old male with a PMH significant for Panhypopituitarism (On daily Hydrocortisone), castrejon's esophagus, dysphagia S/P EGD with balloon dilation with Dr. Scott on 04/29/23, DMII, HTN, hypothyroidism, and hyperlipidemia Here due to generalized weakness, increased fatigue, increased dysphagia with decreased PO intake, BL leg pain and diarrhea. refers progressive dysphagia since his last EGD with balloon dilatation on 04/[address] Scott. Difficult swallowing solids and his pills, tolerated liquids. Early satiety and occasionally vomit after eating. Had the symptoms before EGD but are now worse. He had been having non-bloody diarrhea over the last 3 days. The patient denies recent fever, chest pain, SOB, cough, abd pain, nausea, new back pain, dysuria, hematuria, increased urinary frequency, melena, bloody BM's, and LE swelling. Review of Systems Review of Systems: as per HPI Physical Exam Physical Exam: Constitutional: WD/WN, vitals as above Respiratory: normal respiratory effort, lungs clear to auscultation Cardiovascular: RRR, no murmur, no edema Gastrointestinal (Abdomen): normal bowel sounds, soft, nontender, no hepatosplenomegaly Skin: no rashes, warm and dry Neurologic: patellar DTR's 2+ bilat, sensation intact Results & Data Results & Data Vital Signs (Past 12 Hours) Vital Signs Temp Pulse Resp BP Pulse Ox Pulse Ox O2 Del Method 09/09/23 03:41 37.2 C 87 18 115/64 97 Room Air 09/08/23 23:11 93 09/08/23 22:42 36.5 C 71 18 140/76 95 Room Air 09/08/23 19:17 36.5 C 89 18 125/92 95 Room Air O2 Del Method 09/09/23 03:41 09/08/23 23:11 Room Air 09/08/23 22:42 09/08/23 19:17 Resident Activity Tracking Resident Involvement: Resident Care Provided Care Provided: Adult Hospital Medicine (9) Diabetes mellitus, type 2 Diabetes mellitus complication status: with other specified complication Diabetes mellitus emt intermediate insulin use: without emt intermediate use Qualified Code(s): E11.69 - Type 2 diabetes mellitus with other specified complication
[2023-09-09] MEDS: GABAPENTIN 100 MG CAP PO SCH ×2 (08:10→20:30)
[2023-09-09] MEDS: ATORVASTATIN 40 MG TAB PO SCH (08:10)
[2023-09-09 08:11] LABS: Albumin Globulin Ratio 1.5 (0.9-2); BUN Creatinine Ratio 13.2 (10-20); Bilirubin,Total 0.7 mg/dl (0.2-1.0); Calcium 9.6 mg/dl (8.6-10.3); Est GFR (African American) 72.4 ml/min; Est GFR (Non-African American) 62.4 ml/min; Globulin 2.6 gm/dl (2.5-4.0); Magnesium 1.9 mg/dl (1.7-2.4); Phosphorus 3.7 mg/dl (2.5-4.9); Potassium 3.9 mmol/L (3.5-5.1); Total Protein 6.6 gm/dl (6.0-8.3)
[2023-09-09] MEDS: PANTOprazole 40 MG TAB PO SCH (08:11)
[2023-09-09] MEDS: INSULIN ASPART PER UNIT CHARGE SC SCH ×4 (08:14→20:33)
--- NOTE | 2023-09-09 11:25 | Gastroenterology Progress Note ---
Date of Service September 09, 2023 Assessment & Plan (1) LUIS (acute kidney injury): (2) Hypotension: (3) Urinary tract infection: (4) Dysphagia: Plan: Continue current therapy and supportive care as per the primary team. Video swallow study today. Continue Pantoprazole 40 mg by mouth each morning. No role for EGD in this setting as he is acutely ill, and just underwent EGD for same complaint in the past 4 months. Admission and Anticipated Discharge Date Admission Date: September 07, 2023 Supervising Physician Co-Signing Physician Notes Agree with ATMMY Seymour as above Abd: Soft, NT, ND, +BS Reviewed old video swallow with evidence of esophageal dysmotility Unfortunately not much to do for dysmotility Recommend outpatient FIN[employer]CIAL RESERVE CLERK evaluation and treatment Continue current therapy and supportive care Subjective Patient remains on clear liquid diet. For video swallow study today. It appears he did have a FINANCIAL RESERVE CLERK and video swallow evaluation in 2019 for similar symptoms of oropharyngeal dysphagia with findings of mid-esophageal dysmotility from review of records. Review of Systems Constitutional: no problem reported Gastrointestinal: as per Subjective / HPI Physical Exam Constitutional: well developed and well nourished Eyes: EOM intact bilaterally Neck: normal visual inspection Respiratory: normal respiratory effort Skin: normal color Psychiatric: A+Ox3, euthymic affect Results & Data Results & Data Vital Signs (Past 12 Hours) Vital Signs Temp Pulse Resp BP Pulse Ox O2 Del Method 09/09/23 11:12 36.8 C 69 19 126/87 98 Room Air 09/09/23 08:00 36.6 C 91 H 18 134/81 95 Room Air 09/09/23 03:41 37.2 C 87 18 115/64 97 Room Air PG Care Time/CCT Total # of Minutes Spent Total Time Spent with Patient: Total time spent is greater than 50% in coordination of care (as documented) at patient's floor/unit and/or counseling patient: Coding Level of Care Code 04639 SUB INP/OBS CARE 3/50MIN Diagnoses LUIS (acute kidney injury) N17.9 Hypotension I95.9 Urinary tract infection N39.0 Hematuria presence: without hematuria Urinary tract infection type: site unspecified Dysphagia R13.10 (3) Urinary tract infection Hematuria presence: without hematuria Urinary tract infection type: site unspecified Qualified Code(s): N39.0 - Urinary tract infection, site not specified
--- NOTE | 2023-09-09 17:31 | Fluoroscopy Report ---
DOUBLE CONTRAST BARIUM ESOPHAGRAM CLINICAL HISTORY: Dysphagia. COMPARISON STUDY: Barium esophagram dated 03/12/2023. TECHNIQUE: A standard air contrast barium esophagram is performed. Multiple spot images of the esopha jules are acquired both upright and prone. FINDINGS: The patient swallowed barium and the barium pill without difficulty. There is mild to moder ate esophageal dysmotility. The mucosal pattern is normal. There is no evidence of intrinsic or extri nsic mass lesion. No aspiration was seen. The gastroesophageal junction distended normally. No gastr oesophageal reflux could be elicited by having the patient perform the Valsalva maneuver. Fluoroscopy time: 1.04. Ka,r: 33.9 mGy Fluoroscopic images: 14 spot images and 2 cine loops IMPRESSION: 1. [id number] esophageal dysmotility. 2. Otherwise unremarkable barium esophagram ACT 112: Negative or not required by law. Electronically signed by: Mohsen Pal M.D. 09/09/2023 5:30 PM
--- NOTE | 2023-09-09 17:46 | Billing Data ---
Date of Service September 09, 2023 Coding Level of Care Code 86498 SUB INP/OBS CARE MIN
[2023-09-10] MEDS: HEPARIN SOD 5,000 UNIT/0.5 ML VIAL SQ SCH ×2 (00:15→06:13)
[2023-09-10] MEDS: HYDROCORTISONE SOD 50 MG in SYRINGE 0 ML IV SCH ×2 (00:16→06:14)
[2023-09-10 06:05] LABS: Basophils # (auto) 0.03 K/uL (0.00-0.20); Basophils % (auto) 0.5 %; Eosinophils # (auto) 0.01 K/uL (0.00-0.50); Eosinophils % (auto) 0.2 %; Hematocrit (blood only) 27.8 % (42.0-52.0); Hemoglobin 9.7 g/dl (14.0-18.0); Immature Granulocytes # (auto) 0.03 K/uL (0.01-0.20); Immature Granulocytes % (auto) 0.5 %; Lymphocytes # (auto) 1.67 K/uL (1.20-3.40); Lymphocytes % (auto) 27.7 %; Mean Corpuscular Hemoglobin 30.3 pg (25.0-34.0); Mean Corpuscular Hgb Conc 34.9 g/dL (32.0-36.0); Mean Corpuscular Volume 86.9 fL (80.0-100.0); Mean Platelet Volume 11.6 fL (9.4-12.4); Monocytes # (auto) 0.32 K/uL (0.11-0.59); Monocytes % (auto) 5.3 %; Neutrophils # (auto) 3.96 K/uL (1.40-6.50); Neutrophils % (auto) 65.8 %; Platelet Count 131 K/uL (130-400); RDW Standard Deviation 41.1 fL (36.4-46.3); White Blood Count 6.02 K/ul (4.8-10.8)
[2023-09-10] MEDS: LEVOTHYROXINE SODIUM 175 MCG TABLET PO SCH (06:14)
[2023-09-10 06:51] LABS: Bilirubin,Total 0.8 mg/dl (0.2-1.0); Calcium 9.5 mg/dl (8.6-10.3); Magnesium 1.7 mg/dl (1.7-2.4); Potassium 3.6 mmol/L (3.5-5.1)
[2023-09-10 06:59] LABS: Albumin Globulin Ratio 1.5 (0.9-2); BUN Creatinine Ratio 14.8 (10-20); Creatinine Clr Calc Pharmacy 89.3 ml/min; Est GFR (African American) 104.5 ml/min; Est GFR (Non-African American) 90.1 ml/min; Globulin 2.6 gm/dl (2.5-4.0); Total Protein 6.6 gm/dl (6.0-8.3)
--- NOTE | 2023-09-10 07:16 | Hospitalist Progress Note ---
Date of Service September 10, 2023 Assessment & Plan (1) Hypotension: (2) Infection: (3) Lactate blood increase: (4) Dysphagia: (5) Leg pain: (6) Barretts esophagus: (7) Central hypothyroidism: (8) Panhypopituitarism: (9) Diabetes mellitus, type 2: Plan Jose is a 67 year old male with a PMH significant for Panhypopituitarism , castrejon's esophagus, dysphagia, DMII, HTN, hypothyroidism, and hyperlipidemia Here due to generalized weakness, increased fatigue, increased dysphagia with decreased PO intake, BL leg pain and diarrhea. Hypotension: -Hypotension in ER: 74/53 resolved after 2L NSS, s/p stress dose steroids 100 mg IV hydrocortisone -low intake vs UTI vs hx of hypopituitarism -No leukocytosis -CTA chest: negative for PE -CT abdomen/pelvis: no bleeding, no obstruction - Home anti hypertensive hold -Continue hydrocortisone 50 mg Q6H Dysphagia: Hx of Esophageal stricture hx of Castrejon esophagus -Follows with [facility], S/P EGD with balloon dilation with Dr. Scott in April -Initial improvement with dilation but symptoms have been progressively worsening -Currently tolerating liquids and most pills/caps -Speech consulted: PO full liquids, can increase as tolerated, soft but sized slippery diet. -Continue [place]field Shakes TID -Continue Pantoprazole 40 mg AM -GI consulted: - Recommend outpatient ADMISSIONS MANAGER RN evaluation and treatment -No EGD - Barium Swallow: [id number]-pj-ikukoegp esophageal dysmotility. - Diet advanced today, aspirations precautions LUIS (acute kidney injury): -Resolved, baseline is near 1.1 -Likely pre-renal due to dehydration - s/p IV fluids -Avoid nephrotoxic agents Positive UA -WBC, wnl, lactate increased on ER, Blood culture/ urine culture negative -Rule out UTI, d/c antibiotics Diarrhea: -No recent abx use -Follow infectious workup Leg pain: -Complaining of BL leg aching -Has chronic leg pain but has been exacerbated since recent fall -Xrays: negative for any acute bony abnormality -Continue home Gabapentin, decreasing from 100 mg TID to BID for now with LUIS Barretts esophagus: -Continue protonix Central hypothyroidism: -Continue levothyroxine Panhypopituitarism: -Continue home hydrocortisone 50 mg Q6H Diabetes mellitus, type 2: -Hold metformin -Monitor BSG ACHS, goal is 110-140 -Start CF 50 ACHS for now with poor oral intake -Will hold basal insulin tonight to avoid hypoglycemia -Clear liquid diet -Adjust regimen as needed Disposition: PCU/ Telemetry DVT : Heparin 5,000 units SQ Q8H Diet: Clear liquid Admission and Anticipated Discharge Date Admission Date: September 07, 2023 Review of Systems Review of Systems: as per HPI Physical Exam Physical Exam: Constitutional: WD/WN, vitals as above Respiratory: normal respiratory effort, lungs clear to auscultation Cardiovascular: RRR, no murmur, no edema Gastrointestinal (Abdomen): normal bowel sounds, soft, nontender, no hepatos plenomegaly Skin: no rashes, warm and dry Neurologic: patellar DTR's 2+ bilat, sensation intact Results & Data Results & Data Vital Signs (Past 12 Hours) Vital Signs Temp Pulse Resp BP Pulse Ox Pulse Ox O2 Del Method 09/10/23 03:08 37.2 C 55 L 18 147/82 H 95 Room Air 09/09/23 23:00 95 09/09/23 22:53 36.5 C 65 18 158/85 H 95 Room Air 09/09/23 19:36 37.4 C 69 18 154/87 H 96 Room Air O2 Del Method 09/10/23 03:08 09/09/23 23:00 Room Air 09/09/23 22:53 09/09/23 19:36 Resident Activity Tracking Resident Involvement: Resident Care Provided Care Provided: Adult Hospital Medicine (9) Diabetes mellitus, type 2 Diabetes mellitus retirement insulin use: without retirement use Diabetes mellitus complication status: with other specified complication Qualified Code(s): E11.69 - Type 2 diabetes mellitus with other specified complication
[2023-09-10] MEDS: ATORVASTATIN 40 MG TAB PO SCH (08:09)
[2023-09-10] MEDS: GABAPENTIN 100 MG CAP PO SCH (08:09)
[2023-09-10] MEDS: PANTOprazole 40 MG TAB PO SCH (08:10)
[2023-09-10] MEDS: INSULIN ASPART PER UNIT CHARGE SC SCH ×2 (08:19→12:50)
--- NOTE | 2023-09-10 12:47 | Discharge Summary ---
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 Scott on 04/29/23, DMII, HTN, hypothyroidism, and hyperlipidemia who presented to the [facility] ED on 09/07 with his for multiple complaints including Generalized weakness, increased dysphagia with decreased PO intake, BL leg pain, and diarrhea. The patient was noted to be hypotensive at 74/53 on arrival but otherwise stable. Labs were significant for a Cr of 1.87 (baseline of 1.1-1.2), initial lactate of 3.1, calcium of 10.8, CRP of 0.57, UA with cloudy appearance, 3+ blood, 10-30 WBC, > 30 RBC's, 10-30 hyaline casts, > 30 epithelial cells, and 1+ bacteria, and full respiratory biofire negative. CT of the head wo con was read as "1. There is no hemorrhage, mass effect, or evidence of acute territorial ischemia by CT criteria. 2. 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 3. Paranasal sinus disease as above. ". Chest xray was negative for acute disease. CT angiogram of the chest and CT of the abd/pelvis w/IV con were read as "1. There is no evidence of pulmonary embolus in the main, lobar, or segmental pulmonary arteries. 2. There is no airspace consolidation or pleural effusion. 3. Cardiomegaly with advanced coronary artery atherosclerosis. 4. The bladder is decompressed around a Dean catheter and appears thick-walled. Correlate with clinical findings and urinalysis. 5. Hepatomegaly and hepatic steatosis. 6. Cholelithiasis. 7. Additional findings as above.". Prior to admission the patient was given a dose of cefepime and 2L NSS. At the time of the exam the patient was sitting in bed and appears fatigued but in no acute distress with his standing bedside; history was obtained from both. His states that the patient has been dealing with progressive dysphagia since his last EGD with balloon dilation with Dr. Scott on 04/29/23. When asked, they explain that it has gotten to the point where he has difficulty swallowing solids and his pills, he can currently tolerate liquids. He will have early satiety and will occasionally vomit after eating. They explain that his symptoms had improved after balloon dilation but are now worse than prior to his last EGD. Approximately 2 days ago he fell walking in their driveway because his tripped on his untied shoelace. His witnessed the fall, they both confirm that he landed on his knees and outstretched hands. He did not hit his head or lose consciousness. He was able to get up quickly after and ambulate without issue. He has been having 2-3 episodes of non-bloody diarrhea over the past 3 days, they deny recent abx use. The patient states that his legs have been aching which has been aching since his fall. The patient denies recent fever, chest pain, SOB, cough, abd pain, nausea, new back pain, dysuria, hematuria, increased urinary frequency, melena, bloody BM's, and LE swelling. His states that the patient often does not complain when he is experiencing acute symptoms such as infections. We discussed code status, he is a full code and would want his to make medical decisions for him if he cannot make them himself. Please refer to Dr. Thomas's attestation for any changes to the treatment plan Admission Exam Per Admitting Provider Physical Exam: General: In no acute distress, fatigued but non-toxic appearing HEENT: Normocephalic, atraumatic, negative tenderness to palpation of the frontal and maxillary sinuses, no scleral icterus, pupils around round, symmetrical, and reactive to light, dry mucus membranes, trachea midline, no thyromegaly Chest/Pulm: No respiratory distress, symmetrical chest expansion, clear breath sounds throughout Cardiac: RRR, no murmurs noted Abdomen: Negative for ascites and bruising, normoactive bowel sounds, soft, non- tender to palpation throughout Musculoskeletal: No acute trauma noted on the face, head, neck, cervical, thoracic, lumbar spine, and BL upper extremities. Patient with non-bleeding skin abrasions to the BL knees, able to move BL LE's without limitation Extremities: Radial, dorsalis pedis, and posterior tibial pulses are intact and symmetrical, no edema noted in the BL LE's Skin: As described above Neuro: Alert and oriented to person, place, month, year, and president, no focal defects, CN II-XII tested and intact, no tremors noted Psych: No acute distress, calm and cooperative during the exam Principal Diagnosis Esophageal Dysmotility Discharge Exam Constitutional WD/WN, vitals as above Respiratory normal respiratory effort, lungs clear to auscultation Cardiovascular RRR, no murmur, no edema Gastrointestinal (Abdomen) normal bowel sounds, soft, nontender, no hepatosplenomegaly Skin no rashes, warm and dry Neurologic patellar DTR's 2+ bilat, sensation intact Discharge Data Allergies Allergy/AdvReac Type Severity Reaction Status Date / Time No Known Drug Allergies Allergy Verified 08/22/23 10:26 Consultations 09/07/23 18:29 ED Decision to Admit Stat 09/07/23 19:22 Consult Gastroenterology Routine Ordered Studies Microbiology 09/07/23 15:54 Blood Aerobic Blood Culture - Preliminary No growth in Aerobic bottle after 48 hours. 09/07/23 15:54 Blood Anaerobic Blood Culture - Preliminary No growth in Anaerobic bottle after 48 hours. 09/07/23 15:35 Blood Aerobic Blood Culture - Preliminary No growth in Aerobic bottle after 48 hours. 09/07/23 15:35 Blood Anaerobic Blood Culture - Preliminary No growth in Anaerobic bottle after 48 hours. 09/07/23 17:26 Urine,Clean Catch Urine Culture - Final No growth - less than 1,000 colonies/mL. Labs 09/07/23 09/07/23 09/07/23 15:35 15:41 15:50 WBC 5.84 RBC 4.14 L Hgb 12.5 L POC Hgb 12.2 L Hct 36.6 L POC Hct 36 L MCV 88.4 MCH 30.2 MCHC 34.2 RDW Std Deviation 42.1 RDW Coeff of Tanvir 13.0 Plt Count 181 MPV 11.0 Immature Gran % (Auto) 0.2 Neut % (Auto) 35.5 Lymph % (Auto) 46.4 [place] % (Auto) 10.6 Eos % (Auto) 6.3 Baso % (Auto) 1.0 Neut # (Auto) 2.07 Lymph # (Auto) 2.71 [place] # (Auto) 0.62 H Eos # (Auto) 0.37 Baso # (Auto) 0.06 Immature Gran # (Auto) 0.01 PT 12.4 H INR 1.1 APTT 28.9 PTT Ratio 1.0 VBG pH VBG pCO2 VBG pO2 VBG HCO3 VBG O2 Saturation VBG Base Excess Carboxyhemoglobin Methemoglobin POC Sodium 138 Sodium 137 POC Potassium 4.2 Potassium 4.1 POC Chloride 101 Chloride 101 Carbon Dioxide 27 POC Total CO2 24 Anion Gap 9 POC Anion Gap 18.0 POC BUN 19 H BUN 19 Creatinine 1.87 H POC Creatinine 2.0 H Est Cr Clr Drug Dosing 42.2 Est GFR ( Amer) 42.8 Est GFR (Non-Af Amer) 36.9 BUN/Creatinine Ratio 10.2 Glucose 172 H POC Glucose POC Glucose (other) 172 H Lactate Calcium 10.8 H POC Ioniz Calcium Alhaji 1.30 Phosphorus Magnesium 1.7 Total Bilirubin 1.0 Direct Bilirubin 0.2 AST 33 ALT 23 Alkaline Phosphatase 36 Ammonia Total Creatine Kinase 92 Troponin I High Sens 5.1 C-Reactive Protein 0.57 H Total Protein 7.3 Albumin 4.2 Globulin Albumin/Globulin Ratio Procalcitonin 0.26 Random Cortisol 0.89 Urine Color Urine Appearance Urine pH Ur Specific [place] Urine Protein Urine Glucose (UA) Urine Ketones Urine Blood Urine Nitrite Urine Bilirubin Urine Urobilinogen Ur Leukocyte Esterase Urine WBC (Auto) Urine RBC (Auto) U Hyaline Cast (Auto) U Epithel Cells (Auto) Urine Bacteria (Auto) Urine Yeast Adenovirus (PCR) Not Detected B. pertussis DNA (PCR) Not Detected B.parapertussis DNA PCR Not Detected C. pneumoniae DNA (PCR) Not Detected Coronavirus OC43 (PCR) Not Detected Coronavirus HKU1 (PCR) Not Detected Coronavirus 229E (PCR) Not Detected SARS-CoV-2 (PCR) Not Detected Coronavirus NL63 (PCR) Not Detected Human Metapneumovir PCR Not Detected Influenza Type A (PCR) Not Detected Influenza Type B (PCR) Not Detected M. pneumoniae (PCR) Not Detected Parainfluenza 1 (PCR) Not Detected Parainfluenza 2 (PCR) Not Detected Parainfluenza 3 (PCR) Not Detected Parainfluenza 4 (PCR) Not Detected RSV (PCR) Not Detected Entero/Rhino (PCR) Not Detected Blood Type Antibody Screen 09/07/23 09/07/23 09/07/23 15:54 17:26 17:50 WBC RBC Hgb POC Hgb Hct POC Hct MCV MCH MCHC RDW Std Deviation RDW Coeff of Tanvir Plt Count MPV Immature Gran % (Auto) Neut % (Auto) Lymph % (Auto) [place] % (Auto) Eos % (Auto) Baso % (Auto) Neut # (Auto) Lymph # (Auto) [place] # (Auto) Eos # (Auto) Baso # (Auto) Immature Gran # (Auto) PT INR APTT PTT Ratio VBG pH 7.27 L VBG pCO2 52 H VBG pO2 < 20 VBG HCO3 24 VBG O2 Saturation < 60.0 VBG Base Excess -3.6 Carboxyhemoglobin 1.0 Methemoglobin 0.7 POC Sodium Sodium POC Potassium Potassium POC Chloride Chloride Carbon Dioxide POC Total CO2 Anion Gap POC Anion Gap POC BUN BUN Creatinine POC Creatinine Est Cr Clr Drug Dosing Est GFR ( Amer) Est GFR (Non-Af Amer) BUN/Creatinine Ratio Glucose POC Glucose POC Glucose (other) Lactate 3.1 H* 2.2 H* Calcium POC Ioniz Calcium Alhaji Phosphorus Magnesium Total Bilirubin Direct Bilirubin AST ALT Alkaline Phosphatase Ammonia 30.0 Total Creatine Kinase Troponin I High Sens C-Reactive Protein Total Protein Albumin Globulin Albumin/Globulin Ratio Procalcitonin Random Cortisol Urine Color Yellow Urine Appearance Cloudy A Urine pH 5.0 Ur Specific [place] 1.042 H Urine Protein 2+ H Urine Glucose (UA) Negative Urine Ketones Negative Urine Blood 3+ H Urine Nitrite Negative Urine Bilirubin Negative Urine Urobilinogen Negative Ur Leukocyte Esterase Negative Urine WBC (Auto) 10-30 H Urine RBC (Auto) >30 H U Hyaline Cast (Auto) 10-30 H U Epithel Cells (Auto) >30 H Urine Bacteria (Auto) 1+ H Urine Yeast Not Reportable Adenovirus (PCR) B. pertussis DNA (PCR) B.parapertussis DNA PCR C. pneumoniae DNA (PCR) Coronavirus OC43 (PCR) Coronavirus HKU1 (PCR) Coronavirus 229E (PCR) SARS-CoV-2 (PCR) Coronavirus NL63 (PCR) Human Metapneumovir PCR Influenza Type A (PCR) Influenza Type B (PCR) M. pneumoniae (PCR) Parainfluenza 1 (PCR) Parainfluenza 2 (PCR) Parainfluenza 3 (PCR) Parainfluenza 4 (PCR) RSV (PCR) Entero/Rhino (PCR) Blood Type B Positive Antibody Screen NEGATIVE 09/07/23 09/07/23 09/08/23 21:14 23:46 05:34 WBC 5.82 RBC 3.44 L Hgb 10.4 L POC Hgb Hct 29.9 L POC Hct MCV 86.9 MCH 30.2 MCHC 34.8 RDW Std Deviation 41.0 RDW Coeff of Tanvir 12.9 Plt Count 150 MPV 11.6 Immature Gran % (Auto) 0.2 Neut % (Auto) 71.5 Lymph % (Auto) 22.0 [place] % (Auto) 6.0 Eos % (Auto) 0.0 Baso % (Auto) 0.3 Neut # (Auto) 4.16 Lymph # (Auto) 1.28 [place] # (Auto) 0.35 Eos # (Auto) 0.00 Baso # (Auto) 0.02 Immature Gran # (Auto) 0.01 PT INR APTT PTT Ratio VBG pH VBG pCO2 VBG pO2 VBG HCO3 VBG O2 Saturation VBG Base Excess Carboxyhemoglobin Methemoglobin POC Sodium Sodium 138 POC Potassium Potassium 4.4 POC Chloride Chloride 106 Carbon Dioxide 23 POC Total CO2 Anion Gap 9 POC Anion Gap POC BUN BUN 24 H Creatinine 2.00 H POC Creatinine Est Cr Clr Drug Dosing 40.7 Est GFR ( Amer) 39.4 Est GFR (Non-Af Amer) 34.0 BUN/Creatinine Ratio 12.0 Glucose 152 H POC Glucose 195 H POC Glucose (other) Lactate 2.0 Calcium 9.6 POC Ioniz Calcium Alhaji Phosphorus Magnesium 1.5 L Total Bilirubin 0.8 Direct Bilirubin AST 21 ALT 17 Alkaline Phosphatase 30 L Ammonia Total Creatine Kinase Troponin I High Sens C-Reactive Protein Total Protein 6.3 Albumin 3.6 Globulin 2.7 Albumin/Globulin Ratio 1.3 Procalcitonin Random Cortisol Urine Color Urine Appearance Urine pH Ur Specific [place] Urine Protein Urine Glucose (UA) Urine Ketones Urine Blood Urine Nitrite Urine Bilirubin Urine Urobilinogen Ur Leukocyte Esterase Urine WBC (Auto) Urine RBC (Auto) U Hyaline Cast (Auto) U Epithel Cells (Auto) Urine Bacteria (Auto) Urine Yeast Adenovirus (PCR) B. pertussis DNA (PCR) B.parapertussis DNA PCR C. pneumoniae DNA (PCR) Coronavirus OC43 (PCR) Coronavirus HKU1 (PCR) Coronavirus 229E (PCR) SARS-CoV-2 (PCR) Coronavirus NL63 (PCR) Human Metapneumovir PCR Influenza Type A (PCR) Influenza Type B (PCR) M. pneumoniae (PCR) Parainfluenza 1 (PCR) Parainfluenza 2 (PCR) Parainfluenza 3 (PCR) Parainfluenza 4 (PCR) RSV (PCR) Entero/Rhino (PCR) Blood Type Antibody Screen 09/08/23 09/08/23 09/08/23 07:24 11:22 16:13 WBC RBC Hgb POC Hgb Hct POC Hct MCV MCH MCHC RDW Std Deviation RDW Coeff of Tanvir Plt Count MPV Immature Gran % (Auto) Neut % (Auto) Lymph % (Auto) [place] % (Auto) Eos % (Auto) Baso % (Auto) Neut # (Auto) Lymph # (Auto) [place] # (Auto) Eos # (Auto) Baso # (Auto) Immature Gran # (Auto) PT INR APTT PTT Ratio VBG pH VBG pCO2 VBG pO2 VBG HCO3 VBG O2 Saturation VBG Base Excess Carboxyhemoglobin Methemoglobin POC Sodium Sodium POC Potassium Potassium POC Chloride Chloride Carbon Dioxide POC Total CO2 Anion Gap POC Anion Gap POC BUN BUN Creatinine POC Creatinine Est Cr Clr Drug Dosing Est GFR ( Amer) Est GFR (Non-Af Amer) BUN/Creatinine Ratio Glucose POC Glucose 118 H 172 H 165 H POC Glucose (other) Lactate Calcium POC Ioniz Calcium Alhaji Phosphorus Magnesium Total Bilirubin Direct Bilirubin AST ALT Alkaline Phosphatase Ammonia Total Creatine Kinase Troponin I High Sens C-Reactive Protein Total Protein Albumin Globulin Albumin/Globulin Ratio Procalcitonin Random Cortisol Urine Color Urine Appearance Urine pH Ur Specific [place] Urine Protein Urine Glucose (UA) Urine Ketones Urine Blood Urine Nitrite Urine Bilirubin Urine Urobilinogen Ur Leukocyte Esterase Urine WBC (Auto) Urine RBC (Auto) U Hyaline Cast (Auto) U Epithel Cells (Auto) Urine Bacteria (Auto) Urine Yeast Adenovirus (PCR) B. pertussis DNA (PCR) B.parapertussis DNA PCR C. pneumoniae DNA (PCR) Coronavirus OC43 (PCR) Coronavirus HKU1 (PCR) Coronavirus 229E (PCR) SARS-CoV-2 (PCR) Coronavirus NL63 (PCR) Human Metapneumovir PCR Influenza Type A (PCR) Influenza Type B (PCR) M. pneumoniae (PCR) Parainfluenza 1 (PCR) Parainfluenza 2 (PCR) Parainfluenza 3 (PCR) Parainfluenza 4 (PCR) RSV (PCR) Entero/Rhino (PCR) Blood Type Antibody Screen 09/08/23 09/08/23 09/09/23 18:18 20:31 05:54 WBC 6.11 RBC 3.24 L Hgb 9.7 L POC Hgb Hct 28.3 L POC Hct MCV 87.3 MCH 29.9 MCHC 34.3 RDW Std Deviation 41.1 RDW Coeff of Tanvir 12.9 Plt Count 129 L MPV 11.4 Immature Gran % (Auto) 0.5 Neut % (Auto) 66.5 Lymph % (Auto) 26.2 [place] % (Auto) 6.5 Eos % (Auto) 0.0 Baso % (Auto) 0.3 Neut # (Auto) 4.06 Lymph # (Auto) 1.60 [place] # (Auto) 0.40 Eos # (Auto) 0.00 Baso # (Auto) 0.02 Immature Gran # (Auto) 0.03 PT INR APTT PTT Ratio VBG pH VBG pCO2 VBG pO2 VBG HCO3 VBG O2 Saturation VBG Base Excess Carboxyhemoglobin Methemoglobin POC Sodium Sodium 139 143 POC Potassium Potassium 3.9 3.9 POC Chloride Chloride 107 110 H Carbon Dioxide 23 26 POC Total CO2 Anion Gap 9 7 POC Anion Gap POC BUN BUN 21 16 Creatinine 1.80 H 1.21 D POC Creatinine Est Cr Clr Drug Dosing 45.2 65.0 Est GFR ( Amer) 44.8 72.4 Est GFR (Non-Af Amer) 38.6 62.4 BUN/Creatinine Ratio 11.7 13.2 Glucose 277 H 162 H POC Glucose 269 H POC Glucose (other) Lactate Calcium 9.5 9.6 POC Ioniz Calcium Alhaji Phosphorus 3.7 Magnesium 1.9 Total Bilirubin 0.7 Direct Bilirubin AST 15 ALT 14 Alkaline Phosphatase 29 L Ammonia Total Creatine Kinase Troponin I High Sens C-Reactive Protein Total Protein 6.6 Albumin 4.0 Globulin 2.6 Albumin/Globulin Ratio 1.5 Procalcitonin Random Cortisol Urine Color Urine Appearance Urine pH Ur Specific [place] Urine Protein Urine Glucose (UA) Urine Ketones Urine Blood Urine Nitrite Urine Bilirubin Urine Urobilinogen Ur Leukocyte Esterase Urine WBC (Auto) Urine RBC (Auto) U Hyaline Cast (Auto) U Epithel Cells (Auto) Urine Bacteria (Auto) Urine Yeast Adenovirus (PCR) B. pertussis DNA (PCR) B.parapertussis DNA PCR C. pneumoniae DNA (PCR) Coronavirus OC43 (PCR) Coronavirus HKU1 (PCR) Coronavirus 229E (PCR) SARS-CoV-2 (PCR) Coronavirus NL63 (PCR) Human Metapneumovir PCR Influenza Type A (PCR) Influenza Type B (PCR) M. pneumoniae (PCR) Parainfluenza 1 (PCR) Parainfluenza 2 (PCR) Parainfluenza 3 (PCR) Parainfluenza 4 (PCR) RSV (PCR) Entero/Rhino (PCR) Blood Type Antibody Screen 09/09/23 09/09/23 09/09/23 07:14 11:09 16:19 WBC RBC Hgb POC Hgb Hct POC Hct MCV MCH MCHC RDW Std Deviation RDW Coeff of Tanvir Plt Count MPV Immature Gran % (Auto) Neut % (Auto) Lymph % (Auto) [place] % (Auto) Eos % (Auto) Baso % (Auto) Neut # (Auto) Lymph # (Auto) [place] # (Auto) Eos # (Auto) Baso # (Auto) Immature Gran # (Auto) PT INR APTT PTT Ratio VBG pH VBG pCO2 VBG pO2 VBG HCO3 VBG O2 Saturation VBG Base Excess Carboxyhemoglobin Methemoglobin POC Sodium Sodium POC Potassium Potassium POC Chloride Chloride Carbon Dioxide POC Total CO2 Anion Gap POC Anion Gap POC BUN BUN Creatinine POC Creatinine Est Cr Clr Drug Dosing Est GFR ( Amer) Est GFR (Non-Af Amer) BUN/Creatinine Ratio Glucose POC Glucose 158 H 227 H 137 H POC Glucose (other) Lactate Calcium POC Ioniz Calcium [place]aji Phosphorus Magnesium Total Bilirubin Direct Bilirubin AST ALT Alkaline Phosphatase Ammonia Total Creatine Kinase Troponin I High Sens C-Reactive Protein Total Protein Albumin Globulin Albumin/Globulin Ratio Procalcitonin Random Cortisol Urine Color Urine Appearance Urine pH Ur Specific [place] Urine Protein Urine Glucose (UA) Urine Ketones Urine Blood Urine Nitrite Urine Bilirubin Urine Urobilinogen Ur Leukocyte Esterase Urine WBC (Auto) Urine RBC (Auto) U Hyaline Cast (Auto) U Epithel Cells (Auto) Urine Bacteria (Auto) Urine Yeast Adenovirus (PCR) B. pertussis DNA (PCR) B.parapertussis DNA PCR C. pneumoniae DNA (PCR) Coronavirus OC43 (PCR) Coronavirus HKU1 (PCR) Coronavirus 229E (PCR) SARS-CoV-2 (PCR) Coronavirus NL63 (PCR) Human Metapneumovir PCR Influenza Type A (PCR) Influenza Type B (PCR) M. pneumoniae (PCR) Parainfluenza 1 (PCR) Parainfluenza 2 (PCR) Parainfluenza 3 (PCR) Parainfluenza 4 (PCR) RSV (PCR) Entero/Rhino (PCR) Blood Type Antibody Screen 09/09/23 09/10/23 09/10/23 20:29 05:39 07:24 WBC 6.02 RBC 3.20 L Hgb 9.7 L POC Hgb Hct 27.8 L POC Hct MCV 86.9 MCH 30.3 MCHC 34.9 RDW Std Deviation 41.1 RDW Coeff of Tanvir 13.0 Plt Count 131 MPV 11.6 Immature Gran % (Auto) 0.5 Neut % (Auto) 65.8 Lymph % (Auto) 27.7 [place] % (Auto) 5.3 Eos % (Auto) 0.2 Baso % (Auto) 0.5 Neut # (Auto) 3.96 Lymph # (Auto) 1.67 [place] # (Auto) 0.32 Eos # (Auto) 0.01 Baso # (Auto) 0.03 Immature Gran # (Auto) 0.03 PT INR APTT PTT Ratio VBG pH VBG pCO2 VBG pO2 VBG HCO3 VBG O2 Saturation VBG Base Excess Carboxyhemoglobin Methemoglobin POC Sodium Sodium 144 POC Potassium Potassium 3.6 POC Chloride Chloride 109 H Carbon Dioxide 28 POC Total CO2 Anion Gap 7 POC Anion Gap POC BUN BUN 13 Creatinine 0.88 D POC Creatinine Est Cr Clr Drug Dosing 89.3 Est GFR ( Amer) 104.5 Est GFR (Non-Af Amer) 90.1 BUN/Creatinine Ratio 14.8 Glucose 173 H POC Glucose 298 H 159 H POC Glucose (other) Lactate Calcium 9.5 POC Ioniz Calcium Alhaji Phosphorus Magnesium 1.7 Total Bilirubin 0.8 Direct Bilirubin AST 13 ALT 12 Alkaline Phosphatase 29 L Ammonia Total Creatine Kinase Troponin I High Sens C-Reactive Protein Total Protein 6.6 Albumin 4.0 Globulin 2.6 Albumin/Globulin Ratio 1.5 Procalcitonin Random Cortisol Urine Color Urine Appearance Urine pH Ur Specific [place] Urine Protein Urine Glucose (UA) Urine Ketones Urine Blood Urine Nitrite Urine Bilirubin Urine Urobilinogen Ur Leukocyte Esterase Urine WBC (Auto) Urine RBC (Auto) U Hyaline Cast (Auto) U Epithel Cells (Auto) Urine Bacteria (Auto) Urine Yeast Adenovirus (PCR) B. pertussis DNA (PCR) B.parapertussis DNA PCR C. pneumoniae DNA (PCR) Coronavirus OC43 (PCR) Coronavirus HKU1 (PCR) Coronavirus 229E (PCR) SARS-CoV-2 (PCR) Coronavirus NL63 (PCR) Human Metapneumovir PCR Influenza Type A (PCR) Influenza Type B (PCR) M. pneumoniae (PCR) Parainfluenza 1 (PCR) Parainfluenza 2 (PCR) Parainfluenza 3 (PCR) Parainfluenza 4 (PCR) RSV (PCR) Entero/Rhino (PCR) Blood Type Antibody Screen 09/10/23 11:32 WBC RBC Hgb POC Hgb Hct POC Hct MCV MCH MCHC RDW Std Deviation RDW Coeff of Tanvir Plt Count MPV Immature Gran % (Auto) Neut % (Auto) Lymph % (Auto) [place] % (Auto) Eos % (Auto) Baso % (Auto) Neut # (Auto) Lymph # (Auto) [place] # (Auto) Eos # (Auto) Baso # (Auto) Immature Gran # (Auto) PT INR APTT PTT Ratio VBG pH VBG pCO2 VBG pO2 VBG HCO3 VBG O2 Saturation VBG Base Excess Carboxyhemoglobin Methemoglobin POC Sodium Sodium POC Potassium Potassium POC Chloride Chloride Carbon Dioxide POC Total CO2 Anion Gap POC Anion Gap POC BUN BUN Creatinine POC Creatinine Est Cr Clr Drug Dosing Est GFR ( Amer) Est GFR (Non-Af Amer) BUN/Creatinine Ratio Glucose POC Glucose 224 H POC Glucose (other) Lactate Calcium POC Ioniz Calcium [place] Phosphorus Magnesium Total Bilirubin Direct Bilirubin AST ALT Alkaline Phosphatase Ammonia Total Creatine Kinase Troponin I High Sens C-Reactive Protein Total Protein Albumin Globulin Albumin/Globulin Ratio Procalcitonin Random Cortisol Urine Color Urine Appearance Urine pH Ur Specific [place] Urine Protein Urine Glucose (UA) Urine Ketones Urine Blood Urine Nitrite Urine Bilirubin Urine Urobilinogen Ur Leukocyte Esterase Urine WBC (Auto) Urine RBC (Auto) U Hyaline Cast (Auto) U Epithel Cells (Auto) Urine Bacteria (Auto) Urine Yeast Adenovirus (PCR) B. pertussis DNA (PCR) B.parapertussis DNA PCR C. pneumoniae DNA (PCR) Coronavirus OC43 (PCR) Coronavirus HKU1 (PCR) Coronavirus 229E (PCR) SARS-CoV-2 (PCR) Coronavirus NL63 (PCR) Human Metapneumovir PCR Influenza Type A (PCR) Influenza Type B (PCR) M. pneumoniae (PCR) Parainfluenza 1 (PCR) Parainfluenza 2 (PCR) Parainfluenza 3 (PCR) Parainfluenza 4 (PCR) RSV (PCR) Entero/Rhino (PCR) Blood Type Antibody Screen Chest X-Ray 09/07/23 15:37 SINGLE VIEW CHEST CLINICAL HISTORY: Sepsis. FINDINGS: An AP, portable, upright chest radiograph is compared to chest x-ray and chest CT dated 07/18/2023. The examination is degraded by portable technique and apical lordotic positioning. The heart is enlarged. The pulmonary vasculature is noncongested. Chronic interstitial thickening similar to previous. There is bibasilar scarring/atelectasis. The lungs and pleural spaces are otherwise clear. No pneumothorax is seen. The skeletal structures are osteopenic. The bony thorax is grossly intact. IMPRESSION: Cardiomegaly with no active disease in the chest. ACT 112: Negative or not required by law. Electronically signed by: Mohsen Pal M.D. 09/07/2023 5:48 PM Abdomen/Pelvis CT 09/07/23 15:43 CT ANGIOGRAM OF THE CHEST; CT SCAN OF THE ABDOMEN AND PELVIS WITH IV CONTRAST CLINICAL HISTORY: Change in mental status. Generalized weakness. Diarrhea. Right-sided abdominal pain. COMPARISON STUDY: CT scan of the chest, abdomen, and pelvis dated 07/18/2023. The chest x-ray dated 09/07/2023. TECHNIQUE: Following the IV administration of 118 of Optiray 320, CT angiogram of the chest is performed from the upper abdomen to the thoracic inlet utilizing the pulmonary embolus protocol. Images are reviewed in the axial, sagittal, coronal planes. 3-D MIPS images are created and assessed. Subsequently, CT scan of the abdomen and pelvis was performed from the lung bases to the proximal femora. Images are reviewed in the axial, sagittal, and coronal planes. IV contrast was administered without complication. A dose lowering technique was utilized adhering to the principles of ALARA. FINDINGS: CHEST: Thyroid: Atrophic and heterogeneous. Thoracic aorta: The thoracic aorta is normal in caliber and demonstrates standard 3-vessel arch anatomy. The thoracic aorta is not well opacified. Pulmonary vasculature: The pulmonary trunk is normal in caliber. There are no filling defects identified in the main, lobar, or segmental pulmonary arteries to indicate pulmonary embolus. Heart: The heart is enlarged and without pericardial effusion. The coronary arteries are densely calcified. Lungs and pleural spaces: There is bibasilar scarring/atelectasis. No airspace consolidation or pleural effusion is identified. The trachea and central airways are clear. Mild diffuse peribronchial thickening suggests bronchitis/reactive airway disease. Mediastinum: There is no mediastinal lymphadenopathy. Katerine: Clear. Axillae: There is no axillary lymphadenopathy. Bony thorax: The skeletal structures are osteopenic. No lytic or blastic lesions are identified. ABDOMEN AND PELVIS: Liver: The contrast-enhanced liver is enlarged, measuring 21 cm in length. Attenuation is diminished indicating steatosis. There is no intrahepatic biliary ductal dilatation. The hepatic veins and portal veins are patent. A 10 mm left lobe hypodensity on image #49 may represent a cyst or hemangioma but is too small for definitive characterization. Gallbladder: There are small calcified gallstones without CT evidence of acute cholecystitis. Spleen: Normal in size and attenuation. Pancreas: Unremarkable. Adrenal glands: Unremarkable. Kidneys: The contrast enhanced kidneys are normal in size and without hydronephrosis. The kidneys enhance symmetrically. A circumaortic left renal vein is incidentally noted. Abdominal vasculature: The abdominal aorta is normal in course and caliber. Stomach and bowel: There is a small hiatal hernia. There is no bowel o bstruction. The appendix is well-visualized and normal. Peritoneum: There is no intraperitoneal free air or abdominal ascites. There is a fat-containing umbilical hernia. Lymphadenopathy: Prominent lymph nodes in the sandie hepatis and portacaval region measure up to 11 mm in short axis. Pelvic viscera: The bladder is decompressed around a Dean catheter and not well evaluated. The bladder appears thick walled. The prostate gland is normal as visualized. Skeletal structures: The skeletal structures are osteopenic. There is lumbosacral spondylosis, with postsurgical change from L4-L5 spinal fusion. No lytic or blastic lesions are seen. IMPRESSION: 1. There is no evidence of pulmonary embolus in the main, lobar, or segmental pulmonary arteries. 2. There is no airspace consolidation or pleural effusion. 3. Cardiomegaly with advanced coronary artery atherosclerosis. 4. The bladder is decompressed around a Dean catheter and appears thick-walled. Correlate with clinical findings and urinalysis. 5. Hepatomegaly and hepatic steatosis. 6. Cholelithiasis. 7. Additional findings as above. ACT 112: Negative or not required by law. Electronically signed by: Mohsen Pal M.D. 09/07/2023 6:04 PM Chest CTA 09/07/23 15:43 CT ANGIOGRAM OF THE CHEST; CT SCAN OF THE ABDOMEN AND PELVIS WITH IV CONTRAST CLINICAL HISTORY: Change in mental status. Generalized weakness. Diarrhea. Right-sided abdominal pain. COMPARISON STUDY: CT scan of the chest, abdomen, and pelvis dated 07/18/2023. The chest x-ray dated 09/07/2023. TECHNIQUE: Following the IV administration of 118 of Optiray 320, CT angiogram of the chest is performed from the upper abdomen to the thoracic inlet utilizing the pulmonary embolus protocol. Images are reviewed in the axial, sagittal, coronal planes. 3-D MIPS images are created and assessed. Subsequently, CT scan of the abdomen and pelvis was performed from the lung bases to the proximal femora. Images are reviewed in the axial, sagittal, and coronal planes. IV contrast was administered without complication. A dose lowering technique was utilized adhering to the principles of ALARA. FINDINGS: CHEST: Thyroid: Atrophic and heterogeneous. Thoracic aorta: The thoracic aorta is normal in caliber and demonstrates standard 3-vessel arch anatomy. The thoracic aorta is not well opacified. Pulmonary vasculature: The pulmonary trunk is normal in caliber. There are no filling defects identified in the main, lobar, or segmental pulmonary arteries to indicate pulmonary embolus. Heart: The heart is enlarged and without pericardial effusion. The coronary arteries are densely calcified. Lungs and pleural spaces: There is bibasilar scarring/atelectasis. No airspace consolidation or pleural effusion is identified. The trachea and central airways are clear. Mild diffuse peribronchial thickening suggests bronchitis/reactive airway disease. Mediastinum: There is no mediastinal lymphadenopathy. Katerine: Clear. Axillae: There is no axillary lymphadenopathy. Bony thorax: The skeletal structures are osteopenic. No lytic or blastic lesions are identified. ABDOMEN AND PELVIS: Liver: The contrast-enhanced liver is enlarged, measuring 21 cm in length. Attenuation is diminished indicating steatosis. There is no intrahepatic biliary ductal dilatation. The hepatic veins and portal veins are patent. A 10 mm left lobe hypodensity on image #49 may represent a cyst or hemangioma but is too small for definitive characterization. Gallbladder: There are small calcified gallstones without CT evidence of acute cholecystitis. Spleen: Normal in size and attenuation. Pancreas: Unremarkable. Adrenal glands: Unremarkable. Kidneys: The contrast enhanced kidneys are normal in size and without hydronephrosis. The kidneys enhance symmetrically. A circumaortic left renal vein is incidentally noted. Abdominal vasculature: The abdominal aorta is normal in course and caliber. Stomach and bowel: There is a small hiatal hernia. There is no bowel obstruction. The appendix is well-visualized and normal. Peritoneum: There is no intraperitoneal free air or abdominal ascites. There is a fat-containing umbilical hernia. Lymphadenopathy: Prominent lymph nodes in the sandie hepatis and portacaval region measure up to 11 mm in short axis. Pelvic viscera: The bladder is decompressed around a Dean catheter and not well evaluated. The bladder appears thick walled. The prostate gland is normal as visualized. Skeletal structures: The skeletal structures are osteopenic. There is lumbosacral spondylosis, with postsurgical change from L4-L5 spinal fusion. No lytic or blastic lesions are seen. IMPRESSION: 1. There is no evidence of pulmonary embolus in the main, lobar, or segmental pulmonary arteries. 2. There is no airspace consolidation or pleural effusion. 3. Cardiomegaly with advanced coronary artery atherosclerosis. 4. The bladder is decompressed around a Dean catheter and appears thick-walled. Correlate with clinical findings and urinalysis. 5. Hepatomegaly and hepatic steatosis. 6. Cholelithiasis. 7. Additional findings as above. ACT 112: Negative or not required by law. Electronically signed by: Mohsen Pal M.D. 09/07/2023 6:[address] 09/07/23 15:43 CT SCAN OF THE BRAIN WITHOUT IV CONTRAST CLINICAL HISTORY: Change in mental status. COMPARISON STUDY: CT of the brain dated 07/19/2023. MRI of the brain dated 10/12/2021. TECHNIQUE: Unenhanced axial CT scan of the brain is performed from the vertex to the skull base. A dose lowering technique was utilized adhering to the principles of ALARA. CT DOSE: 2850.04 mGy.cm FINDINGS: Brain parenchyma: A 13 mm hyperdensity within the deep left frontal lobe white matter is consistent with the patient's known cavernoma. There is age-related involutional change noting minimal subcortical and periventricular microangiopathic disease. There is no hemorrhage, mass effect, or evidence of acute territorial ischemia by CT criteria. Davis-white matter differentiation is preserved. No extra-axial fluid collection is seen. Ventricles, sulci, cisterns: Prominent secondary to involutional change. Intracranial vasculature: There is atherosclerotic calcification of the cavernous carotid and vertebral arteries. Calvarium: Postoperative change is noted in the right frontal bone. No destructive calvarial lesion is identified. Sinuses and mastoids: There is moderate to severe mucosal thickening within the frontal and ethmoid sinuses. Moderate mucosal thickening is noted in the right sphenoid sinus. The mastoid air cells are well pneumatized. Orbits: The bony orbits are grossly intact. IMPRESSION: 1. There is no hemorrhage, mass effect, or evidence of acute territorial ischemia by CT criteria. 2. 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 3. Paranasal sinus disease as above. ACT 112: Negative or not required by law. Electronically signed by: Mohsen Pal M.D. 09/07/2023 4:36 PM Knee X-Ray 09/07/23 20:04 LEFT KNEE 2 VIEWS CLINICAL HISTORY: Fall. Left knee pain. FINDINGS: AP and crosstable lateral views of the left knee are compared to study dated 01/06/2018. The skeletal structures are osteopenic. No fracture is seen. A left knee arthroplasty is in near anatomic alignment. No periprosthetic lucency is identified. There has been undersurface remodeling of the patella. There is a joint effusion. Small calcified joint bodies are noted. Prepatellar soft tissue swelling is observed. A calcified fabella is incidentally noted. IMPRESSION: 1. Soft tissue swelling and joint effusion with no acute bony abnormality identified. 2. A left knee arthroplasty is in near anatomic alignment. Electronically signed by: Mohsen Pal M.D. 09/07/2023 8:35 PM Knee X-Ray 09/07/23 20:04 RIGHT KNEE 2 VIEWS CLINICAL HISTORY: Fall. Right knee pain. FINDINGS: AP and crosstable lateral views of the right knee are compared to study dated 01/06/2018. The skeletal structures are osteopenic. No fracture is seen. There is mild tricompartmental degenerative joint space narrowing. A calcified fabella is incidentally noted. No joint effusion is identified. There is prepatellar soft tissue swelling. IMPRESSION: Soft tissue swelling with no radiographic evidence of acute fracture. Electronically signed by: Mohsen Pal M.D. 09/07/2023 8:36 PM Renal Ultrasound 09/08/23 18:09 RENAL ULTRASOUND CLINICAL HISTORY: Renal failure. COMPARISON STUDY: CT of the abdomen and pelvis September 07, 2023. TECHNIQUE: Sonography of the kidneys and the urinary bladder was performed. FINDINGS: Incidental note is made of increased hepatic echogenicity consistent with hepatic steatosis. There is no hydronephrosis. The right kidney measures 11.4 x 3.8 x 5 cm and the left measures 11.1 x 5.8 x 4.7 cm. No renal calculus or mass is identified. Both ureteral jets were identified. IMPRESSION: Unremarkable sonographic appearance of the kidneys. No hy dronephrosis. ACT 112: Negative or not required by law. Electronically signed by: Steven Jackson M.D. 09/08/2023 8:29 PM Barium Swallow X-Ray 09/09/23 10:19 DOUBLE CONTRAST BARIUM ESOPHAGRAM CLINICAL HISTORY: Dysphagia. COMPARISON STUDY: Barium esophagram dated 03/12/2023. TECHNIQUE: A standard air contrast barium esophagram is performed. Multiple spot images of the esophagus are acquired both upright and prone. FINDINGS: The patient swallowed barium and the barium pill without difficulty. There is mild to moderate esophageal dysmotility. The mucosal pattern is normal. There is no evidence of intrinsic or extrinsic mass lesion. No aspiration was seen. The gastroesophageal junction distended normally. No gastroesophageal reflux could be elicited by having the patient perform the Valsalva maneuver. Fluoroscopy time: 1.04. Ka,r: 33.9 mGy Fluoroscopic images: 14 spot images and 2 cine loops IMPRESSION: 1. Ixkb-ga-lgzgequn esophageal dysmotility. 2. Otherwise unremarkable barium esophagram ACT 112: Negative or not required by law. Electronically signed by: Mohsen Pal M.D. 09/09/2023 5:30 PM 09/07/23 15:43 CT abd pelvis IV con only Stat CT angio chest PE protocol Stat CT head/brain wo con Stat 09/08/23 18:09 US renal/blad retro comp Routine 09/09/23 10:19 FL barium swallow Routine Hospital Course (1) Hypotension: (2) Infection: (3) Lactate blood increase: (4) Dysphagia: (5) Leg pain: (6) Barretts esophagus: (7) Central hypothyroidism: (8) Panhypopituitarism: (9) Diabetes mellitus, type 2: Simona Garcia is a 67 year old male with a PMH significant for Panhypopituitarism , castrejon's esophagus, dysphagia, DMII, HTN, hypothyroidism, and hyperlipidemia Here due to generalized weakness, increased fatigue, increased dysphagia with decreased PO intake, BL leg pain and diarrhea. Hypotension: -Hypotension in ER: 74/53 resolved after 2L NSS, s/p stress dose steroids 100 mg IV hydrocortisone -CTA chest: negative for PE -CT abdomen/pelvis: no bleeding, no obstruction Etiology seem to be due to low po intake and dehydration, in the setting of adrenal insufficiency Dysphagia: Hx of Esophageal stricture hx of Castrejon esophagus -Follows with [facility], S/P EGD with balloon dilation with Dr. Scott in April -Initial improvement with dilation but symptoms have been progressively worsening -Speech consulted: PO full liquids, can increase as tolerated, soft but sized slippery diet. GI consulted during this admission -No EGD indicated at this moment due to previous on April - Barium Swallow: Igoh-jy-djoanpfq esophageal dysmotility. -Follow up outpatient with Speech pathology pathologist -Diet was advanced as tolerated, he was discharged home with instructions of slippery diet and follow up with PCP -Continue Pantoprazole 40 mg AM LUIS (acute kidney injury): -Resolved, baseline is near 1.1 -Likely pre-renal due to dehydration - s/p IV fluids -Avoid nephrotoxic agents Positive UA -WBC, wnl, lactate increased on ER, Blood culture/ urine culture negative No UTI concerns, d/c antibiotics Diarrhea: -No recent abx use -Follow infectious workup -Resolved Leg pain: -Complaining of BL leg aching -Has chronic leg pain but has been exacerbated since recent fall -Xrays: negative for any acute bony abnormality -Continue home Gabapentin was decreased to BID during admission, can return to previous dose Barretts esophagus: -Continue Protonix Central hypothyroidism: -Continue levothyroxine Panhypopituitarism: -Continue home hydrocortisone 50 mg Q6H -Patient oriented about stress dose steroids when in illness Diabetes mellitus, type 2: -Continue metformin Total Time Total Time Spent Total Time Spent (In Minutes): <30 Discharge Plan Discharge Items Patient Disposition: Home - Self-Care Reason For Visit: GENERALIZZED WEAKNESS, HYPOTENSION Discharge Diagnosis: Esophageal Dysmobility Activity: Per Instructions section Non-emergency contact: Primary Care Provider Call non-emergency contact if: you have any medication questions, your symptoms worsen, your pain is unusual for you and your temperature is above 101 Follow-up/Referrals: Fadi Bhatt MD [Primary Care Provider] - 09/17/23 12:00 pm (Will see Alba Adler PA-C in Dr Bhatt's office) Diet: Carb Consistent or DM2 and Other - See Diet Comment Addtl Attending Provider Instructions: You were admitted to the hospital due to generalized weakness, fatigue and increased dysphagia (or inability to swallow) Gastroenterology was consulted during your stay, endoscopy was not recommend at this point. Barium swallow study was realized which confirm a mild to moderate esophageal dysmotility. -Normally, the tongue pushes foods and liquids from the mouth to the throat. The foods and liquids then pass from the throat into the esophagus, which is the tube they travel through to the stomach. To keep foods or liquids moving to the stomach, the esophagus muscles tighten and relax in a wave-like motion. With esophageal dysmotility, foods and liquids do not easily pass down the esophagus.. This causes problems swallowing. - Additional, you were found very dehydrated and with a very low blood pressure in the admission. The dehydration cause a mild insult on your kidney which resolved after IV hydration. -In terms of your panhypopituitarism and steroids need. You will continue you current home dose medication. As discussed today when you start an illness, diarrhea or vomiting you should double the dose of steroids. This is called stress dose, and we do it because our body need cortisol to help fight illness. Double the dose until you feel better or see a doctor. -When you start feeling dehydrated or your intake decrease again you should drink Pedialyte which can be found on the pharmacy or grocery stores Speech-language pathologist also where consulted, they recommended the following: -Advanced diet as tolerated to regular diet -Puree diet is not recommended it will not aid in food items moving though esophagus as pure items are often thick and pasty -Choose foods that are thin and slippery in nature -Avoid food that are thick and pasty -You can add extra condiments like gravies, sauces or butter to foods when appropriate to make it moist. -Consider eating smaller more frequent meals -Do not eat 1 hour before bed and attempt to walk around after intake to aid in movement of items thought esophagus You can follow as guide the list of meals provided to you today. Make a follow up appointment with Speech-language pathology outpatient for further evaluation and treatment. Aspirations Precautions: -Alternate solids and fluids -Fully alert an upright -Single bites/ Small sips and slow rates A discharge summary will be sent to your primary care physician to ensure continuity of care. Please bring this discharge summary with you to your next office appointment so that your provider can review it at that time. Follow-up appointments: Make a follow-up appointment with your PCP within the next week. It is very important that you follow up with them shortly after discharge from the hospital. Medications: Your medication list has been reviewed and reconciled upon discharge to ensure accuracy and continuity of care. An updated list of all your medications is included with your hospital discharge paperwork. Please review this list closely, and make note of any changes. Take your medications as instructed; do not skip a dose of your medicines. Make sure all of your doctors know every medicine you are taking (including tala-ihc-uwpcyxp medicines, vitamins, and supplements). Call your primary care provider before taking any new medicines (including over- the- counter medicines, vitamins, and supplements), because some of these may interact with your current medications, or may make your symptoms worse. Tell your primary care provider if you cannot afford your medications. CALL 911 OR GO TO THE EMERGENCY DEPARTMENT if you experience any of the following: Sudden, severe abdominal pain or nausea/vomiting Severe chest pain, or chest pain that radiates (moves) to your jaw or arm Sudden, severe shortness of breath or difficulty breathing Thank you for allowing us to participate in your care. Pending Studies at Discharge: No Stand-Alone Forms: My [employer], Smoking Cessation Medications and DC Order Prescriptions: Continued tadalafil [Cialis] 10 mg tablet 10 mg PO DAILY PRN (Reason: sexual activity) Qty: 6 5RF Rx Instructions: administer approximately 30 min before sexual activity; do not use more than 1 dose per 48hrs (DME) pen needle, diabetic [BD Ultra-Fine Elsa Pen Needle] 32 gauge x 5/32" needle See Rx Instructions .Route Qty: 100 3RF Rx Instructions: use once daily with growth hormone (DME) OneTouch Verio test strips Strip See Rx Instructions miscellaneous .MEDSUPPLY Qty: 200 3RF Rx Instructions: Check 2x a day (DME) lancets [OneTouch Delica Plus Lancet] 30 gauge misc See Rx Instructions miscellaneous .MEDSUPPLY Qty: 200 3RF Rx Instructions: Check 2x a day (DME) BD PrecisionGlide Non-Sterile 18 gauge x 1 1/2" needle See Rx Instructions .ROUTE .MEDSUPPLY Qty: 100 0RF Rx Instructions: use once weekly for testosterone (DME) Monoject Safety Syringes 3 mL 25 gauge x 5/8" syringe See Rx Instructions .ROUTE .MEDSUPPLY Qty: 100 0RF Rx Instructions: use onece weekly with testosterone pantoprazole 40 mg tablet,delayed release (DR/EC) 40 mg PO QAM Qty: 90 3RF meloxicam 15 mg tablet 15 mg PO QAM Qty: 90 3RF Hold Instructions: [facility] hold x 1 week 11/2021 Rx Instructions: TAKE 1 TABLET BY MOUTH ONCE DAILY IN THE MORNING furosemide [Lasix] 40 mg tablet 40 mg PO QAM Qty: 90 3RF levothyroxine 175 mcg tablet 175 mcg PO QAM testosterone cypionate 100 mg/mL oil 100 mg IM Q7D Rx Instructions: Takes q sun alfuzosin [Uroxatral] 10 mg tablet extended release 24 hr 10 mg PO QAM Rx Instructions: administer after the same meal each day acetaminophen [Tylenol Arthritis Pain] 650 mg Tablet Extended Release 1,300 mg PO QAM Multivitamin 50 Plus Tablet 1 tab PO DAILY atorvastatin 40 mg tablet 40 mg PO QAM Patient Comments: takes qam gabapentin 100 mg capsule 100 mg PO TID hydrocortisone 10 mg tablet 10 mg PO UD Patient Comments: takes 1.5 tablets in the AM and 1/2 tablet 30 minutes later Rx Instructions: take 1.5 tablets in then morning and 1/2 tablet at least 30 minutes later per propranolol 20 mg tablet 20 mg PO BID metformin 1,000 mg tablet 1,000 mg PO BID Discharge Orders: Discharge Order (Routine); Ordered 09/10/23 Ordered By: Paula Joyce Admission Data Admit Date/Time: 09/07/23 18:39 Attending Provider: Clay Fox Admit Provider: Pro Thomas Primary Care Provider: Fadi Bhatt Other Providers: Pro Thomas; Haim Paula; Mel Mae Other Interventions: Discharge Summary Assessment (RN) Last Done: 09/10/23 14:32 Supervising Physician Co-Signing Physician Notes I personally examined the patient and verified all card points of history and exam, discussed case, and agree with decision making with Dr Bayron Joyce Overall swallowing well now. Feels good to go home, would like to go home. Extensive discussion with patient and , discussing esophageal dysmotility and management. Answered all questions the best my ability and to their satis faction. Vitals noted, in general he is awake and alert pleasant no distress. HEENT normocephalic atraumatic mucous membranes moist. Breathing unlabored no accessory muscle use good effort. Skin shows no rashes no pallor or icterus. Neuro without focal deficits. Weakness/dehydration/failure to thriveseems to be doing better now. --- Appears to be due to esophageal dysmotility: Discussed slippery diet, liquids between bites to help wash the food down, being upright when he eats and for an hour afterwards. Discussed that occasionally people may be have a small benefit from medications like calcium channel blockers or long-acting nitrates helping relax the esophageal smooth muscle some, but we discussed that given that I rarely see a major benefit, and I worry some about the impact of those medicines on his blood pressure, and therefore we will hold off on initiating them for now, but if diet modification and postural modification with eating are not doing well enough, his PCP could consider initiating in the future. Discussed that GI motility disorders are usually very multifactorial and very "mind-body" and try to lay foundation of how that comes into management. Discussed seeking an opinion at a motility center of excellence such as [place], but also cautioned against "chasing answers" given that for the most part motility disorders do not have overwhelmingly beneficial interventions and that lifestyle change and modification" working around" works well for most people overall. ----> Hemodynamic instability probably exceeded his degree of dehydration due to his adrenal insufficiency. To that end, we discussed stress dosing of steroids and adequate hydration including Pedialyte if he gets dehydrated. 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 No urinary symptoms, urine culture negative, no need for antibiotics. safe/stable for home Resident Activity Tracking Resident Involvement: Resident Care Provided Care Provided: Adult Hospital Medicine
--- NOTE | 2023-09-10 17:20 | Billing Data ---
Date of Service September 10, 2023 Coding Level of Care Code 94886 IN/OBS DISCH 30 MIN/LESS
--- NOTE | 2023-09-10 22:05 | Electrocardiogram Report ---
Test Reason : Blood Pressure : / mmHG Vent. Rate : 068 BPM Atrial Rate : 068 BPM P-R Int : 166 ms QRS Dur : 124 ms QT Int : 476 ms P-R-T Axes : 059 -49 -13 degrees QTc Int : 506 ms Sinus rhythm with Premature supraventricular complexes Left axis deviation Right bundle branch block Abnormal ECG When compared with ECG of 20-JUL-2023 06:30, Premature supraventricular complexes are now Present T wave inversion no longer evident in Lateral leads Confirmed by Manuel العراقي ([id number]) on 09/10/2023 10:04:45 PM Referred By: Confirmed By:Manuel العراقي
== END 2023-09-10 14:34 | disposition home or self-care (01) | DRG 682 ==
LOC: ED 15:13 → 2E 18:39 → SUATTDRO 18:39 → 2E 23:14